=== PATIENT | male | born 1930 | race Caucasian/White ===

== ENCOUNTER 2016-08-15 02:15 | Observation (INO) | payer OTHER ==
[~2016-08-15] VITALS: Ht 182.9 cm; Wt 95.3 kg
[~2016-08-15 02:15] MED LIST: AMLODIPINE BESYL5 M1 PO; ASPIRIN EC81 M1 PO; BENAZEPRIL HCL40 MG PO; CRESTOR10 M1 PO; FUROSEMIDE20 M1 PO; FUROSEMIDE40 MG PO; LASIX40 M1 PO; METOPROLOL TART50 MG PO; VITAMIN D1000 UNIT PO
--- NOTE | 2016-08-15 15:58 | RADIOLOGY REPORT ---
EXAMINATION: XR PORTABLE CHEST CLINICAL INFORMATION: Postop pacemaker COMPARISON: 08/13/2016 TECHNIQUE: Portable view of the chest was obtained. FINDINGS: Left-sided pacemaker lead tip overlies the right ventricle. The lungs are clear with no focal consolidation. No evidence of pneumothorax, overt pulmonary edema, or pleural effusions. Prominent central vasculature is again demonstrated. The cardiac silhouette is again noted to be prominent. No acute osseous findings are seen. IMPRESSION: Pacemaker lead tip overlies the right ventricle. No pneumothorax.
--- NOTE | 2016-08-15 16:23 | Admission Core Measures ---
Admission Meds I reviewed the following Meds: Current Medications Sig/Lexi Start time Last Medication Dose Stop Time Status Admin Acetaminophen 650 MG Q6PRN PRN 08/15 1615 UNVr (Tylenol) Atorvastatin Calcium 40 MG 1700 08/15 1700 UNVr (Lipitor) Cefazolin Sodium 2 GM IQ8 08/16 0000 UNVr (Kefzol) 08/16 0829 N/A 1 UNIT (No Carrier) Furosemide 40 MG DAILY 08/16 1000 UNVr (Lasix) Heparin Sodium 5,000 UNIT Q8 08/15 2200 UNVr (Porcine) Lisinopril 40 MG DAILY 08/16 1000 UNVr (Prinivil) Metoprolol Tartrate 50 MG BID 08/15 2200 UNVr (Lopressor) Morphine Sulfate 2 MG Q3P PRN 08/15 1615 UNVr (Morphine) Ondansetron HCl 4 MG Q8P PRN 08/15 1615 UNVr (Zofran) Sodium Chloride 1,000 ML .Q20H 08/15 1615 UNVr (Normal Saline 0.9%) 08/16 1214 Acute Coronary Syndrome Inclusion Criteria ACS Diagnosis No Inpatient Core Measures LDL Reminder: If No, please order W/I first 24hr of stay Congestive Heart Failure Inclusion Criteria CHF Diagnosis No Cerebrovascular accident Inclusion Criteria CVA/TIA Diagnosis No Inpatient Core Measures Bedside Swallow Eval Reminder: If BSE failed, place ST order Antithrombotic Reminder: Order Antithrombotic Medication by end of day 2 Antithrombotic Reminder: Document Reason Antithrombotic Not ordered by end of day 2 AFIB/Flutter Reminder: If Present, add to problem list AFIB/Flutter Reminder: Order Anticoag Medication for pts with AFIB/Flutter Atherosclerosis Reminder: If Present, add to problem list LDL Reminder: If No, please order W/I first 24hr of stay PT Order Reminder: If No, please order Venous thromboembolism Inpatient Core Measures VTE Risk Factors: Age > 40, Surgery VTE Prophylaxis Ordered Inpt Mech & Pharm No Mech VTE prophylaxis d/t No contraindications No VTE Pharm Prophylaxis d/t No contraindications Inclusion Criteria - Per Current guidelines, there needs to be overlap - treatment for the first 5 days of Warfarin therapy. - Parenteral Anticoagulation (IV or SC) needs to be - given along with Warfarin therapy. VTE Diagnosis No VTE Type NONE VTE Confirmed by (Test) NONE Problem List As ranked by this Provider includes Assessment & Plan 1. Atrial fibrillation HOME MEDS Home Med List Aspirin (Ecotrin*) 81 MG TABLET.DR 1 TAB PO DAILY HEART HEALTH (Reported) Benazepril HCl 40 MG TABLET 1 TAB PO DAILY BP (Reported) Cholecalciferol (Vitamin D3) (Vitamin D) 1,000 UNIT TABLET 1 TAB PO DAILY SUPPLEMENT (Reported) Furosemide (Lasix) 40 MG TABLET 1 TAB PO DAILY DIURETIC (Reported) Metoprolol Tartrate 50 MG TABLET 1 TAB PO BID B/P (Reported) Rosuvastatin Calcium (Crestor) 10 MG TABLET 1 TAB PO AD CHOLESTEROL (Reported )
--- NOTE | 2016-08-15 17:17 | Patient Discharge Instructions ---
Discharge Instructions General Discharge Information You were seen/treated for: Bradycardia You had these procedures: 08/15/16 permanant pacemaker placement Watch for these problems: Redness, swelling, purulent draiange, fever, signs of infection. Excessive bleeding. Palpitations, dizziness, light headedness, syncopal episode, chest pain, shortness of breath Do not soak the wound: Yes No bath, but you may shower: Yes Other wound care: Dressing change daily or as needed. Diet Continue normal diet: Yes Activity Activity Self Limited: Yes Acute Coronary Syndrome Inclusion Criteria At DC or during hospital stay patient has or had the following: ACS DIAGNOSIS No Discharge Core Measures Meds if any: Prescribed or Continued at Discharge Meds if any: NOT Prescribed or Continued at Discharge Congestive Heart Failure Inclusion Criteria At DC or during hospital stay patient has or had the following: CHF DIAGNOSIS No Discharge Core Measures Meds if any: Prescribed or Continued at Discharge Meds if any: NOT Prescribed or Continued at Discharge Cerebrovascular accident Inclusion Criteria At DC or during hospital stay patient has or had the following: CVA/TIA Diagnosis No Discharge Core Measures Meds if any: Prescribed or Continued at Discharge Meds if any: NOT Prescribed or Continued at Discharge Venous thromboembolism Inclusion Criteria VTE Diagnosis No VTE Type NONE VTE Confirmed by (Test) NONE Discharge Core Measures - Per Current guidelines, there needs to be overlap - treatment for the first 5 days of Warfarin therapy. - If discharged on Warfarin prior to 5 days of - overlap therapy, the patient will need to be - assessed for post discharge needs including - *Post discharge parental anticoagulation - *Warfarin and/or parental anticoagulation education - *Follow up date to check INR post discharge At least 5 days overlap therapy as Inpatient No Meds if any: Prescribed or Continued at Discharge Note: Overlap Therapy is Warfarin and Anticoagulant Meds if any: NOT Prescribed or Continued at Discharge
--- NOTE | 2016-08-15 17:20 | PN- Thoracic Surgery ---
Subjective Subjective: Post Op Note s/p permanant pacemaker placement Patient without c/o. Pain controlled. Denies n/v. No chest pain or shortness of breath. Objective Vital Signs and I&Os BP: 150/88 P: 60 RR: 20 O2: 99% 2L NC T: 98.0F Physical Exam: General: NAD, comfortable, A&Ox3 Chest: CTAB. RRR. Left chest dressing c/d/i. Abdomen: soft, nondistended. Ext: No calve swelling/TTP, neurovascularly intact bilateral lower extremities. Current Medications: Current Medications Sig/Lexi Start time Last Medication Dose Route Stop Time Status Admin Acetaminophen 650 MG Q6PRN PRN 08/15 1615 AC PO Atorvastatin Calcium 40 MG 1700 08/15 1700 AC PO Cefazolin Sodium 2 GM IQ8 08/16 0000 AC N/A 1 UNIT IV 08/16 0829 Furosemide 40 MG DAILY 08/16 1000 AC PO Heparin Sodium 5,000 UNIT Q8 08/15 2200 AC (Porcine) SC Lisinopril 40 MG DAILY 08/16 1000 AC PO Metoprolol Tartrate 50 MG BID 08/15 2200 AC PO Morphine Sulfate 2 MG Q3P PRN 08/15 1615 AC IV Ondansetron HCl 4 MG Q8P PRN 08/15 1615 AC IV Sodium Chloride 1,000 ML .Q20H 08/15 1615 AC IV 08/16 1214 Assessment/Plan Assessment/Plan 86yo M POD#0 s/p permanant pacemaker insertion. AVSS, patient stable. CXR without evidence of PTX. - Pain control - PRN zofran - IVF, dc once tolerating PO - advance to heart healthy diet - left arm sling - I/O's - telemetry overnight - 23hr obs Core Measures/Miscellaneous Venous Thromboembolism VTE Risk Factors: Age > 40, Surgery VTE Contraindications: No Contraindications VTE Prophylaxis Ordered Inpt: Mech & Pharm VTE Diagnosis: No VTE Type: NONE VTE Confirmed by (Test): NONE Beta Andreas Is Beta Andreas a Home Med? Yes If Yes, Was This Ordered Today? Yes Antibiotics Is Patient on Antibiotics? Yes If Yes: prophylaxis
[2016-08-15 17:30] VITALS: BP 150/88
--- NOTE | 2016-08-15 17:34 | Operative Report ---
Operative/Inv Procedure Report Surgery Date: 08/15/16 Name of Procedure: MRI compatible VVI permanent pacemaker Pre-Operative Diagnosis: Symptomatic bradycardia Post-Operative Diagnosis: Same Estimated Blood Loss: scant Surgeon/Sandwich And Drink Cart Operator: IRA SHAH,CHARMAINE Chavez JR Anesthesia: local monitored anesthesi Operative/Procedure Note Note: After placement of monitoring lines the patient's left shoulder was prepped and draped in a sterile fashion. 1% lidocaine was used as a local anesthetic. An incision was made in the deltopectoral groove and carried down to prepectoralis fascia. The cephalic vein was identified and was a fairly large caliber vessel. It was encircled with 2 silk ties. Wall venotomy was made and a Medtronic pacemaker lead model #83 SR 01 was advanced directly through the cephalic vein into the pulmonary outflow tract understands that under fluoroscopic guidance. The lead was withdrawn into the right ventricular cavity and positioned at the apex. R waves were measured at 10 mV. The pacing threshold was 0.3 V with a current of 0.2 mA and impedance of 1039 ohms. The lead was tied to the cephalic vein which was occluded. It was then secured to the prepectoralis fascia with Ethibond sutures. The lead was then connected to a Medtronic single-chamber MRI compatible pacemaker. The pocket was fashioned above the prepectoralis fascia. Hemostasis was achieved with electrocautery and surgical clips. The pocket was flushed with antibiotic irrigation. The pocket was closed with running Vicryl subcutaneous suture followed by running Vicryl subarticular suture. It was dressed with a dry sterile dressing and a pressure dressing. The patient tolerated the procedure well and was brought to the recovery room awake in stable condition. CC: NICHOL SHAH,PAULINA Wakefield
[2016-08-15 21:35] VITALS: BP 152/80
--- NOTE | 2016-08-15 23:18 | NUR ---
NURSING NOTE; PT S/P PACEMAKER PLACEMENT. VSS. PT PACED IN 60'S. LCW PACER SITE C/D/I. NO PAIN. SLING IN PLACE. PT RESTING COMFORTABLY.
[2016-08-16 07:00] VITALS: BP 154/84
[2016-08-16 08:59] VITALS: BP 156/72
--- NOTE | 2016-08-16 16:36 | RADIOLOGY REPORT ---
EXAMINATION:\H\ \N\XR CHEST CLINICAL INFORMATION: Single-lead pacemaker insertion. COMPARISON: 08/13/2016 TECHNIQUE: Single image obtained with the portable image intensifier during pacemaker insertion. Single image submitted. Fluoroscopy time: 2.39 minutes FINDINGS: A nearly nondiagnostic image centered over the lower mediastinum is submitted. A segment of a cardiac lead projects from the region of the right atrium toward the right ventricle. Osteophytes in the spine. IMPRESSION: Imaging assistance provided during pacemaker insertion.
== END 2016-08-16 12:25 ==
LOC: STS 02:15 → EDSTATUS 07:00 → STS 07:00 → PACUH 15:57 → 1NO 15:57
PROVIDERS: ADMIT Thoracic Surgery (Cardiothoracic Vascular Surgery)
PROC: 0JH604Z Insertion of Pacemaker, Single Chamber into Chest Subcutaneous Tissue and Fascia, Open Approach (ICD-10-PCS; principal; 2016-08-15)
PROC: 02HK3JZ Insertion of Pacemaker Lead into Right Ventricle, Percutaneous Approach (ICD-10-PCS; 2016-08-15)
DX: R00.1 Bradycardia, unspecified (principal); R60.9 Edema, unspecified; I48.92 Unspecified atrial flutter; I48.91 Unspecified atrial fibrillation; Z79.01 Long term (current) use of anticoagulants
CPT/HCPCS: 1328; 1425; 1530; 1748; 2000; 6020; 93005; 93010; C1786; C1898; G0378; J0690; J1644

== ENCOUNTER 2017-02-07 07:10 | Inpatient (IN) | payer OTHER ==
[~2017-02-07] VITALS: Ht 182.9 cm; Wt 93.0 kg
[~2017-02-07 07:10] MED LIST changes: +METOPROLOL TART50 M1 PO; -METOPROLOL TART50 MG PO
--- NOTE | 2017-02-07 07:24 | ED GENERAL ADULT ---
History of Present Illness General Chief Complaint: Lower Extremity Problems Stated Complaint: EDEMA TO LOWER EXTREMITIES Source: patient Exam Limitations: no limitations Vital Signs & Intake/Output Vital Signs & Intake/Output Vital Signs Date Time Temp Pulse Resp B/P B/P Pulse O2 O2 Flow FiO2 Mean Ox Delivery Rate 02/07 0932 97.8 76 20 175/98 96 Room Air 02/07 0843 98.0 80 20 174/79 96 Room Air 02/07 0746 97.0 75 20 171/83 96 Room Air 02/07 0729 94 Room Air 02/07 0714 96.9 73 18 163/90 93 Room Air Allergies Coded Allergies: NO KNOWN ALLERGIES (12/18/15) Reconcile Medications Aspirin (Ecotrin*) 81 MG TABLET.DR 1 TAB PO DAILY HEART HEALTH (Reported) Benazepril HCl 40 MG TABLET 1 TAB PO DAILY BP (Reported) Cholecalciferol (Vitamin D3) (Vitamin D) 1,000 UNIT TABLET 1 TAB PO DAILY SUPPLEMENT (Reported) Furosemide 40 MG TABLET 1 TAB PO DAILY WATER RETENTION (Reported) Metoprolol Tartrate 50 MG TABLET 1 TAB PO BID B/P (Reported) Rosuvastatin Calcium (Crestor) 10 MG TABLET 1 TAB PO AD CHOLESTEROL (Reported ) Triage Note: 86 YO MALE TO ER C/O SWELLING TO BILATERAL LOWER EXTREMITIES. 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 STATES HIS LEGS HAVE BEEN SWOLLEN FOR "AWHILE" BUT HIS MADE HIM COME IN TODAY. DENIES SOB, CHEST PAIN. PT STATES HE ONLY WEARS OXYGEN AT NIGTHTIME (2L). SATS 89-93% IN TRIAGE. Triage Nurses Notes Reviewed? yes Onset: Gradual Duration: week(s): (3) Timing: recent history HPI: 02/07/17 7:35 AM The patient is a 86-year-old male who presents to the emergency department complaining of bilateral leg swelling. According to the patient he's had bilateral leg swelling over the past 3 weeks. He denies any chest pain or shortness of breath. No fever. The onset of the symptoms were abrupt, the duration has been 3 weeks, the severity is significant as his symptoms required him to come to the emergency department for care. Past History Travel History Traveled to [place] past 21 day No Medical History Any Pertinent Medical History? 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 No Review of Systems Review of Systems Constitutional: Reports: no symptoms. EENTM: Reports: no symptoms. Respiratory: Denies: short of breath. Cardiovascular: Denies: chest pain. GI: Reports: no symptoms. Genitourinary: Reports: no symptoms. Musculoskeletal: Reports: no symptoms. Skin: Reports: rash. Neurological/Psychological: Reports: no symptoms. Hematologic/Endocrine: Reports: no symptoms. Immunologic/Allergic: Reports: no symptoms. All Other Systems: Reviewed and Negative Physical Exam Physical Exam General Appearance: alert, awake, anxious, mild distress Head: atraumatic, normal appearance Eyes: Bilateral: normal appearance, PERRL, EOMI. Ears, Nose, Throat: normal ENT inspection Neck: normal inspection Respiratory: no respiratory distress, lungs clear Cardiovascular: regular rate/rhythm, edema Peripheral Pulses: 4+ radial (R), 4+ radial (L), 4+ dorsalis pedis (R), 4+ dorsalis pedis (L) Gastrointestinal: non-tender Back: normal range of motion Extremities: pedal edema, swelling Neurologic/Psych: no motor/sensory deficits, awake, alert, oriented x 3 Skin: rash (stasis dermatitis) Lymphatic: no anterior cervical nura Comments: He has bilateral lower extremity dependent edema. Excellent bilateral dorsalis pedis pulses. He has normal capillary refill to all toes of both feet. Both feet show stasis dermatitis. There is minimal erythema. Mild increased warmth. There is a superficial abrasion on the anterior left truong. Core Measures ACS in differential dx? No CVA/TIA Diagnosis: No Severe Sepsis Present: No Septic Shock Present: No Progress Differential Diagnoses I considered the following diagnoses in my evaluation of the patient: [ Cellulitis, stasis dermatitis, DVT, dependent edema, necrotizing fasciitis] Plan of Care: Orders Procedure Date/time Status CBC WITHOUT DIFFERENTIAL 02/08 600 Active BASIC ELECTROLYTES PLUS BUN&CR 02/08 06 Active CHF Diet 02/07 L Active TROPONIN LEVEL 02/07 1400 Active EKG 02/07 1400 Active Admit to inpatient 02/07 1117 Active Pathway - chart 02/07 1101 Active House Staff 02/07 1101 Active Patient Data 02/07 1051 Active Vital Signs 02/07 1049 Active Code Status 02/07 1049 Active TROPONIN LEVEL 02/07 0734 Complete COMPREHENSIVE METABOLIC PANEL 02/07 0734 Complete CBC WITHOUT DIFFERENTIAL 02/07 0734 Complete EKG 02/07 0721 Active TRC EVALUATION (GEN) 02/07 UNK Active Weight 02/07 UNK Active VTE Mechanical Prophylaxis 02/07 UNK Active Intake & Output 02/07 UNK Active Laboratory Tests 02/07/ 0748: Anion Gap 7, Estimated GFR 58 L, BUN/Creatinine Ratio 24.2, Glucose 93, Calcium 9.7, Total Bilirubin 1.2, AST 28, ALT 35, Alkaline Phosphatase 84, Troponin I 0.02, Total Protein 7.1, Albumin 4.2, Globulin 2.9, Albumin/Globulin Ratio 1.4, CBC w Diff NO MAN DIFF REQ, RBC 5.45, MCV 87.6, MCH 27.8, RDW 18.6 H, MPV 8.4, Gran % 63.8, Lymphocytes % 22.0, Monocytes % 8.5, Eosinophils % 4.9, Basophils % 0.8, Absolute Granulocytes 4.2, Absolute Lymphocytes 1.5, Absolute Monocytes 0.6 , Absolute Eosinophils 0.3, Absolute Basophils 0.1, PUBS MCHC 31.8 L Initial ED EKG: ventricular paced beats, motion artifact, no significant change from old. Prior EKG: unchanged Departure Departure Disposition: STILL A PATIENT Condition: Stable Clinical Impression Primary Impression: CHF (congestive heart failure) Secondary Impressions: Anasarca, Dependent edema, Stasis dermatitis Referrals: LILIA SHAH,JUNIOR Garrison (PCP/Family) Departure Forms: Customer Survey General Discharge Information Admission Note Spoke With: CHRISTIANO SHAH,NASREEN Documentation of Exam: Documentation of any treatments & extenuating circumstances including Concerns Regarding Discharge (functional status, medication knowledge or non-compliance, living conditions, etc.) that warrant an admission rather than observation: [The patient has anasarca, CHF, severe stasis dermatitis now with ulcerations to the left anterior tibia. He is failing by mouth Lasix. He needs leg elevation, IV diuresis, serial troponins, consider cardiology consultation,] Critical Care Note Critical Care Note Critical Care Time: non-applicable
[2017-02-07 07:56] LABS: ABSOLUTE BASOPHIL COUNT 0.1 /CUMM (0.0-0.2); ABSOLUTE EOSINOPHIL COUNT 0.3 /CUMM (0.0-0.7); ABSOLUTE GRANULOCYTE CT 4.2 /CUMM (1.4-6.5); ABSOLUTE LYMPH COUNT 1.5 /CUMM (1.2-3.4); ABSOLUTE MONOCYTE COUNT 0.6 /CUMM (0.10-0.60); BASOPHIL % 0.8 % (0.0-2.0); EOSINOPHIL % 4.9 % (0-5); GRANULOCYTE % 63.8 % (42.2-75.2); HEMATOCRIT 47.7 % (42-52); MEAN CORPUSCULAR HGB 27.8 PG (27.0-31.0); MEAN CORPUSCULAR HGB CONC 31.8 G/DL (33.0-37.0); MEAN CORPUSCULAR VOLUME 87.6 FL (80.0-94.0); MEAN PLATELET VOLUME 8.4 FL (7.4-10.4); PLATELET COUNT 168 /CUMM (130-400); RBC DISTRIBUTION WIDTH 18.6 % (11.5-14.5); RED BLOOD CELL CT 5.45 /CUMM (4.70-6.10); WHITE BLOOD CELL COUNT 6.7 /CUMM (4.8-10.8)
--- NOTE | 2017-02-07 08:27 | ULTRASOUND REPORT ---
EXAMINATION: US TRIPLEX OF LOWER EXTREMITIES, BILATERAL CLINICAL INFORMATION: Bilateral leg swelling. COMPARISON: Bilateral lower extremity DVT study done on 12/18/2015. TECHNIQUE: Color-flow triplex imaging with spectral analysis and compression Doppler were performed on the lower extremities. FINDINGS: Respiratory variation, normal compression and augmented flow are noted throughout the lower extremities. The visualized common femoral vein, superficial femoral vein, profunda femoral vein, popliteal vein and midcalf peroneal and posterior tibial venous segments show no evidence of deep venous thrombosis. There is no Grimaldo's cyst. No significant change since prior study. IMPRESSION: No evidence of deep venous thrombosis at both lower extremities, unchanged since 12/18/2015.
[2017-02-07] MEDS ORDERED: FUROSEMIDE40 M1 PO (08:31)
--- NOTE | 2017-02-07 09:50 | RADIOLOGY REPORT ---
EXAMINATION: XR PORTABLE CHEST CLINICAL INFORMATION: 86-year-old male with leg swelling, suspected CHF. COMPARISON: Chest done on 08/15/2016. TECHNIQUE: Portable frontal view of the chest was obtained. FINDINGS: There is evidence of mild pulmonary venous hypertension present. Nonspecific right infrahilar opacity is noted, may represent changes secondary to enlarged pulmonary artery, infrahilar lung mass, focal area of vascular congestion or combination thereof. The right lateral CP angle is mildly blunted suggestive of small effusion, new since prior study. Single-lead pacer wire is present with its tip seen projecting in the region of the right ventricle. The cardiomediastinal silhouette is mildly enlarged. The pulmonary venous congestion and possible trace right-sided pleural effusion appear new since prior study. IMPRESSION: 1. Features consistent with mild CHF. 2. Nonspecific right infrahilar masslike opacity is noted, not optimally characterized. Nonemergent follow-up contrast enhanced CT scan of the chest may be considered for further full detail evaluation, if clinically appropriate.
--- NOTE | 2017-02-07 10:57 | History & Physical ---
LOUISA OSEGUERA MD,[facility] 02/07/17 1057: General Information and HPI MD Statement: I have seen and personally examined MARLENY LORA and documented this H&P. The patient is a 86 year old M who presented with a patient stated chief complaint of [bilateral lower extremity swelling]. 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 According to the patient, this lower extremity swelling started 3 weeks ago and progressively got worse. He was initially taking his home dose of 40 mg of by mouth Lasix but when the symptoms are not relieved he increased to 60 mg of Lasix in the last few days. Despite increase in by mouth Lasix his symptoms were not getting better and therefore Patient was convinced by his to come to emergency department. Patient denied any recent change in medications. Patient also denied any recent increase in salt intake or eating out recently. Review of system was negative for any headaches, acute visual changes, chest pain, dyspnea on exertion, nocturnal dyspnea, palpitations, fever, rash, cough, nausea, vomiting, abdominal pain, constipation, diarrhea, or dysuria. 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 spouse, child Services at Home: None Primary Language: Uzbek Functional Ability ADLs Independent: dressing, eating, toileting, bathing. Ambulation: independent IADLs Independent: shopping, housework, finances, food prep, telephone. Needs Assist: transportation, medication admin. Review of Systems Review of Systems Constitutional: Denies: chills, fever. EENTM: Denies: visual changes. Cardiovascular: Denies: chest pain, palpitations. Respiratory: Denies: cough, short of breath. GI: Denies: bloating, nausea, vomiting. Genitourinary: Denies: discharge. Musculoskeletal: Denies: back pain. All Other Systems: Reviewed and Negative Exam & Diagnostic Data Last 24 Hrs of Vital Signs/I&O Vital Signs Date Time Temp Pulse Resp B/P B/P Pulse O2 O2 Flow FiO2 Mean Ox Delivery Rate 02/07 0932 97.8 76 20 175/98 96 Room Air 02/07 0843 98.0 80 20 174/79 96 Room Air 02/07 0746 97.0 75 20 171/83 96 Room Air 02/07 0729 94 Room Air 02/07 0714 96.9 73 18 163/90 93 Room Air Intake & Output 02/07 1600 02/07 0800 02/07 0000 Intake Total 0 Output Total 100 Balance -100 0 Intake, Oral 0 Output, Urine 100 Patient 210 lb Weight Weight Reported by Patient Measurement Method Physical Exam General Appearance Alert, Oriented X3, Cooperative Skin No Rashes HEENT Atraumatic, PERRLA Neck No JVD Cardiovascular Regular Rate, Normal S1, Normal S2, lEFT UPPER CHEST PACEMAKER Lungs Normal Air Movement, DECREASED AIR ENTRY AT THE LUNG BASES Abdomen Normal Bowel Sounds, Soft, No Tenderness, HERNIA, SCAR ANURAG Neurological Normal Speech, Normal Tone, Sensation Intact Extremities 2 + EXTREMITY EDEMA. CHRONIC SKIN CHANGES AND SKIN BREAK DOWN Vascular Normal Pulses Last 24 Hrs of Labs/Burak: Laboratory Tests 02/07/17 0748: Anion Gap 7, Estimated GFR 58 L, BUN/Creatinine Ratio 24.2, Glucose 93, Calcium 9.7, Total Bilirubin 1.2, AST 28, ALT 35, Alkaline Phosphatase 84, Troponin I 0.02, Total Protein 7.1, Albumin 4.2, Globulin 2.9, Albumin/Globulin Ratio 1.4, CBC w Diff NO MAN DIFF REQ, RBC 5.45, MCV 87.6, MCH 27.8, RDW 18.6 H, MPV 8.4, Gran % 63.8, Lymphocytes % 22.0, Monocytes % 8.5, Eosinophils % 4.9, Basophils % 0.8, Absolute Granulocytes 4.2, Absolute Lymphocytes 1.5, Absolute Monocytes 0.6 , Absolute Eosinophils 0.3, Absolute Basophils 0.1, PUBS MCHC 31.8 L Diagnostic Data EKG Results Ventricular paced, heart rate 62, left axis deviation, QTC 512, CXR Results Features consistent with mild CHF. Nonspecific right infrahilar masslike opacity is noted, not optimally characterized. Nonemergent follow-up contrast enhanced CT scan of the chest may be considered for further full detail evaluation, if clinically appropriate. Other Results No evidence of deep venous thrombosis at both lower extremities, unchanged since 12/18/2015. 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 Vitals in emergency department patient afebrile, no tachypnea, no tachycardia, systolic blood pressure ranging from 171-192 and diastolic 83-100. Oxygen saturation of 93-96% on room air. Significant labs on admission, no significant electrolyte abnormality, sodium 140, potassium of 4.2, BUN of 29 and creatinine of 1.2, platelet count of 168. Troponin of 0.02, no acute ST changes in EKG, chest x-ray showed Features consistent with mild CHF. Patient was admitted on telemetry so for the management of falling problems #1 Acute on chronic diastolic CHF #2 Bilateral Lower extremity erythema/skin breakdown #3 Recent pacemaker placement for bifascicular block #4 History of paroxysmal atrial fibrillation not on anticoagulation -Most likely acute diastolic CHF exacerbation vs rule out MA vs non compliance with medications -No acute EKG ST changes and negative troponin 0.02 x 2, Pro-Bnp 2810. - Hemodynamically stable, 2+ve B/L Lowr extremity edema with erythema and chronic skin changes - CXR shows signs of fluid overload. - Admit to telemetry - Vitals q Shift - Monitor I/O - Daily weight - Cardio consult - Last Echo was done in was done in vb net developer's office in 2017 - Continue Lisinopril 10mg - Give Furosemide 40mg IV BID - Continue Metoprolol 50 mg PO Daily - lipid panel was checked recently - ASA 81 mg Po daily. - Give dinner (CHF Diet) Patient is full code Patient is on heparin subcutaneous for DVT prophylaxis Patient is on pain management Patient is on CHF diet As Ranked By This Provider Problem List: 1. CHF (congestive heart failure) 2. Pulmonary hypertension Core Measures/Miscellaneous Acute Coronary Syndrome ACS Diagnosis: Yes Cerebrovascular Accident CVA/TIA Diagnosis: No Congestive Heart Failure CHF Diagnosis: Yes Date of most recent Echo: 12/18/15 Last Known EF %: 65 EDNA/ARB for EF <40%: Yes VTE (View Protocol) VTE Risk Factors: Acute medical illness, Age > 40 No [facility] VTE prophylaxis d/t: No contraindications No VTE Pharm Prophylaxis d/t: No contraindications VTE Diagnosis: No VTE Type: NONE VTE Confirmed by (Test): NONE Sepsis (View Protocol) Severe Sepsis Present: No Septic Shock Septic Shock Present: No Miscellaneous Documentation Attending Case Discussed With: SUSAN CAT MD Primary Care Physician: JUNIOR RODRIGUES MD Patient sees these Specialists Lodging Facilities Manager Level of Patient Care: Telemetry Consults Needed: Consulting Specialty: Cardiology SUSAN CAT 02/14/17 1132: General Information and HPI Allergies/Medications Home Med list Aspirin (Ecotrin*) 81 MG TABLET.DR 1 TAB PO DAILY HEART HEALTH (Reported) Benazepril HCl 40 MG TABLET 1 TAB PO DAILY BP (Reported) Cholecalciferol (Vitamin D3) (Vitamin D) 1,000 UNIT TABLET 1 TAB PO DAILY SUPPLEMENT (Reported) Furosemide 40 MG TABLET 1 TAB PO QAM WATER RETENTION (Reported) Furosemide (Lasix) 20 MG TABLET 1 TAB PO QPM LEG EDEMA Metoprolol Tartrate 50 MG TABLET 1 TAB PO BID B/P (Reported) Rosuvastatin Calcium (Crestor) 10 MG TABLET 1 TAB PO AD CHOLESTEROL (Reported ) Attending MD Review Statement Attending Statement Attending MD Statement: examined this patient, discuss w/resident/PA/POWER GENERATION TECHNICIAN, agreed w/resident/PA/POWER GENERATION TECHNICIAN, reviewed EMR data (avail), discussed with nursing, discussed with case mgmt Attending Assessment/Plan: Agree with the above assessment plan. Please see my separate attending note for more details.
[2017-02-07 13:04] VITALS: BP 192/100
--- NOTE | 2017-02-07 13:32 | Admission Certification ---
Admission Certification Certification Statement - As attending physician, I certify that at the time of - admission, based on clinical presentation, severity of - symptoms, need for further diagnostic testing and - therapeutic interventions, and risk of adverse outcomes - without in-hospital treatment, in my clinical assessment, - this patient requires an acute hospital stay for a minimum - of two nights or longer. I have also considered psychsocial - factors such as support system, advanced age, financial - issues, cognitive issues, and failed out-patient treatments, - past re-admission history, safety of patient, and lack of - compliance as applicable. Specific rationale supporting this admission is: acute chf exacerbation
--- NOTE | 2017-02-07 14:23 | Cons- Cardiology ---
General Information and HPI Consulting Request Date of Consult: 02/07/17 Requested By: SUSAN CAT MD Reason for Consult: edema Source of Information: patient, old records History of Present Illness: This is a pleasant 86-year-old male with a past medical history of heart failure with preserved ejection fraction, pulmonary hypertension, paroxysmal atrial flutter not on anticoagulation due to GI bleed risk, hypertension, hyperlipidemia, and bifascicular block status post single lead pacemaker 2016 who presents to [facility] with chief complaint approximately 3 weeks of worsening lower extremity edema with associated discomfort. He denies associated orthopnea, paroxysmal nocturnal dyspnea, chest pain, shortness of breath, palpitations, headache, slurring of speech, or syncope. Denies associated subjective fever. Was already on oral Lasix prior to the edema developing. Denies productive cough. Allergies/Medications Allergies: Coded Allergies: NO KNOWN ALLERGIES (12/18/15) Home Med List: Aspirin (Ecotrin*) 81 MG TABLET.DR 1 TAB PO DAILY HEART HEALTH (Reported) Benazepril HCl 40 MG TABLET 1 TAB PO DAILY BP (Reported) Cholecalciferol (Vitamin D3) (Vitamin D) 1,000 UNIT TABLET 1 TAB PO DAILY SUPPLEMENT (Reported) Furosemide 40 MG TABLET 1 TAB PO DAILY WATER RETENTION (Reported) Metoprolol Tartrate 50 MG TABLET 1 TAB PO BID B/P (Reported) Rosuvastatin Calcium (Crestor) 10 MG TABLET 1 TAB PO AD CHOLESTEROL (Reported ) Current Medications: Current Medications Sig/Lexi Start time Last Medication Dose Route Stop Time Status Admin Aspirin Buffered 81 MG DAILY 02/07 1257 AC 02/07 PO 1332 Atorvastatin Calcium 40 MG 1700 02/07 1700 AC PO Cholecalciferol 1,000 IU DAILY 02/07 1257 AC 02/07 PO 1333 Furosemide 40 MG DAILY 02/08 1000 AC IV Furosemide 0 .STK-MED ONE 02/07 1116 DC IV Furosemide 20 MG ONCE ONE 02/07 1100 DC 02/07 IV PUSH 02/07 1101 1112 Heparin Sodium 5,000 UNIT Q8 02/07 1400 AC 02/07 (Porcine) SC 1334 Lisinopril 40 MG DAILY 02/07 1259 AC 02/07 PO 1332 Metoprolol Tartrate 50 MG BID 02/07 1258 AC 02/07 PO 1333 Review of Systems Review of Systems: As per above HPI. The remainder of a 10 point review of systems was reviewed and was otherwise negative. 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 spouse, child Services at Home: None Primary Language: Samoan Smoking Status: Former Smoker Functional Ability ADLs Independent: dressing, eating, toileting, bathing. Ambulation: independent IADLs Independent: shopping, housework, finances, food prep, telephone. Needs Assist: transportation, medication admin. ECHO Results (as available) Date of last Echo 12/18/15 EF% 60 Exam & Diagnostic Data Vital Signs and I&O Vital Signs Date Time Temp Pulse Resp B/P B/P Pulse O2 O2 Flow FiO2 Mean Ox Delivery Rate 02/07 1333 77 192/100 02/07 1332 77 192/100 02/07 1304 98.3 77 20 192/100 95 Room Air 02/07 1156 97.0 94 18 189/92 95 Room Air 02/07 1100 98.0 88 174/90 02/07 0932 97.8 76 20 175/98 96 Room Air 02/07 0843 98.0 80 20 174/79 96 Room Air 02/07 0746 97.0 75 20 171/83 96 Room Air 02/07 0729 94 Room Air 02/07 0714 96.9 73 18 163/90 93 Room Air Intake & Output 02/07 1600 02/07 0800 02/07 0000 02/06 1600 02/06 0800 02/06 0000 Intake Total 0 Output Total 450 Balance -450 0 Intake, Oral 0 Output, Urine 450 Patient 207 lb 210 lb Weight Weight Chair scale Reported by Patient Measurement Method Physical Exam: General: no apparent distress. Alert. Eyes: No obvious scleral icterus. HEENT: No jugular venous distention or abnormal jugular venous pulsations. Cardiovascular: Normal intensity S1/S2. Regular. PPM. Respiratory: No rales or rhonchi Abdomen: Soft, nontender with no guarding or rebound tenderness. Musculoskeletal: No clubbing or cyanosis noted, 2+ lower extremity edema Skin: Warm, Erythema, ulceration noted Neurologic: No gross focal deficits noted. Labs/Burak Results: Laboratory Tests 02/07 0748 Chemistry Sodium (137 - 145 mmol/L) 140 Potassium (3.5 - 5.1 mmol/L) 4.2 Chloride (98 - 107 mmol/L) 98 Carbon Dioxide (22 - 30 mmol/L) 34 H Anion Gap (5 - 16) 7 BUN (9 - 20 mg/dL) 29 H Creatinine (0.7 - 1.2 mg/dL) 1.2 Estimated GFR (>60 ml/min) 58 L BUN/Creatinine Ratio (7 - 25 %) 24.2 Glucose (65 - 99 mg/dL) 93 Calcium (8.4 - 10.2 mg/dL) 9.7 Total Bilirubin (0.2 - 1.3 mg/dL) 1.2 AST (17 - 59 U/L) 28 ALT (21 - 72 U/L) 35 Alkaline Phosphatase (< 127 U/L) 84 Troponin I (<0.11 ng/ml) 0.02 Total Protein (6.3 - 8.2 g/dL) 7.1 Albumin (3.5 - 5.0 g/dL) 4.2 Globulin (1.9 - 4.2 gm/dL) 2.9 Albumin/Globulin Ratio (1.1 - 2.2 %) 1.4 Hematology CBC w Diff NO MAN DIFF REQ WBC (4.8 - 10.8 /CUMM) 6.7 RBC (4.70 - 6.10 /CUMM) 5.45 Hgb (14.0 - 18.0 G/DL) 15.2 Hct (42 - 52 %) 47.7 MCV (80.0 - 94.0 FL) 87.6 MCH (27.0 - 31.0 PG) 27.8 RDW (11.5 - 14.5 %) 18.6 H Plt Count (130 - 400 /CUMM) 168 MPV (7.4 - 10.4 FL) 8.4 Gran % (42.2 - 75.2 %) 63.8 Lymphocytes % (20.5 - 51.1 %) 22.0 Monocytes % (1.7 - 9.3 %) 8.5 Eosinophils % (0 - 5 %) 4.9 Basophils % (0.0 - 2.0 %) 0.8 Absolute Granulocytes (1.4 - 6.5 /CUMM) 4.2 Absolute Lymphocytes (1.2 - 3.4 /CUMM) 1.5 Absolute Monocytes (0.10 - 0.60 /CUMM) 0.6 Absolute Eosinophils (0.0 - 0.7 /CUMM) 0.3 Absolute Basophils (0.0 - 0.2 /CUMM) 0.1 PUBS MCHC (33.0 - 37.0 G/DL) 31.8 L Diagnostic Data EKG Results Tracing was personally reviewed; paced rhythm with underlying atrial flutter; baseline artifact/wander CXR Results 1. Features consistent with mild CHF. 2. Nonspecific right infrahilar masslike opacity is noted, not optimally characterized. Nonemergent follow-up contrast enhanced CT scan of the chest may be considered for further full detail evaluation, if clinically appropriate. Other Results venous Doppler IMPRESSION: No evidence of deep venous thrombosis at both lower extremities, unchanged since 12/18/2015. Assessment/Plan Assessment/Plan 1. Acute on chronic diastolic heart failure with lower extremity edema 2. Paroxysmal atrial flutter not on anticoagulation due to GI bleed risk 3. Pulmonary hypertension 4. Hypertension 5. Hyperlipidemia 6. Prior colorectal cancer status post resection and radiation therapy 7. History of bifascicular block; status post single lead pacemaker 2016 Patient presents with increasing lower extremity edema over the last 3 weeks. May be due to right-sided heart failure in the setting of known severe pulmonary hypertension; would obtain an echocardiogram. Agree with IV Lasix. Lower extremity erythema noted, monitor for signs of superimposed infection. Would obtain a baseline BNP level. If blood pressure remains elevated consider increasing the metoprolol to 100 milligrams p.o. b.i.d.. Consider wound care evaluation for the lower extremity ulceration. Kt Jean MD [facility] Consult Acknowledgment - Thank you for your consult request.
[2017-02-07 14:47] VITALS: BP 128/72
--- NOTE | 2017-02-07 14:51 | PN- Att Addend ---
Attending MD Review Statement Attending Statement Attending MD Statement: examined this patient, discuss w/resident/PA/HEEL SPRAYER FIRST, agreed w/resident/PA/HEEL SPRAYER FIRST, reviewed EMR data (avail), discussed w/nursing, discussed w/ case mgmt Attending Assessment/Plan: Laboratory Tests 02/07/17 0748: Anion Gap 7, Estimated GFR 58 L, BUN/Creatinine Ratio 24.2, Glucose 93, Calcium 9.7, Total Bilirubin 1.2, AST 28, ALT 35, Alkaline Phosphatase 84, Troponin I 0.02, Total Protein 7.1, Albumin 4.2, Globulin 2.9, Albumin/Globulin Ratio 1.4, CBC w Diff NO MAN DIFF REQ, RBC 5.45, MCV 87.6, MCH 27.8, RDW 18.6 H, MPV 8.4, Gran % 63.8, Lymphocytes % 22.0, Monocytes % 8.5, Eosinophils % 4.9, Basophils % 0.8, Absolute Granulocytes 4.2, Absolute Lymphocytes 1.5, Absolute Monocytes 0.6 , Absolute Eosinophils 0.3, Absolute Basophils 0.1, PUBS MCHC 31.8 L Vital Signs Date Time Temp Pulse Resp B/P B/P Pulse O2 O2 Flow FiO2 Mean Ox Delivery Rate 02/07 1424 Room Air Room Air 02/07 1333 77 192/100 02/07 1332 77 192/100 02/07 1304 98.3 77 20 192/100 95 Room Air 02/07 1156 97.0 94 18 189/92 95 Room Air 02/07 1100 98.0 88 174/90 02/07 0932 97.8 76 20 175/98 96 Room Air 02/07 0843 98.0 80 20 174/79 96 Room Air 02/07 0746 97.0 75 20 171/83 96 Room Air 02/07 0729 94 Room Air 02/07 0714 96.9 73 18 163/90 93 Room Air 86-Male with PMH significant for hypertension, hyperlipidemia, paroxysmal atrial flutter not on anticoagulation because of GI bleeding, history of congestive heart failure, colorectal cancer s/p surgery and radiation in 2012, oxygen dependent on 2 L only at nighttime came to emergency department for chief complaint of bilateral lower extremity swelling going on for few weeks. Pt noted worsening swelling in few weeks. No orthopnea, no sob , no exertional dyspnea, no claudication symptoms, no chest pain. Pt has h/o severe pulm htn . Acute diastolic chf exacerbation in setting of severe pulm htn- start on iv lasix 40mg daily. monitor on tele, strict I & O. cardiology consult Redness and swellilng b/l LE- does not look infected at present but will monitor closelly for signs of infection. d/w pt the care plan.
[2017-02-07 22:00] VITALS: BP 138/88
[2017-02-08 07:43] VITALS: BP 142/82
[2017-02-08 07:58] LABS: ABSOLUTE BASOPHIL COUNT 0 /CUMM (0.0-0.2); ABSOLUTE EOSINOPHIL COUNT 0.3 /CUMM (0.0-0.7); ABSOLUTE MONOCYTE COUNT 0.5 /CUMM (0.10-0.60); BASOPHIL % 0.5 % (0.0-2.0); EOSINOPHIL % 4.8 % (0-5); GRANULOCYTE % 67.8 % (42.2-75.2); HEMATOCRIT 49.1 % (42-52); MEAN CORPUSCULAR HGB 28.1 PG (27.0-31.0); MEAN PLATELET VOLUME 8.5 FL (7.4-10.4); PLATELET COUNT 158 /CUMM (130-400); RBC DISTRIBUTION WIDTH 18.5 % (11.5-14.5); RED BLOOD CELL CT 5.58 /CUMM (4.70-6.10); WHITE BLOOD CELL COUNT 5.9 /CUMM (4.8-10.8)
--- NOTE | 2017-02-08 10:08 | PN- Housestaff ---
Subjective Follow-up For: #1 Acute on chronic diastolic CHF #2 Bilateral Lower extremity erythema/skin breakdown #3 Recent pacemaker placement for bifascicular block #4 History of paroxysmal atrial fibrillation not on anticoagulation Complaints: no complaints Tele-Events Since Last Visit: NO EVENTS Subjective: Patient was examined by me at bedside, patient looks comfortable. Review of Systems Constitutional: Reports: no symptoms. EENTM: Reports: no symptoms. Cardiovascular: Reports: no symptoms. Respiratory: Reports: no symptoms. Gastrointestinal: Reports: no symptoms. Genitourinary: Reports: no symptoms. Musculoskeletal: Reports: no symptoms. Skin: Reports: see HPI, erythema, lesions (lower limb ulcers). Neurological/Psychological: Reports: no symptoms. Hematologic/Endocrine: Reports: no symptoms. Immunologic/Allergic: Reports: no symptoms. Objective Last 24 Hrs of Vital Signs/I&O Vital Signs Date Time Temp Pulse Resp B/P B/P Pulse O2 O2 Flow FiO2 Mean Ox Delivery Rate 02/08 0817 68 142/82 02/08 0817 68 142/82 02/08 0743 98.1 68 20 142/82 95 Nasal Cannula 02/08 0000 Nasal 2.0L Cannula 02/07 2200 98.0 62 20 138/88 99 Nasal 2.0L Cannula 02/07 2150 62 138/88 02/07 1447 98.8 60 20 128/72 95 Room Air 02/07 1424 Room Air Room Air 02/07 1333 77 192/100 02/07 1332 77 192/100 02/07 1304 98.3 77 20 192/100 95 Room Air 02/07 1156 97.0 94 18 189/92 95 Room Air Intake & Output 02/08 1600 02/08 0800 02/08 0000 Intake Total 200 690 Output Total 500 1080 Balance -300 -390 Intake, IV 0 0 Intake, Oral 200 690 Number 1 0 Bowel Movements Output, Urine 500 1080 Patient 206 lb Weight Weight Chair scale Measurement Method Physical Exam General Appearance: Alert, Oriented X3, Cooperative, No Acute Distress Skin: ulcers about 1X1 inch on both legs dried ulcerated skin lesion on the epigastric area Sepsis Skin Exam (color): Normal for Ethnicity HEENT: Atraumatic, PERRLA, EOMI, Mucous Membr. moist/pink Neck: Supple Cardiovascular: Regular Rate, Normal S1, Normal S2 (left upper chest pacemaker) Lungs: Clear to Auscultation, Normal Air Movement Abdomen: Normal Bowel Sounds, Soft, No Tenderness (umbilical hernia, scar) Neurological: Normal Speech Extremities: 2+ lower limb edema, chronic erythema and multiple skin break down Vascular: Normal Pulses Current Medications: Current Medications Sig/Lexi Start time Last Medication Dose Route Stop Time Status Admin Acetaminophen 650 MG Q6P PRN 02/07 1500 AC PO Aspirin Buffered 81 MG DAILY 02/07 1257 AC 02/08 PO 0816 Atorvastatin Calcium 40 MG 1700 02/07 1700 AC 02/07 PO 1650 Cholecalciferol 1,000 IU DAILY 02/07 1257 AC 02/08 PO 0817 Furosemide 40 MG DAILY 02/08 1000 AC 02/08 IV 0817 Furosemide 0 .STK-MED ONE 02/07 1116 DC IV Heparin Sodium 5,000 UNIT Q8 02/07 1400 AC 02/08 (Porcine) SC 0545 Lisinopril 40 MG DAILY 02/07 1259 AC 02/08 PO 0817 Metoprolol Tartrate 50 MG BID 02/07 1258 AC 02/08 PO 0817 Morphine Sulfate 0.5 MG Q6P PRN 02/07 1515 AC IV Oxycodone HCl 5 MG Q6P PRN 02/07 1515 AC PO Last 24 Hrs of Lab/Burak Results Last 24 Hrs of Labs/Mics: Laboratory Tests 02/08/17 0600: Anion Gap 10, Estimated GFR 58 L, BUN/Creatinine Ratio 25.0, CBC w Diff NO MAN DIFF REQ, RBC 5.58, MCV 88.0, MCH 28.1, RDW 18.5 H, MPV 8.5, Gran % 67.8, Lymphocytes % 17.7 L, Monocytes % 9.2, Eosinophils % 4.8, Basophils % 0.5, Absolute Granulocytes 4.0, Absolute Lymphocytes 1.0 L, Absolute Monocytes 0.5, Absolute Eosinophils 0.3, Absolute Basophils 0, PUBS MCHC 32.0 L 02/07/17 1815: Urine Color YEL, Urine Clarity CLEAR, Urine pH 6.0, Ur Specific [place] 1.015, Urine Protein 100 H, Urine Ketones NEG, Urine Nitrite NEG, Urine Bilirubin NEG, Urine Urobilinogen 1.0, Ur Leukocyte Esterase NEG, Ur Microscopic SEDIMENT EXAMINED, Urine WBC RARE, Urine Hemoglobin NEG, Urine Glucose NEG 02/07/17 1455: Troponin I 0.02, [id number]-[id number] Pept 2810 H Orders EKG Findings: Ventricular paced, heart rate 62, left axis deviation, QTC 512 Radiology Findings: CXR Results Features consistent with mild CHF. Nonspecific right infrahilar masslike opacity is noted, not optimally characterized. Nonemergent follow-up contrast enhanced CT scan of the chest may be considered for further full detail evaluation, if clinically appropriate. 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 Patient was admitted on telemetry so for the management of the following problems: #1 Acute on chronic diastolic CHF #2 Bilateral Lower extremity erythema/skin breakdown, not infectious as no fever or increasing WBCs count #3 Recent pacemaker placement for bifascicular block #4 History of paroxysmal atrial fibrillation not on anticoagulation Plan: Vitals q Shift - Monitor I/O - Daily weight - Continue Lisinopril 40mg - Give Furosemide 40mg IV BID - Continue Metoprolol 50 mg PO Daily - ASA 81 mg Po daily. - holding off antibiotcs - elevate extremities -wound care consultation - CHF Diet Patient is full code Patient is on heparin subcutaneous for DVT prophylaxis Patient is on pain management Patient is on CHF diet As Ranked By This Provider Problem List: 1. CHF (congestive heart failure) 2. Pulmonary hypertension Problem List: 1. Atrial fibrillation 2. CHF (congestive heart failure) 3. Pulmonary hypertension Pain Ratin Pain Location: n/a Pain Goal: Remain pain free Pain Plan: Tylenol PRN Tomorrow's Labs & Rationales: BEP Patient is on Lasix DVT/Prophylaxis: pharmacological Consulting Request: Consulting Specialty: Cardiology
--- NOTE | 2017-02-08 11:08 | PN- Cardiology ---
Subjective Subjective: The patient is feeling better today. His edema has improved. He is not complaining of chest pain or shortness of breath. His enzymes are negative so far. He is in a paced rhythm on the monitor with no significant arrhythmias. BUN is 30, otherwise the electrolytes are normal. He is receiving IV Lasix once daily. Objective Vital Signs and I&Os Vital Signs Date Time Temp Pulse Resp B/P B/P Pulse O2 O2 Flow FiO2 Mean Ox Delivery Rate 02/08 0817 68 142/82 02/08 0817 68 142/82 02/08 0743 98.1 68 20 142/82 95 Nasal Cannula 02/08 0000 Nasal 2.0L Cannula 02/07 2200 98.0 62 20 138/88 99 Nasal 2.0L Cannula 02/07 2150 62 138/88 02/07 1447 98.8 60 20 128/72 95 Room Air 02/07 1424 Room Air Room Air 02/07 1333 77 192/100 02/07 1332 77 192/100 02/07 1304 98.3 77 20 192/100 95 Room Air 02/07 1156 97.0 94 18 189/92 95 Room Air Intake & Output 02/08 1600 02/08 0800 02/08 0000 02/07 1600 02/07 0800 02/07 0000 Intake Total 200 690 480 0 Output Total 500 1080 800 Balance -300 -390 -320 0 Intake, IV 0 0 Intake, Oral 200 690 480 0 Number 1 0 0 Bowel Movements Output, Urine 500 1080 800 Patient 206 lb 207 lb 210 lb Weight Weight Chair scale Chair scale Reported by Patient Measurement Method Physical Exam: He is in no distress HEENT exam is normal Chest is clear Heart reveals regular rhythm and no murmurs Abdomen is benign Extremities reveal 1+ edema with evidence of resolving edema. Current Medications: Current Medications Sig/Lexi Start time Last Medication Dose Route Stop Time Status Admin Acetaminophen 650 MG Q6P PRN 02/07 1500 AC PO Aspirin Buffered 81 MG DAILY 02/07 1257 AC 02/08 PO 0816 Atorvastatin Calcium 40 MG 1700 02/07 1700 AC 02/07 PO 1650 Cholecalciferol 1,000 IU DAILY 02/07 1257 AC 02/08 PO 0817 Furosemide 40 MG DAILY 02/08 1000 AC 02/08 IV 0817 Furosemide 0 .STK-MED ONE 02/07 1116 DC IV Heparin Sodium 5,000 UNIT Q8 02/07 1400 AC 02/08 (Porcine) ND 0545 Lisinopril 40 MG DAILY 02/07 1259 AC 02/08 PO 0817 Metoprolol Tartrate 50 MG BID 02/07 1258 AC 02/08 PO 0817 Morphine Sulfate 0.5 MG Q6P PRN 02/07 1515 AC IV Oxycodone HCl 5 MG Q6P PRN 02/07 1515 AC PO Results Last 48 Hrs of Labs/Mics: Laboratory Tests 02/08/17 0600: Anion Gap 10, Estimated GFR 58 L, BUN/Creatinine Ratio 25.0, CBC w Diff NO MAN DIFF REQ, RBC 5.58, MCV 88.0, MCH 28.1, RDW 18.5 H, MPV 8.5, Gran % 67.8, Lymphocytes % 17.7 L, Monocytes % 9.2, Eosinophils % 4.8, Basophils % 0.5, Absolute Granulocytes 4.0, Absolute Lymphocytes 1.0 L, Absolute Monocytes 0.5, Absolute Eosinophils 0.3, Absolute Basophils 0, PUBS MCHC 32.0 L 02/07/17 1815: Urine Color YEL, Urine Clarity CLEAR, Urine pH 6.0, Ur Specific [place] 1.015, Urine Protein 100 H, Urine Ketones NEG, Urine Nitrite NEG, Urine Bilirubin NEG, Urine Urobilinogen 1.0, Ur Leukocyte Esterase NEG, Ur Microscopic SEDIMENT EXAMINED, Urine WBC RARE, Urine Hemoglobin NEG, Urine Glucose NEG 02/07/17 1455: Troponin I 0.02, Few-D-Rssbeckdjpc Pept 2810 H 02/07/17 0748: Anion Gap 7, Estimated GFR 58 L, BUN/Creatinine Ratio 24.2, Glucose 93, Calcium 9.7, Total Bilirubin 1.2, AST 28, ALT 35, Alkaline Phosphatase 84, Troponin I 0.02, Total Protein 7.1, Albumin 4.2, Globulin 2.9, Albumin/Globulin Ratio 1.4, TSH 7.340 H, Free T4 1.14, CBC w Diff NO MAN DIFF REQ, RBC 5.45, MCV 87.6, MCH 27.8, RDW 18.6 H, MPV 8.4, Gran % 63.8, Lymphocytes % 22.0, Monocytes % 8.5, Eosinophils % 4.9, Basophils % 0.8, Absolute Granulocytes 4.2, Absolute Lymphocytes 1.5, Absolute Monocytes 0.6, Absolute Eosinophils 0.3, Absolute Basophils 0.1, PUBS MCHC 31.8 L Assessment/Plan Assessment/Plan The patient is improved with diuresis. There is no evidence of acute ischemia or arrhythmias. I recommend continuing on the same treatment for now. If he continues to improve he probably can be discharged fairly soon. Continue telemetry? Yes
--- NOTE | 2017-02-08 14:27 | PN- Att Addend ---
Attending MD Review Statement Attending Statement Attending MD Statement: examined this patient, discuss w/resident/PA/TRAFFIC ANALYST, agreed w/resident/PA/TRAFFIC ANALYST, reviewed EMR data (avail), discussed w/nursing Attending Assessment/Plan: Laboratory Tests 02/08/17 0600: Anion Gap 10, Estimated GFR 58 L, BUN/Creatinine Ratio 25.0, CBC w Diff NO MAN DIFF REQ, RBC 5.58, MCV 88.0, MCH 28.1, RDW 18.5 H, MPV 8.5, Gran % 67.8, Lymphocytes % 17.7 L, Monocytes % 9.2, Eosinophils % 4.8, Basophils % 0.5, Absolute Granulocytes 4.0, Absolute Lymphocytes 1.0 L, Absolute Monocytes 0.5, Absolute Eosinophils 0.3, Absolute Basophils 0, PUBS MCHC 32.0 L 02/07/17 1815: Urine Color YEL, Urine Clarity CLEAR, Urine pH 6.0, Ur Specific [place] 1.015, Urine Protein 100 H, Urine Ketones NEG, Urine Nitrite NEG, Urine Bilirubin NEG, Urine Urobilinogen 1.0, Ur Leukocyte Esterase NEG, Ur Microscopic SEDIMENT EXAMINED, Urine WBC RARE, Urine Hemoglobin NEG, Urine Glucose NEG 02/07/17 1455: Troponin I 0.02, Aez-N-Nlrvcwbulfx Pept 2810 H Vital Signs Date Time Temp Pulse Resp B/P B/P Pulse O2 O2 Flow FiO2 Mean Ox Delivery Rate 02/08 0817 68 142/82 02/08 0817 68 142/82 02/08 0743 98.1 68 20 142/82 95 Nasal Cannula 02/08 0000 Nasal 2.0L Cannula 02/07 2200 98.0 62 20 138/88 99 Nasal 2.0L Cannula 02/07 2150 62 138/88 02/07 1447 98.8 60 20 128/72 95 Room Air 86-Male with PMH significant for hypertension, hyperlipidemia, paroxysmal atrial flutter not on anticoagulation because of GI bleeding, history of congestive heart failure, colorectal cancer s/p surgery and radiation in 2012, oxygen dependent on 2 L only at nighttime came to emergency department for chief complaint of bilateral lower extremity swelling going on for few weeks. Pt noted worsening swelling in few weeks. No orthopnea, no sob , no exertional dyspnea, no claudication symptoms, no chest pain. Pt has h/o severe pulm htn . Subjective- feels better, sob better and leg swelling better Objective- LE swelling better, no crackles on lung exam. Abdomen- umblical area has a scabbed over area from prior surgery. Told patient to f/u with his surgeon as an outpatient after dc. Acute diastolic chf exacerbation in setting of severe pulm htn- cont on iv lasix 40mg daily. monitor on tele, strict I & O. cardiology consult appreciated, echo pending, good urine output since admission. Redness and swellilng b/l LE- does not look infected at present but will monitor closelly for signs of infection. swelling better. Labs reviewed are ok. His bp is better controlled today. High TSH but Normal FT4. d/w pt the care plan.
[2017-02-08 15:30] VITALS: BP 140/90
[2017-02-08 21:07] VITALS: BP 158/82
[2017-02-09 06:00] VITALS: BP 144/78
--- NOTE | 2017-02-09 07:49 | PN- Housestaff ---
Subjective Follow-up For: #1 Acute on chronic diastolic CHF #2 Bilateral Lower extremity erythema/skin breakdown #3 Recent pacemaker placement for bifascicular block #4 History of paroxysmal atrial fibrillation not on anticoagulation Complaints: pain scale (0-10) Tele-Events Since Last Visit: 62-69, single, no events Subjective: Patient was examined by me at bedside, patient looks comfortable. Review of Systems Constitutional: Reports: no symptoms. EENTM: Reports: no symptoms. Cardiovascular: Reports: no symptoms. Respiratory: Reports: no symptoms. Gastrointestinal: Reports: no symptoms. Genitourinary: Reports: no symptoms. Musculoskeletal: Reports: no symptoms. Skin: Reports: no symptoms. Neurological/Psychological: Reports: no symptoms. Hematologic/Endocrine: Reports: no symptoms. Immunologic/Allergic: Reports: no symptoms. Objective Last 24 Hrs of Vital Signs/I&O Vital Signs Date Time Temp Pulse Resp B/P B/P Pulse O2 O2 Flow FiO2 Mean Ox Delivery Rate 02/09 0753 68 144/78 02/09 0752 68 144/78 02/09 0600 98.0 68 20 144/78 96 / 2107 97.7 60 16 158/82 97 Room Air 02/08 2056 60 158/82 02/08 1530 97.5 73 20 140/90 93 Intake & Output 02/09 1600 /02 0800 02/09 0000 Intake Total 120 480 Output Total 500 500 Balance -380 -20 Intake, Oral 120 480 Output, Urine 500 500 Patient 205 lb Weight Weight Standing Scale Measurement Method Physical Exam General Appearance: Alert, Oriented X3, Cooperative, No Acute Distress Skin: No Rashes, No Breakdown, No Significant Lesion Sepsis Skin Exam (color): Normal for Ethnicity HEENT: Atraumatic, PERRLA, EOMI, Mucous Membr. moist/pink Neck: Supple Cardiovascular: Regular Rate, Normal S1, Normal S2, left upper chest pacemaker Lungs: Clear to Auscultation, Normal Air Movement Abdomen: Normal Bowel Sounds, Soft, No Tenderness Neurological: Normal Speech, Strength at 5/5 X4 Ext, Normal Tone, Cranial Nerves 3-12 NL Extremities: No Clubbing, No Cyanosis, No Edema, Normal Pulses, No Tenderness/ Swelling Vascular: Normal Pulses Current Medications: Current Medications Sig/Lexi Start time Last Medication Dose Route Stop Time Status Admin Acetaminophen 650 MG Q6P PRN 02/07 1500 AC PO Aspirin Buffered 81 MG DAILY 02/07 1257 AC 02/09 PO 0752 Atorvastatin Calcium 40 MG 1700 02/07 1700 AC 02/08 PO 1551 Cholecalciferol 1,000 IU DAILY 02/07 1257 AC 02/09 PO 0753 Furosemide 40 MG DAILY 02/08 1000 AC 02/09 IV 0759 Heparin Sodium 5,000 UNIT Q8 02/07 1400 AC 02/09 (Porcine) SC 0617 Lisinopril 40 MG DAILY 02/07 1259 AC 02/09 PO 0753 Metoprolol Tartrate 50 MG BID 02/07 1258 AC 02/09 PO 0752 Morphine Sulfate 0.5 MG Q6P PRN 02/07 1515 AC IV Oxycodone HCl 5 MG Q6P PRN 02/07 1515 AC PO Last 24 Hrs of Lab/Burak Results Last 24 Hrs of Labs/Mics: Laboratory Tests 02/09/17 0711: Anion Gap 5, Estimated GFR > 60, BUN/Creatinine Ratio 30.9 H Orders EKG Findings: Ventricular paced, heart rate 62, left axis deviation, QTC 512 Radiology Findings: CXR Results Features consistent with mild CHF. Nonspecific right infrahilar masslike opacity is noted, not optimally characterized. Nonemergent follow-up contrast enhanced CT scan of the chest may be considered for further full detail evaluation, if clinically appropriate. Assessment/Plan Assessment: Assessment: 86-year-old gentleman with a past medical history of congestive heart failure, hypertension, hyperlipidemia, paroxysmal atrial flutter not on anticoagulation because of GI bleeding, history of , colorectal cancer status post resection and radiotherapy in 2012, bifascicular block status post single lead pacemaker 2017 oxygen dependent on 2 L only at nighttime came to emergency department for chief complaint of bilateral lower extremity swelling. Patient was admitted on telemetry so for the management of the following problems: #1 Acute on chronic diastolic CHF #2 Bilateral Lower extremity erythema/skin breakdown, not infectious as no fever or increasing WBCs count #3 Recent pacemaker placement for bifascicular block #4 History of paroxysmal atrial fibrillation not on anticoagulation Plan: Vitals q Shift - Monitor I/O - Daily weight - Continue Lisinopril 40mg - Give Furosemide 40mg IV BID, on dischargging the patient ,Will add frusimide 20 mg tab in the evening - Continue Metoprolol 50 mg PO Daily - ASA 81 mg Po daily. - holding off antibiotcs - elevate extremities -wound care consultation - CHF Diet PATIENT WILL BE DISCHARGED TODAY LE swelling better, no crackles on lung exam. Abdomen- umblical area has a scabbed over area from prior surgery. Told patient to f/u with his surgeon as an outpatient after dc, PER ATTENDING RECOMMENDATION Patient is full code Patient is on heparin subcutaneous for DVT prophylaxis Patient is on pain management Patient is on CHF diet As Ranked By This Provider Problem List: 1. CHF (congestive heart failure) 2. Pulmonary hypertension Problem List: 1. CHF (congestive heart failure) 2. Pulmonary hypertension Pain Ratin Pain Location: N/A Pain Goal: Remain pain free Pain Plan: TYLENOL , MORPHINE AND OXYCODONE PRN Tomorrow's Labs & Rationales: PATIENT WILL BE DISCHARGED TODAY DVT/Prophylaxis: pharmacological Consulting Request: Consulting Specialty: Cardiology
[2017-02-09 07:53] VITALS: BP 144/78
[2017-02-09] MEDS ORDERED: LASIX20 M1 PO (09:37)
--- NOTE | 2017-02-09 09:40 | Patient Discharge Instructions ---
Discharge Instructions General Discharge Information You were seen/treated for: Acute on chronic diastolic CHF Special Instructions: 1. PLEASE TAKE 40 MG LASIX IN AM AND 20 MG IN PM. 2. PLEASE F/U WITH YOUR SOFTWARE DESIGN MANAGER WITHIN 1 WEEK OF DISCHARGE. 3. PLEASE F/U WITH YOUR PCP WITHIN 1 WEEK OF DISCHARGE. Diet Continue normal diet: No Recommended Diet: Heart Healthy Activity Full Activity/No Limits: Yes ( TOLERATED) Acute Coronary Syndrome Inclusion Criteria At DC or during hospital stay patient has or had the following: ACS DIAGNOSIS No Discharge Core Measures Meds if any: Prescribed or Continued at Discharge Meds if any: NOT Prescribed or Continued at Discharge Congestive Heart Failure Inclusion Criteria At DC or during hospital stay patient has or had the following: CHF DIAGNOSIS Yes Discharge Core Measures Meds if any: Prescribed or Continued at Discharge EDNA/ARB for EF <40% Yes Meds if any: NOT Prescribed or Continued at Discharge Cerebrovascular accident Inclusion Criteria At DC or during hospital stay patient has or had the following: CVA/TIA Diagnosis No Discharge Core Measures Meds if any: Prescribed or Continued at Discharge Meds if any: NOT Prescribed or Continued at Discharge Venous thromboembolism Inclusion Criteria VTE Diagnosis No VTE Type NONE VTE Confirmed by (Test) NONE Discharge Core Measures - Per Current guidelines, there needs to be overlap - treatment for the first 5 days of Warfarin therapy. - If discharged on Warfarin prior to 5 days of - overlap therapy, the patient will need to be - assessed for post discharge needs including - *Post discharge parental anticoagulation - *Warfarin and/or parental anticoagulation education - *Follow up date to check INR post discharge At least 5 days overlap therapy as Inpatient No Meds if any: Prescribed or Continued at Discharge Note: Overlap Therapy is Warfarin and Anticoagulant Meds if any: NOT Prescribed or Continued at Discharge
--- NOTE | 2017-02-09 11:38 | PN- Att Addend ---
Attending MD Review Statement Attending Statement Attending MD Statement: examined this patient, discuss w/resident/PA/DIRECTOR OF FUNDRAISING, agreed w/resident/PA/DIRECTOR OF FUNDRAISING, reviewed EMR data (avail), discussed w/nursing Attending Assessment/Plan: Laboratory Tests 02/09/17 0711: Anion Gap 5, Estimated GFR > 60, BUN/Creatinine Ratio 30.9 H Vital Signs Date Time Temp Pulse Resp B/P B/P Pulse O2 O2 Flow FiO2 Mean Ox Delivery Rate 02/09 0753 68 144/78 02/09 0752 68 144/78 02/09 0600 98.0 68 20 144/78 96 02/08 2107 97.7 60 16 158/82 97 Room Air 02/08 2056 60 158/82 02/08 1530 97.5 73 20 140/90 93 86-Male with PMH significant for hypertension, hyperlipidemia, paroxysmal atrial flutter not on anticoagulation because of GI bleeding, history of congestive heart failure, colorectal cancer s/p surgery and radiation in 2012, oxygen dependent on 2 L only at nighttime came to emergency department for chief complaint of bilateral lower extremity swelling going on for few weeks. Pt noted worsening swelling in few weeks. No orthopnea, no sob , no exertional dyspnea, no claudication symptoms, no chest pain. Pt has h/o severe pulm htn . Subjective- feels better, sob better and leg swelling better Objective- LE swelling better, no crackles on lung exam. Abdomen- umblical area has a scabbed over area from prior surgery. Told patient to f/u with his surgeon as an outpatient after dc. Acute diastolic chf exacerbation in setting of severe pulm htn- feels much better, will dc home on po lasix 40mg in am and 20mg in afternoon. d/w pt the care plan.
--- NOTE | 2017-02-09 15:18 | Discharge Summary ---
Visit Information Visit Dates Admission Date: 02/07/17 Discharge Date: 02/09/17 Hospital Course Course Attending Physician: STEPHANIA SHAH,SUSAN Almanza Primary Care Physician: LILIA SHAH,JUNIOR Garrison Consulting Request: Consulting Specialty: Cardiology Hospital Course: #1 Acute on chronic diastolic CHF: his echo revealed Left ventricular ejection fraction is estimated at > 55 %. Mild to moderate right ventricular dilatation. Mildly reduced right ventricular global systolic function. Vitals q Shift, Monitor I/O, Daily weight , Lisinopril 40mg, Furosemide 40mg IV BID, on discharge frusimide 20 mg tab in the evening was added, Metoprolol 50 mg PO Daily, ASA 81 mg Po daily, CHF diet #2 Bilateral Lower extremity erythema/skin breakdown which was suspected to be due to cellulitis , but he had no fever , and his WBCs were normal , he was advised to elevate extremities, wound care consultation was done which agreed on the same regimen Allergies: Coded Allergies: NO KNOWN ALLERGIES (12/18/15) Pertinent Lab Results: Laboratory Tests 02/09 0711 Chemistry Sodium (137 - 145 mmol/L) 139 Potassium (3.5 - 5.1 mmol/L) 3.9 Chloride (98 - 107 mmol/L) 101 Carbon Dioxide (22 - 30 mmol/L) 33 H Anion Gap (5 - 16) 5 BUN (9 - 20 mg/dL) 34 H Creatinine (0.7 - 1.2 mg/dL) 1.1 Estimated GFR (>60 ml/min) > 60 BUN/Creatinine Ratio (7 - 25 %) 30.9 H Disposition Summary Disposition Principal Diagnosis: #1 Acute on chronic diastolic CHF #2 Bilateral Lower extremity erythema/skin breakdown #3 Recent pacemaker placement for bifascicular block #4 History of paroxysmal atrial fibrillation not on anticoagulation Additional Diagnosis: 1. Recent pacemaker placement for bifascicular block4 2. History of paroxysmal atrial fibrillation not on anticoagulation Discharge Disposition: home or self care Discharge Instructions General Discharge Information Code Status: Full Code Patient's Diet: Heart Healthy Patient's Activity: FULL ACTIVITY / NO LIMITATION Follow-Up Instructions/Appts: 1. PLEASE TAKE 40 MG LASIX IN AM AND 20 MG IN PM. 2. PLEASE F/U WITH YOUR HEAT SET OPERATOR WITHIN 1 WEEK OF DISCHARGE. 3. PLEASE F/U WITH YOUR PCP WITHIN 1 WEEK OF DISCHARGE. Medications at Discharge Discharge Medications: Continue taking these medications: Metoprolol Tartrate (Metoprolol Tartrate) 50 MG TABLET 1 Tablet ORAL TWICE DAILY Comments: Last Taken: 02/09/17 Time: 08AM Rosuvastatin Calcium (Crestor) 10 MG TABLET 1 Tablet ORAL As Directed Comments: Last Taken: 02/08/17 Time: 5PM Benazepril HCl (Benazepril HCl) 40 MG TABLET 1 Tablet ORAL DAILY Qty = 30 Comments: Last Taken: 02/09/17 Time: 08AM GIVEN LISINOPRIL IN HOSPITAL Cholecalciferol (Vitamin D3) (Vitamin D) 1,000 UNIT TABLET 1 Tablet ORAL DAILY Comments: Last Taken: 02/09/17 Time: 08AM Aspirin (Ecotrin*) 81 MG TABLET.DR 1 Tablet ORAL DAILY Comments: NOT GIVEN AT HOSPITAL Furosemide (Furosemide) 40 MG TABLET 1 Tablet ORAL Every Morning Qty = 30 Comments: Last Taken: 02/09/17 Time: 08 AM GIVEN IV IN HOSPITAL Start taking the following new medications: Furosemide (Lasix) 20 MG TABLET 1 Tablet ORAL Every night Qty = 30 No Refills Copies To: KENDALL SHAH,TERRY Lares; STEPHANIA SHAH,SUSAN Almanza; HYACINTH LUCAS DO ([facility]); TRACY SHAH ,[facility]; INDRA SHAH,LOPEZ Carranza Attending MD Review Statement Documenting Attending: SUSAN CAT MD Other Findings: Agree with the above discharge plan. See my separate attending note for more details.
--- NOTE | 2017-02-10 09:24 | ECHOCARDIOGRAM REPORT ---
MARLENY LORA Age: 86 : 1930 Gender: M Exam Date: 02/09/2017 08:22 Exam Location: 1 [facility] Ht (in): 72 Wt (lb): 205 BSA: 2.19 BP: 144 / 78 Ordering Physician: DAVID SOLORIO MD Referring Physician: Jm Jean M.D. Technologist: Joselyn Landa DARRIN Room Number: 172 Indications: CARDIOMYOPATHY Rhythm: Technical Quality: Technically difficult study FINDINGS Left Ventricle Normal global left ventricular size, wall thickness, systolic function with no obvious regional wall motion abnormalities. Left ventricular ejection fraction is estimated at > 55 %. Right Ventricle Mild to moderate right ventricular dilatation. Mildly reduced right ventricular global systolic function. Catheter/pacemaker wire in the right ventricular cavity. Right Atrium Mild right atrial dilatation. Left Atrium Mild left atrial dilatation. Mitral Valve Mild mitral annular calcification. No mitral stenosis. Trace to mild mitral regurgitation. Aortic Valve Trileaflet aortic valve. Aortic sclerosis. Tricuspid Valve Structurally normal tricuspid valve. Sgjtjecy-[id number]-sununj tricuspid regurgitation. Severe pulmonary hypertension. Right ventricular systolic pressure estimated to be elevated at > 100 mmHg. Pulmonic Valve Pulmonic valve not well visualized, grossly normal. Pericardium No pericardial effusion. Great Vessels Normal size aortic root. CONCLUSIONS Technically difficult study. Normal global left ventricular size, wall thickness, systolic function with no obvious regional wall motion abnormalities. Left ventricular ejection fraction is estimated at > 55 %. Mild to moderate right ventricular dilatation. Mildly reduced right ventricular global systolic function. Catheter/pacemaker wire in the right ventricular cavity. Mild right atrial dilatation. Mild left atrial dilatation. Hcnfkjjf-ia-xxlirt tricuspid regurgitation. Severe pulmonary hypertension. Right ventricular systolic pressure estimated to be elevated at > 100 mmHg. Jm Jean M.D. (Electronically Signed) Final Date: 10 February 2017 09:24 MEASUREMENTS (Male / Female) Normal Values 2D ECHO LV Diastolic Diameter PLAX 3.8 cm 4.2 - 5.9 / 3.9 - 5.3 cm LV Systolic Diameter PLAX 2.3 cm 2.1 - 4.0 cm LV Fractional Shortening PLAX 39.5 % 25 - 46 % LV Ejection Fraction 2D Teich 70.8 % IVS Diastolic Thickness 0.8 cm LVPW Diastolic Thickness 1.0 cm LV Relative Wall Thickness 0.5 RV Internal Dim ED PLAX 3.3 cm 1.9 - 3.8 cm LVOT Diameter 2.4 cm Aortic Root Diameter 3.5 cm LA Systolic Diameter LX 3.9 cm 3.0 - 4.0 / 2.7 - 3.8 cm Ascending Aorta Diameter 3.4 cm DOPPLER AV Peak Velocity 168.0 cm/s AV Peak Gradient 11.3 mmHg AV Mean Velocity 128.0 cm/s AV Mean Gradient 7.0 mmHg AV Velocity Time Integral 35.7 cm LVOT Peak Velocity 98.5 cm/s LVOT Peak Gradient 3.9 mmHg LVOT Mean Velocity 70.8 cm/s LVOT Mean Gradient 2.0 mmHg LVOT Velocity Time Integral 20.9 cm LVOT Stroke Volume 94.5 cm AV Area Cont Eq vti 2.6 cm AV Area Cont Eq pk 2.7 cm MV Peak Velocity 123.0 cm/s MV Peak Gradient 6.1 mmHg MV Mean Velocity 59.1 cm/s MV Mean Gradient 2.0 mmHg Mitral E Point Velocity 103.4 cm/s Mitral A Point Velocity 81.9 cm/s Mitral E to A Ratio 1.3 MV PHT Velocity 127.0 cm/s MV Deceleration [place] 850.0 cm/s MV Pressure Half Time 44.8 ms MV Area PHT 4.9 cm MV Deceleration Time 137.5 ms TR Peak Velocity 532.0 cm/s TR Peak Gradient 113.2 mmHg Right Atrial Pressure 5.0 mmHg Pulmonary Artery Systolic Pressu 118.2 mmHg Right Ventricular Systolic Press 118.2 mmHg PV Peak Velocity 138.0 cm/s PV Peak Gradient 7.6 mmHg PV Mean Velocity 86.6 cm/s PV Mean Gradient 4.0 mmHg PV Velocity Time Integral 27.2 cm LV E' Lateral Velocity 5.6 cm/s Mitral E to LV E' Lateral Ratio 18.6 LV E' Septal Velocity 5.5 cm/s Mitral E to LV E' Septal Ratio 18.9
== END 2017-02-09 12:00 | DRG 292 ==
LOC: ERH 07:10 → ERHI 11:17 → 1NO 11:17 → ENRESERV 11:40 → ENTRNSPT 12:00 → 1NO 12:37 → CMPTRNSPT 12:57 → 1NO 02-08 10:28 → ENPENDDIS 02-09 10:05 → 1NO 02-09 12:00
PROVIDERS: Emergency Medicine; Student in an Organized Health Care Education/Training Program; ADMIT Internal Medicine
DX: I11.0 Hypertensive heart disease with heart failure (principal); I45.2 Bifascicular block; I27.2 Other secondary pulmonary hypertension; I48.92 Unspecified atrial flutter; I50.33 Acute on chronic diastolic (congestive) heart failure; Z95.0 Presence of cardiac pacemaker; I48.0 Paroxysmal atrial fibrillation; L53.9 Erythematous condition, unspecified; E78.5 Hyperlipidemia, unspecified; Z85.038 Personal history of other malignant neoplasm of large intestine; Z90.49 Acquired absence of other specified parts of digestive tract; R32 Unspecified urinary incontinence
CPT/HCPCS: 1NP; 36415; 81001; 82436; 93005; 93010; 93306; 93970; 96374; J1644; J1940

== ENCOUNTER 2017-11-06 17:19 | Inpatient (IN) | payer OTHER ==
[~2017-11-06] VITALS: Ht 182.9 cm; Wt 96.8 kg
[~2017-11-06 17:19] MED LIST changes: +FUROSEMIDE40 M1 PO; +LASIX20 M1 PO
--- NOTE | 2017-11-06 18:20 | ED GENERAL ADULT ---
See Addendum History of Present Illness General Chief Complaint: General Adult Stated Complaint: WEAKNESS X6 HOURS UNABLE TO STAND Source: patient Exam Limitations: no limitations Vital Signs & Intake/Output Vital Signs & Intake/Output Vital Signs Date Time Temp Pulse Resp B/P B/P Pulse O2 O2 Flow FiO2 Mean Ox Delivery Rate 11/07 2011 96 24 133/66 92 Room Air 3.5L 11/07 1935 92 Nasal 3.5L Cannula 11/06 1934 97.8 98 24 115/74 92 Nasal 3.5L Cannula 11/06 1807 92 24 100/62 96 11/06 1800 91 Nasal 4.5L Cannula 11/06 1800 96.2 96 24 98/66 91 Nasal 4.5L Cannula Allergies Coded Allergies: NO KNOWN ALLERGIES (12/18/15) Reconcile Medications Aspirin (Ecotrin*) 81 MG TABLET.DR 1 TAB PO DAILY HEART HEALTH (Reported) Benazepril HCl 40 MG TABLET 1 TAB PO DAILY BP (Reported) Cholecalciferol (Vitamin D3) (Vitamin D) 1,000 UNIT TABLET 1 TAB PO DAILY SUPPLEMENT (Reported) Furosemide 40 MG TABLET 1 TAB PO QAM WATER RETENTION (Reported) Furosemide (Lasix) 20 MG TABLET 1 TAB PO QPM LEG EDEMA Metoprolol Tartrate 50 MG TABLET 1 TAB PO BID B/P (Reported) Rosuvastatin Calcium (Crestor) 10 MG TABLET 1 TAB PO AD CHOLESTEROL (Reported ) Triage Note: PT PRESENTS TO THE ER C/O WEAKNESS X1 YEAR. PER PT THIS LAST WEEK HE IS MORE WEAK THAN EVER. PT O2 SAT 77%RA HR 111 PT BROUGHT TO ROOM 6 IRWIN MACARIO AT BEDSIDE Triage Nurses Notes Reviewed? yes Onset: Abrupt Duration: week(s):, constant, continues in ED Timing: recent history Injury Environment: home No Modifying Factors: none HPI: 87-year-old male comes into the emergency room for further evaluation of inability to walk. Patient has been increasingly weak. He reports that he has not felt well for a year but has felt worse over the past week he is unsure if any of his past medical history. He currently denies any fever chest pain shortness of breath abdominal pain. He was brought into a room immediately because his oxygen saturation was in the 60s in triage. (Edis Tijerina) Past History Travel History Traveled to [place] past 21 day No Medical History Any Pertinent Medical History? 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 No (Edis Tijerina) Review of Systems Review of Systems Constitutional: Reports: see HPI. EENTM: Reports: no symptoms. Respiratory: Reports: see HPI. Cardiovascular: Reports: no symptoms. GI: Reports: no symptoms. Genitourinary: Reports: no symptoms. Musculoskeletal: Reports: no symptoms. Skin: Reports: no symptoms. Neurological/Psychological: Reports: no symptoms. Hematologic/Endocrine: Reports: no symptoms. Immunologic/Allergic: Reports: no symptoms. All Other Systems: Reviewed and Negative (Edis Tijerina) Physical Exam Physical Exam General Appearance: alert, awake, mild distress Head: atraumatic, normal appearance Eyes: Bilateral: normal appearance. Ears, Nose, Throat: normal ENT inspection, hearing grossly normal Neck: normal inspection Respiratory: no respiratory distress, decreased breath sounds Cardiovascular: regular rate/rhythm Gastrointestinal: soft Extremities: normal inspection Neurologic/Psych: awake, alert, oriented x 3 Skin: intact Core Measures ACS in differential dx? Yes CVA/TIA Diagnosis: No Sepsis Present: No Sepsis Focused Exam Completed? No (Edis Tijerina) Progress Differential Diagnoses I considered the following diagnoses in my evaluation of the patient: Pneumonia , COPD, UTI, sepsis, PE, RI, chf, renal failure, electrolyte imblance Plan of Care: Orders Procedure Date/time Status LACTIC ACID 11/06 2036 Active Patient Data 11/06 2005 Active Admit to inpatient 11/07 1951 Active Add-on Test (ER Only) 11/06 1924 Active B-TYPE NATRIURETIC PEP (BNP) 11/06 1834 Complete ARTERIAL BLOOD GAS (GEN) 11/06 175 Active BLOOD CULTURE 11/06 174 Active MISTAKE 11/06 1736 Active RAPID VIRAL INFLUENZA A 11/06 1736 Active URINALYSIS 11/06 1736 Complete TROPONIN LEVEL 11/06 1736 Complete LACTIC ACID 11/06 1736 Complete COMPREHENSIVE METABOLIC PANEL 11/06 1736 Complete CBC WITHOUT DIFFERENTIAL 11/06 1736 Complete EKG 11/06 1736 Active Laboratory Tests 11/06/17 1914: Urinalysis MOD H, Urine Color YEL, Urine Clarity CLDY H, Urine pH 5.5, Ur Specific [place] 1.025, Urine Protein 100 H, Urine Ketones NEG, Urine Nitrite NEG, Urine Bilirubin NEG, Urine Urobilinogen 1.0, Ur Leukocyte Esterase TRACE H , Ur Microscopic SEDIMENT EXAMINED, Urine RBC 3-5, Urine WBC 10-15 H, Ur Epithelial Cells FEW, Urine Bacteria FEW H, Hyaline Casts 5-10 H, Granular Casts 3-5 H, Urine Mucus MOD H, Urine Hemoglobin SMALL H, Urine Glucose NEG, Urine Comment F 11/06/171834: Anion Gap 14, Estimated GFR 17 L, BUN/Creatinine Ratio 33.4 H, Glucose 86, Lactic Acid 2.5 H, Calcium 9.8, Total Bilirubin 1.7 H, AST 36, ALT 44, Alkaline Phosphatase 121, Troponin I 0.71 *H, Vmt-B-Ghcvltwaytq Pept 09903 H, Total Protein 6.9, Albumin 3.3 L, Globulin 3.6, Albumin/Globulin Ratio 0.9 L, CBC w Diff MAN DIFF ORDERED, RBC 5.78, MCV 92.9, MCH 29.5, MCHC 31.8 L, RDW 17.4 H, MPV 9.5, Gran % 88.5 H, Lymphocytes % 3.6 L, Monocytes % 7.4, Eosinophils % 0.3, Basophils % 0.2, Absolute Granulocytes 10.4 H, Segmented Neutrophils 82 H, Band Neutrophils 3, Absolute Lymphocytes 0.4 L, Lymphocytes 5 L, Monocytes 8, Absolute Monocytes 0.9 H, Eosinophils 2, Absolute Eosinophils 0, Absolute Basophils 0, Platelet Estimate ADEQUATE, Normocytic RBCs VERIFIED, Normochromic RBCs VERIFIED 11/06/17 1800: pH 7.34 L, pCO2 38, pO2 68 L, HCO3 21, ABG O2 Sat (Measured) 91.0 L, P-50 ( Temp Corrected) Y, Carboxyhemoglobin 1.7, O2 Concentration % 4.5L, Temperature 96.2 L, O2 Delivery Method NC, Phlebotomy Draw Site RIGHT RADIAL Microbiology 11/06 1906 BLOOD: Blood Culture - RECD 11/06 1834 BLOOD: Blood Culture - RECD 11/06 1737 NASOPHARYN: Influenza Virus A & B Rapid Smear - ORD Diagnostic Imaging: Viewed by Me: Radiology Read. Discussed w/RAD: Radiology Read. Radiology Impression: PATIENT: MARLENY LORA PRESENT AGE: 87 PATIENT ACCOUNT NO: [id number] : 32 LOCATION: [facility] ORDERING PHYSICIAN: Edis GAYLE SERVICE DATE: 11/06/17 EXAM TYPE: RAD - XRY-PORTABLE CHEST XRAY EXAMINATION: XR PORTABLE CHEST CLINICAL INFORMATION: Hypoxia COMPARISON: 02/07/2017 TECHNIQUE: Portable frontal view of the chest was obtained. FINDINGS: Changes of mild CHF. Size remains enlarged. Single lead pacer intact and unchanged. Limited imaging. No ectopic air grossly. IMPRESSION: CHF as above. DICTATED BY: Arturo Serrano MD DATE/TIME DICTATED:11/06/171911 CERTIFIED DIALYSIS TECHNICIAN:NORBERT DATE/TIME TRANSCRIBED:11/06/171911 CONFIDENTIAL, DO NOT COPY WITHOUT APPROPRIATE AUTHORIZATION. <Electronically signed in Other Vendor System> SIGNED BY: Arturo Serrano MD 11/06/171915 Initial ED EKG: normal sinus rhythm, rate (97), RBBB (Edis Tijerina) Departure Departure Disposition: STILL A PATIENT Condition: Stable Clinical Impression Primary Impression: Acute exacerbation of CHF (congestive heart failure) Secondary Impressions: Acute kidney injury, Hypoxia, Troponin level elevated Referrals: Mendez Anand MD (PCP/Family) Departure Forms: Customer Survey General Discharge Information Admission Note Spoke With: Lane Lazaro MD Documentation of Exam: Documentation of any treatments & extenuating circumstances including Concerns Regarding Discharge (functional status, medication knowledge or non-compliance, living conditions, etc.) that warrant an admission rather than observation: Patient will require supplemental oxygen. A cardiac consultation. Gentle IV hydration. IV diuresis. Repeat troponins. Repeat EKGs. Echocardiogram. High risk. Medically not safe for discharge. Physical therapy consultation. Patient's oxygen saturation was in the 60s initially. cardiology paged. (Edis Tijerina) PA/ENGROSSER Co-Sign Statement Statement: ED Attending supervision documentation- [X] I saw and evaluated the patient. I have also reviewed all the pertinent lab results and diagnostic results. I agree with the findings and the plan of care as documented in the PA's/ENGROSSER's documentation. [X] I have reviewed the ED Record and agree with the PA's/ENGROSSER's documentation. [] Additions or exceptions (if any) to the PAs/ENGROSSER's note and plan are summarized below: [Patient comes in for profound weakness and anorexia. Patient found to be in acute renal failure as well as congestive heart failure. Patient's troponin is slightly elevated. His EKG shows no change from his prior. Patient will be admitted to the ICU, renal consultation, cardiology consultation, diuresis] (Pearl SHAH,J Carlos Andrea) Critical Care Note Critical Care Note Critical Care Time: 30-74 min (35) (Edis Tijerina) (Pearl SHAH,J Carlos Andrea) Critical Care Note Critical Care Note Critical Care Time: 30-74 min (35) (Edis Tijerina)
[2017-11-06 19:02] LABS: ABSOLUTE BASOPHIL COUNT 0 /CUMM (0.0-0.2); ABSOLUTE EOSINOPHIL COUNT 0 /CUMM (0.0-0.7); ABSOLUTE GRANULOCYTE CT 10.4 /CUMM (1.4-6.5); ABSOLUTE LYMPH COUNT 0.4 /CUMM (1.2-3.4); ABSOLUTE MONOCYTE COUNT 0.9 /CUMM (0.10-0.60); BASOPHIL % 0.2 % (0.0-2.0); EOSINOPHIL % 0.3 % (0-5); GRANULOCYTE % 88.5 % (42.2-75.2); HEMATOCRIT 53.8 % (42-52); MEAN CORPUSCULAR HGB 29.5 PG (27.0-31.0); MEAN CORPUSCULAR HGB CONC 31.8 G/DL (33.0-37.0); MEAN CORPUSCULAR VOLUME 92.9 FL (80.0-94.0); MEAN PLATELET VOLUME 9.5 FL (7.4-10.4); PLATELET COUNT 132 /CUMM (130-400); RBC DISTRIBUTION WIDTH 17.4 % (11.5-14.5); RED BLOOD CELL CT 5.78 /CUMM (4.70-6.10); WHITE BLOOD CELL COUNT 11.7 /CUMM (4.8-10.8)
--- NOTE | 2017-11-06 19:16 | RADIOLOGY REPORT ---
EXAMINATION: XR PORTABLE CHEST CLINICAL INFORMATION: Hypoxia COMPARISON: 02/07/2017 TECHNIQUE: Portable frontal view of the chest was obtained. FINDINGS: Changes of mild CHF. Size remains enlarged. Single lead pacer intact and unchanged. Limited imaging. No ectopic air grossly. IMPRESSION: CHF as above.
--- NOTE | 2017-11-06 20:07 | History & Physical ---
Emigdio SHAH,Anshu 11/06/17 2006: General Information and HPI MD Statement: I have seen and personally examined MARLENY LORA and documented this H&P. The patient is a 87 year old M who presented with a patient stated chief complaint of [WEAKNESS, SHORTNESS OF BREATH]. 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 According to the patient himself, in the past year he has been feeling weak, and occasional shortness of breath for which she takes 20 mg of Lasix in addition to 40 mg of daily Lasix orally. Since the past 4 days, he has been feeling progressively weak normally using a cane this week uses walker, and shortness of breath to the point that he had to come to the ED. He also endorses chronic leg swelling, but could not make a difference on recent change in leg size. He denies any chest pain, palpitation, dizziness, orthopnea, PND, fever, chills, nausea, vomiting. He mentioned that he has been very compliant with his medications, food habits, avoiding salt, canned food or food outside, and does not have any changes in his medications recently, or sick contacts, or prolonged travel recently. He has a chronic dry cough which he attributes to Benazepril which he continues to take. Of note, he mentions that he takes oxygen 2 L/m every night, and has been using longer hours of oxygen this week although we do not have any records why he takes oxygen for. (Need medical records) Allergies/Medications Allergies: Coded Allergies: NO KNOWN ALLERGIES (12/18/15) Home Med list Aspirin (Ecotrin*) 81 MG TABLET.DR 1 TAB PO DAILY HEART HEALTH (Reported) Benazepril HCl 40 MG TABLET 1 TAB PO DAILY BP (Reported) Cholecalciferol (Vitamin D3) (Vitamin D) 1,000 UNIT TABLET 1 TAB PO DAILY SUPPLEMENT (Reported) Furosemide 40 MG TABLET 1 TAB PO QAM WATER RETENTION (Reported) Furosemide (Lasix) 20 MG TABLET 1 TAB PO QPM LEG EDEMA Metoprolol Tartrate 50 MG TABLET 1 TAB PO BID B/P (Reported) Rosuvastatin Calcium (Crestor) 10 MG TABLET 1 TAB PO QPM CHOLESTEROL ( Reported) Compliance With Home Meds: GOOD Past History Travel History Traveled to [place] past 21 day No Medical History Neurological: NONE EENT: NONE Cardiovascular: CHF, hypertension, hyperlipidemia, paroxysmal atrial flutter, not on anticoagulation due to GI bleed risk LCW PACER Respiratory: NONE Gastrointestinal: lower GI bleed, 2/2 XARELTO Hepatic: CHOLECYSTECTOMY Renal: urinary incontinence Musculoskeletal: NONE Psychiatric: NONE Endocrine: NONE Blood Disorders: NONE Cancer(s): colon/rectal cancer 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 Home Who Do You Live With? spouse, child Services at Home: None Primary Language: Setswana Smoking Status: Former Smoker ETOH Use: occasional use (last drink whiskey 1 week ago) Illicit Drug Use: denies illicit drug use Living Will? yes Functional Ability ADLs Independent: dressing, eating, toileting, bathing. Ambulation: cane IADLs Independent: shopping, housework, finances, food prep, telephone. Needs Assist: transportation, medication admin. 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 Denies: chills, diaphoresis, fever, unexplained weight loss. EENTM: Reports: no symptoms. Cardiovascular: Reports: edema (chronic pedal edema), peripheral edema. Denies: chest pain, orthopena, palpitations, syncope. Respiratory: Reports: cough (dry cough, chronic), short of breath. Denies: orthopnea, sputum production, stridor, wheezing. GI: Reports: no symptoms. Genitourinary: Reports: no symptoms. Musculoskeletal: Reports: no symptoms. Skin: Reports: no symptoms. Neurological/Psychological: Reports: no symptoms. Hematologic/Endocrine: Reports: no symptoms. All Other Systems: Reviewed and Negative Exam & Diagnostic Data Last 24 Hrs of Vital Signs/I&O Vital Signs Date Time Temp Pulse Resp B/P B/P Pulse O2 O2 Flow FiO2 Mean Ox Delivery Rate 11/07 1935 92 Nasal 3.5L Cannula 11/06 1934 97.8 98 24 115/74 92 Nasal 3.5L Cannula 11/06 1807 92 24 100/62 96 11/06 1800 91 Nasal 4.5L Cannula 11/06 1800 96.2 96 24 98/66 91 Nasal 4.5L Cannula Physical Exam General Appearance Alert, Oriented X3, Cooperative, No Acute Distress, on nasal canula Skin No Rashes, No Breakdown, No Significant Lesion Skin Temp/Moisture Exam: Warm/Dry Sepsis Skin Exam (color): Normal for Ethnicity HEENT Atraumatic, PERRLA, EOMI, Mucous Membr. moist/pink Neck Supple, JVD present Lymphatic Cervical nl Cardiovascular Regular Rate, loud S2, no murmur appreciated by me today Lungs anteriorly b/l decreased breath sound but no wheeze/crackles, posteriorly b/l crackles from base to apex Abdomen Normal Bowel Sounds, Soft, No Tenderness, distension, chronic, congenital umbilical hernia present Neurological Normal Speech, Strength at 5/5 X4 Ext, Normal Tone, Sensation Intact, Cranial Nerves 3-12 NL, Reflexes 2+, grossly intact Extremities No Clubbing, No Cyanosis, Normal Pulses, b/l pitting pedal edema, L> R chronic erythema, L>R warm to touch, but patient endorses as chronic Vascular Normal Pulses, Pulses Symmetrical Sepsis Peripheral Pulse Location: Radial Sepsis Peripheral Pulse Exam: Normal Sepsis Cap Refill Exam: <2 Sec Rectal Guiac Negative Last 24 Hrs of Labs/Burak: Laboratory Tests 11/06/171913: Urinalysis MOD H, Urine Color YEL, Urine Clarity CLDY H, Urine pH 5.5, Ur Specific Mineral 1.025, Urine Protein 100 H, Urine Ketones NEG, Urine Nitrite NEG, Urine Bilirubin NEG, Urine Urobilinogen 1.0, Ur Leukocyte Esterase TRACE H , Ur Microscopic SEDIMENT EXAMINED, Urine RBC 3-5, Urine WBC 10-15 H, Ur Epithelial Cells FEW, Urine Bacteria FEW H, Hyaline Casts 5-10 H, Granular Casts 3-5 H, Urine Mucus MOD H, Urine Hemoglobin SMALL H, Urine Glucose NEG, Urine Comment F 03/29/18 1835: Anion Gap 14, Estimated GFR 17 L, BUN/Creatinine Ratio 33.4 H, Glucose 86, Lactic Acid 2.5 H, Calcium 9.8, Total Bilirubin 1.7 H, AST 36, ALT 44, Alkaline Phosphatase 121, Troponin I 0.71 *H, Pcr-[id number] Pept Pending, Total Protein 6.9, Albumin 3.3 L, Globulin 3.6, Albumin/Globulin Ratio 0.9 L, CBC w Diff MAN DIFF ORDERED, RBC 5.78, MCV 92.9, MCH 29.5, MCHC 31.8 L, RDW 17.4 H, MPV 9.5, Gran % 88.5 H, Lymphocytes % 3.6 L, Monocytes % 7.4, Eosinophils % 0.3, Basophils % 0.2, Absolute Granulocytes 10.4 H, Segmented Neutrophils 82 H, Band Neutrophils 3, Absolute Lymphocytes 0.4 L, Lymphocytes 5 L, Monocytes 8, Absolute Monocytes 0.9 H, Eosinophils 2, Absolute Eosinophils 0, Absolute Basophils 0, Platelet Estimate ADEQUATE, Normocytic RBCs VERIFIED, Normochromic RBCs VERIFIED 11/06/17 1800: pH 7.34 L, pCO2 38, pO2 68 L, HCO3 21, ABG O2 Sat (Measured) 91.0 L, P-50 ( Temp Corrected) Y, Carboxyhemoglobin 1.7, O2 Concentration % 4.5L, Temperature 96.2 L, O2 Delivery Method NC, Phlebotomy Draw Site RIGHT RADIAL Microbiology 11/06 1906 BLOOD: Blood Culture - RECD 11/06 1834 BLOOD: Blood Culture - RECD 11/06 1737 NASOPHARYN: Influenza Virus A & B Rapid Smear - ORD Diagnostic Data EKG Results Patient has EKG showing rate of 97, with P waves occurring regularly, dissociated with the wide (122) QRS, WI 296, QTC 534, and right bundle branch block, without ST-T changes. This was compared with the one done on 02/07/[address] Posey. CXR Results Chest x-ray was personally reviewed by me which shows acute congestive heart failure impression. Pacemaker in place, and pacemaker wire tip seems to be in the area representing right ventricle. 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 Initially when the patient presented to the ED, his vitals were unstable with temperature 96.2, respiration 24, blood pressure 98/66, pulse 96, oxygen saturation dropping low to 60s according to ED staff, and required 4.5L/min O2 via NC. He also received 40 mg IV Lasix, aspirin 325 mg and IV heparin was started in the ED after getting a guaiac-negative rectal examination (done by me ). Given the clinical presentation, lab values and imaging as mentioned above, patient was deemed serious enough to be considered for ICU admission for the management of following issues: # Acute hypoxic respiratory failure, secondary to acute exacerbation of congestive heart failure systolic and diastolic Given patient's history of right-sided failure with right ventricular systolic pressure more than 100, and the clinical picture of congested lungs corroborated by the chest x-ray, he seems to be in acute congestive heart failure as mentioned above. After receiving 40 mg of IV Lasix, his symptoms seem to be improving, including subjectively. * ICU admission * Monitor vitals regularly with strict intake and output records * Monitor weight daily * IV Lasix 40 mg already given in the ED, would wait for next creatinine to come back to guide further therapy * Cardiology consulted, discussed over phone, agreed to the proposed plan, will see the patient in the morning, we will follow recommendations. * His home blood pressure medications including beta adnreas, EDNA inhibitor has been held due to low blood pressure. #Likely cardiorenal syndrome, secondary to acute congestive heart failure Patient presented with congestive heart failure exacerbation, and HILDA with creatinine of 3.5, although his last creatinine was 1.1, eight months ago. * IV Lasix 40 mg already given in the ED * Will wait for mornings creatinine, if it improves, will continue with IV Lasix therapy else will stop #Elevated troponin, likely type II IA Patient never had chest pain, and his EKG is not showing of any ischemic changes , although his troponin was 0.71, and with his acute hypoxic presentation, is likely due to type II IA. This could improve after diuresis, and thus needs to be trended. * We will trend troponin and EKG 2 more times, until downtrending #History of hypertension Due to hypotension, his antihypertensive medications have been held for now, will gradually start as his blood pressure improves. #History of hyperlipidemia Will continue his statin #Diet: NPO until next troponin results, then possibly CHF diet #DVT ppx: IV Heprain continuing #Code status: Full code As Ranked By This Provider Problem List: 1. Acute exacerbation of CHF (congestive heart failure) 2. Acute kidney injury 3. Troponin level elevated 4. Cardiorenal syndrome 5. Hypertension 6. HLD (hyperlipidemia) Core Measures/Misc (04/27) Acute Coronary Syndrome ACS Diagnosis: Yes Last Known EF % 55 No EDNA/ARB d/t low BP No Beta-Andreas d/t Hypotension Congestive Heart Failure Congestive Heart Failure Diagnosis Yes Last Known EF % 55 No EDNA/ARB d/t Renal Failure/Azotemia (,low BP) Cerebrovascular Accident CVA/TIA Diagnosis: No VTE (View Protocol) VTE Risk Factors Cancer/chemo/othr therapy No Mechanical VTE Prophylaxis d/t N/A MechProphylax Ordered No VTE Pharm Prophylaxis d/t NA PharmProphylax ordered Sepsis (View protocol) Sepsis Present: No Lane Lazaro 11/07/17 0426: Attending MD Review Statement Attending Statement Attending MD Statement: examined this patient, discuss w/resident/PA/WORKERS COMPENSATION ADJUSTER, agreed w/resident/PA/WORKERS COMPENSATION ADJUSTER, reviewed EMR data (avail), reviewed images, amended to note Attending Assessment/Plan: CC: Weakness and lethargy PMH: HFpEF, HTN, HLD, history of a flutter, history of GI bleed, secondary to colon cancer, history of colonic resection and radiotherapy, history of bifascicular block S/P pacemaker, abdominal hernia repair surgery Patient came to ER for weakness and lethargy. Patient states that he started to feel poorly approximately 1 week back with increased lethargy, weakness, shortness of breath, patient has chronic cough without much change. He was weak to the extent that he could not even walk a few steps today. He denies any chest pain, palpitations, orthopnea, PND, sick contacts. He uses nighttime oxygen but the last one week he has been using oxygen for longer duration in the morning and in night. Patient is not a good historian and family is not present bedside. He has been compliant with his Lasix dose and took last dose yesterday (40 mg oral), patient does not follow with heart failure clinic. Patient states that he has 2 watery bowel movement every day, which is chronic for him and no changes. Denies any nausea, vomiting, abdominal pain, syncope or presyncope. Patient observes salt and water restriction. Vitals: Afebrile but temperature 96.2 on arrival, pulse 96, RR 24, blood pressure 98/66, saturating 91% on 4.5 L nasal cannula. On exam: A O 3, cooperative, moderate respiratory distress, neck supple, JVD elevated, no lymphadenopathy, mucosa moist, no focal neurological deficit, less 3 leg edema, chronic skin changes bilateral lower extremity CVS: S1-S2, irregular. RS: Coarse crackles throughout the lung son. Abdomen: Soft, NT, ND , bowel sounds present, abdominal hernia, old surgical scar. Peripheral pulses perfusion normal. CXR: Changes of mild CHF. Size remains enlarged. Single lead pacer intact and unchanged. Limited imaging. No ectopic air grossly. Assessment and plan 87-year-old male with extensive past medical history and comorbidities as mentioned above presented in ER for feeling very lethargic and weak since last 1 week, gradually worsening. Patient states that he has been getting short of breath but he appears more short of breath while talking but he does not complain about it. He denies any orthopnea and PND but he is obviously in moderate respiratory distress lying down flat. He denies any chest pain, palpitations, nausea, vomiting and has chronic watery stools since long time. On examination he has elevated JVD, crackles all lung son, chronic bilateral lower extremity edema with skin changes. X-ray confirms the finding of congestive heart failure. Patient was significantly hypoxic on arrival with the saturation up to 77% on room air with tachycardia and tachypnea. He improved with nasal cannula oxygen, required up to 4.5 L. Patient has mild leukocytosis with left shift of unclear etiology. Patient appears to have acute kidney injury , His creatinine is increased significantly from 1.1 to 3.5 as compared to February 2017, BUN is increased to 117. hemoglobin is 17.1 and hematocrit 53.8, rectal examination shows no occult blood, thus excluding GI blood loss. Patient's troponin is elevated to 0.71 this could be secondary to demand ischemia with heart failure, decreased clearance with acute kidney injury. Given obvious volume overload, achy or could be secondary to cardiorenal syndrome. Unclear etiology what precipitated heart failure, as patient has been compliant with his medications and diet. Denies any chest pain, his ECG is not paced. Rhythm abnormality on ECG was informed press operator automatic, who suggested that pacing and not be picking up on ECG. Patient will benefit from ICU admission for significant hypoxemia, heart failure, elevated troponin and acute kidney injury. + Acute hypoxic respiratory failure secondary to acute on chronic heart failure + Acute on chronic heart failure with preserved ejection fraction + Volume overload + Acute kidney injury + Mild leukocytosis with left shift, and lactic acidosis : Unclear etiology, no obvious source of infection + Elevated troponin probably secondary to demand ischemia but ACS could not be ruled out at this point - Admit to ICU - Continuous telemetry monitoring - Continue supplemental oxygen - Patient received 1 dose of IV Lasix in ER, reassess for creatinine and volume status in morning, to order a morning dose of Lasix - Strict I's and O's - Daily weights - Serial troponin and EKGs - 2-D echo in a.m. - Cardiology consult in a.m. - DVT prophylaxis - Check influenza - Continue heparin - Continue all his home medications except Benzapril and oral Lasix TTS 30 min
[2017-11-07] VITALS: BP 96/60
--- NOTE | 2017-11-07 04:27 | Admission Certification ---
Admission Certification Certification Statement - As attending physician, I certify that at the time of - admission, based on clinical presentation, severity of - symptoms, need for further diagnostic testing and - therapeutic interventions, and risk of adverse outcomes - without in-hospital treatment, in my clinical assessment, - this patient requires an acute hospital stay for a minimum - of two nights or longer. I have also considered psychsocial - factors such as support system, advanced age, financial - issues, cognitive issues, and failed out-patient treatments, - past re-admission history, safety of patient, and lack of - compliance as applicable. Specific rationale supporting this admission is: acute on chronic congestive heart failure
[2017-11-07 04:44] LABS: ABSOLUTE BASOPHIL COUNT 0 /CUMM (0.0-0.2); ABSOLUTE EOSINOPHIL COUNT 0 /CUMM (0.0-0.7); ABSOLUTE GRANULOCYTE CT 10.7 /CUMM (1.4-6.5); ABSOLUTE LYMPH COUNT 0.4 /CUMM (1.2-3.4); BASOPHIL % 0.2 % (0.0-2.0); EOSINOPHIL % 0 % (0-5); GRANULOCYTE % 87.9 % (42.2-75.2); HEMATOCRIT 50.5 % (42-52); MEAN CORPUSCULAR HGB 29.4 PG (27.0-31.0); MEAN CORPUSCULAR HGB CONC 31.5 G/DL (33.0-37.0); MEAN CORPUSCULAR VOLUME 93.3 FL (80.0-94.0); MEAN PLATELET VOLUME 9.5 FL (7.4-10.4); PLATELET COUNT 132 /CUMM (130-400); RBC DISTRIBUTION WIDTH 17.7 % (11.5-14.5); RED BLOOD CELL CT 5.41 /CUMM (4.70-6.10); WHITE BLOOD CELL COUNT 12.2 /CUMM (4.8-10.8)
[2017-11-07 04:59] LABS: PTT 114 SEC (25-37)
--- NOTE | 2017-11-07 07:36 | Cons- CRCU ---
Fiorella Loja MD 11/07/17 0736: General Information and HPI Consulting Request Date of Consult: 11/07/17 Requested By: Dr. 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 Patient reports that over the past one week he has been feeling more short of breath and weaker. Reports that normally at baseline he is able to walk to and from the bathroom with a walker with no shortness of breath. States that his brought him into the hospital yesterday as he was unable to get up to walk to the bathroom. Patient reports dyspnea at rest and chronic lower extremity swelling. Patient reports that the swelling does not appear to have worsened. Patient states that he has been taking Lasix 40 mg daily. Patient denies chest pain, palpitations, dizziness, lightheadedness, orthopnea, paroxysmal nocturnal dyspnea. Patient denies any recent illness. Denies fever, chills, abdominal pain, dysuria/hematuria, constipation/diarrhea. Patient reports decreased appetite over the past week. Patient states that he is otherwise compliant with a low-sodium diet. Patient states that he saw his stonemason helper (Dr. Lechuga) approximately a week and half ago for pacemaker check with no issues. There were no medication changes made at that time. Patient has a history of paroxysmal atrial fibrillation however reports that he was on Xarelto at which point he started having GI bleeding. Patient has been off Xarelto and only on aspirin. Patient also reports that he has been on oxygen 2 L nasal cannula normally at night. Reports that he has required greater amount of oxygen over the past week. Patient in the ED was found to be hypotensive, tachycardic, hypoxic with oxygen saturation in the 60s to 70s requiring 4 L of oxygen. Patient's troponins were found to be elevated, had elevated creatinine of 3.5 (baseline creatinine from 2017 his 1.3), with chest x-ray showing mild congestive heart failure. Patient received a one-time dose of IV Lasix 40 mg, aspirin 325 and was started on IV heparin after cardiology was notified. Patient was admitted to the ICU. The patient this morning reports continued shortness of breath and lower extremity swelling. Patient states that he continues to feel weak. Denies any other symptoms at this time. Patient is currently on IV heparin drip. Vitals: Patient remains afebrile, with heart rate between 80-96 telemetry monitoring showing first degree AV block, normal sinus rhythm, blood pressure reading in the 80s to 100 over 50s to 60s, respiration rate 20-25, oxygen saturation 92-95% on 4 L nasal cannula. Allergies/Medications Allergies: Coded Allergies: NO KNOWN ALLERGIES (12/18/15) Home Med List: Aspirin (Ecotrin*) 81 MG TABLET.DR 1 TAB PO DAILY HEART HEALTH (Reported) Benazepril HCl 40 MG TABLET 1 TAB PO DAILY BP (Reported) Cholecalciferol (Vitamin D3) (Vitamin D) 1,000 UNIT TABLET 1 TAB PO DAILY SUPPLEMENT (Reported) Furosemide 40 MG TABLET 1 TAB PO QAM WATER RETENTION (Reported) Furosemide (Lasix) 20 MG TABLET 1 TAB PO QPM LEG EDEMA Metoprolol Tartrate 50 MG TABLET 1 TAB PO BID B/P (Reported) Rosuvastatin Calcium (Crestor) 10 MG TABLET 1 TAB PO QPM CHOLESTEROL ( Reported) Review of Systems Review of Systems Constitutional: Reports: see HPI, weakness. Cardiovascular: Reports: see HPI, edema. Respiratory: Reports: see HPI. GI: Reports: no symptoms. Genitourinary: Reports: no symptoms. Musculoskeletal: Reports: no symptoms. Skin: Reports: erythema (legs bilaterally- chronic). Neurological/Psychological: Reports: weakness. Hematologic/Endocrine: Reports: no symptoms. Immunologic/Allergic: Reports: no symptoms. Past History Travel History Traveled to [place] past 21 day No Medical History Blood Transfusion Hx: No Neurological: NONE EENT: NONE Cardiovascular: CHF, hypertension, hyperlipidemia, paroxysmal atrial flutter, not on anticoagulation due to GI bleed risk LCW PACER Respiratory: NONE Gastrointestinal: lower GI bleed, 2/2 XARELTO Hepatic: CHOLECYSTECTOMY Renal: urinary incontinence Musculoskeletal: NONE Psychiatric: NONE Endocrine: NONE Blood Disorders: NONE Cancer(s): colon/rectal cancer MARKETING OPERATIONS CONSULTANT/Reproductive: NONE Surgical History Surgical History: non-contributory Family History Relations & Conditions If Any: Relation not specified for: *No pertinent family history Psychosocial History Where Do You Live? Home Who Do You Live With? spouse, child Services at Home: None Primary Language: Malawian Smoking Status: Former Smoker ETOH Use: occasional use (last drink whiskey 1 week ago) Illicit Drug Use: denies illicit drug use Living Will? yes Functional Ability ADLs Independent: dressing, eating, toileting, bathing. Ambulation: cane IADLs Independent: shopping, housework, finances, food prep, telephone. Needs Assist: transportation, medication admin. 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 Exam & Diagnostic Data Last 24 Hrs of Vital Signs/I&O Vital Signs Date Time Temp Pulse Resp B/P B/P Pulse O2 O2 Flow FiO2 Mean Ox Delivery Rate 11/07 1600 97 Nasal 45% Cannula 11/07 1553 97.8 91 30 90/60 97 Nasal 50% Cannula 11/07 1200 94 Nasal 4.0L Cannula 11/07 1030 Nasal 4.0L Cannula 11/07 0800 94 Nasal 4.0L Cannula 11/07 0800 96.7 87 24 100/60 94 Nasal 4.0L Cannula 11/07 0400 02 Nasal 4.0L Cannula 11/07 0000 95 Nasal 4.0L Cannula 11/07 0000 96.5 96 24 96/60 95 Nasal 4.0L Cannula 11/06 2240 92 Nasal 4.0L Cannula 11/06 2156 95.7 88 24 96/54 94 Nasal 3.5L Cannula 11/07 2011 96 24 133/66 92 Room Air 3.5L 11/06 1936 92 Nasal 3.5L Cannula 11/06 193 97.8 98 24 115/74 92 Nasal 3.5L Cannula 11/06 1807 92 24 100/62 96 11/06 1800 91 Nasal 4.5L Cannula 11/06 1800 96.2 96 24 98/66 91 Nasal 4.5L Cannula Intake & Output 11/07 1600 11/07 0800 11/07 0000 Intake Total 218.5 103 40 Output Total 510 600 0 Balance -291.5 -497 40 Intake, IV 98.5 103 40 Intake, Oral 120 0 Number 1 1 Bowel Movements Output, Urine 510 600 0 Patient 227 lb Weight Weight Bed scale Measurement Method Physical Exam General Appearance: well developed/nourished, awake, comfortable Head: atraumatic, normal appearance Eyes: Bilateral: normal appearance, PERRL, EOMI. Ears, Nose, Throat: normal pharynx, normal ENT inspection Respiratory: crackles (bilateral auscultation) Cardiovascular: regular rate/rhythm Peripheral Pulses: 2+ carotid (R), 2+ carotid (L), 2+ radial (R), 2+ radial (L) Gastrointestinal: normal bowel sounds, soft, non-tender Extremities: bilateral lower extremity pitting edema 2 to 3+, erythema, no tenderness to palpation Neurologic/Psych: no motor/sensory deficits, awake, alert, oriented x 3 Cranial Nerves: normal hearing, normal speech, PERRL Last 48 Hrs of Labs/Burak: Laboratory Tests 11/07/17 1200: Ur Random Creatinine 44.0, U Random Total Protein 45 H, Ur Random Sodium 34, Ur Random Potassium 26.4, Fraction Sodium Excret 1.8 H 11/07/17 1130: APTT 57 H 11/07/17 1000: Ur Random Creatinine Cancelled, Ur Random Sodium Cancelled, Ur Random Potassium Cancelled, Fraction Sodium Excret Cancelled 11/07/17 0500: Prot Electrophoresis Pending, Total Protein (PEP) Pending, Albumin % (PEP) Pending, [id number] Pending, Rgmst-6-Pqdukisne Pending, Vxyc-7-Rdftisnv Pending, Vout-0-Finakksz Pending, Gamma Globulins Pending, Abnorm Protein Band 1 Pending, Abnorm Protein Band 2 Pending, Abnorm Protein Band 3 Pending, Immunoelectrophoresis Pending 11/07/17 0400: Anion Gap 15, Estimated GFR 17 L, Glucose 83, Calcium 9.4, Phosphorus 6.3 H, Magnesium 2.4 H, Total Bilirubin 1.7 H, AST 31, ALT 35, Troponin I 0.86 *H, Albumin 2.7 L, APTT 114 *H, CBC w Diff MAN DIFF ORDERED, RBC 5.41, MCV 93.3, MCH 29.4, MCHC 31.5 L, RDW 17.7 H, MPV 9.5, Gran % 87.9 H, Lymphocytes % 3.3 L, Monocytes % 8.6, Eosinophils % 0, Basophils % 0.2, Absolute Granulocytes 10.7 H, Segmented Neutrophils 93 H, Absolute Lymphocytes 0.4 L, Lymphocytes 2 L, Monocytes 5, Absolute Monocytes 1.0 H, Absolute Eosinophils 0, Absolute Basophils 0, Nucleated RBCs 1 H, Platelet Estimate ADEQUATE, Polychromasia 1+, Hypochromic-Microcytic 1+, Poikilocytosis 1+, Ovalocytes 1+, Fld Total RBCs Counted 100, Hepatitis A IgM Ab NONREACTIVE, Hep Bs Antigen NONREACTIVE, Hep B Core IgM Ab Conf NONREACTIVE, Hepatitis C Antibody NONREACTIVE 11/07/17 0030: Troponin I 0.90 *H 11/06/172043: Lactic Acid 2.3 H 11/06/17 191: Urinalysis MOD H, Urine Color YEL, Urine Clarity CLDY H, Urine pH 5.5, Ur Specific [place] 1.025, Urine Protein 100 H, Urine Ketones NEG, Urine Nitrite NEG, Urine Bilirubin NEG, Urine Urobilinogen 1.0, Ur Leukocyte Esterase TRACE H , Ur Microscopic SEDIMENT EXAMINED, Urine RBC 3-5, Urine WBC 10-15 H, Ur Epithelial Cells FEW, Urine Bacteria FEW H, Hyaline Casts 5-10 H, Granular Casts 3-5 H, Urine Mucus MOD H, Urine Hemoglobin SMALL H, Urine Glucose NEG, Urine Comment F 11/06/17 183: Anion Gap 14, Estimated GFR 17 L, BUN/Creatinine Ratio 33.4 H, Glucose 86, Lactic Acid 2.5 H, Calcium 9.8, Total Bilirubin 1.7 H, AST 36, ALT 44, Alkaline Phosphatase 121, Troponin I 0.71 *H, [id number]-Lwtgukpbxlk Pept 91029 H, Total Protein 6.9, Albumin 3.3 L, Globulin 3.6, Albumin/Globulin Ratio 0.9 L, CBC w Diff MAN DIFF ORDERED, RBC 5.78, MCV 92.9, MCH 29.5, MCHC 31.8 L, RDW 17.4 H, MPV 9.5, Gran % 88.5 H, Lymphocytes % 3.6 L, Monocytes % 7.4, Eosinophils % 0.3, Basophils % 0.2, Absolute Granulocytes 10.4 H, Segmented Neutrophils 82 H, Band Neutrophils 3, Absolute Lymphocytes 0.4 L, Lymphocytes 5 L, Monocytes 8, Absolute Monocytes 0.9 H, Eosinophils 2, Absolute Eosinophils 0, Absolute Basophils 0, Platelet Estimate ADEQUATE, Normocytic RBCs VERIFIED, Normochromic RBCs VERIFIED 11/06/17 1800: pH 7.34 L, pCO2 38, pO2 68 L, HCO3 21, ABG O2 Sat (Measured) 91.0 L, P-50 ( Temp Corrected) Y, Carboxyhemoglobin 1.7, O2 Concentration % 4.5L, Temperature 96.2 L, O2 Delivery Method NC, Phlebotomy Draw Site RIGHT RADIAL Microbiology 11/07 0030 NASOPHARYN: Influenza Virus A & B Rapid Smear - COMP Assessment/Plan CRCU Impression/Plan: Patient is an 87-year-old male with past medical history of heart failure with preserved ejection fraction (with ejection fraction of greater than 55% and right ventricular systolic pressure of greater than 100 mmHg in 2017), pulmonary hypertension, history of paroxysmal atrial fibrillation not on anticoagulation at this time due to GI bleeding (previously on Xarelto), 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 Patient is admitted to the ICU for management of the following: Respiratory: Acute hypoxic respiratory failure secondary to acute on chronic congestive heart failure and likely secondary to pulmonary embolism Patient on physical exam is volume overloaded with chest x-ray showing mild congestive heart failure and proBNP of 20,000. Patient continued to today on oxygen with increased respiratory effort and was placed on high flow oxygen. Patient saturation improved. Patient had a lower extremity doppler performed today with suspicion of DVTs due to lower extremity swelling and erythema and was found to have an extensive DVT in multiple veins of his left leg. There is high suspicion of pulmonary embolism in this patient which may have caused acute decompensation of his heart failure and led to this admission. Patient was restarted on IV heparin today. Vascular surgery was consulted. - Continue to monitor in the ICU - Continue TRC/DuoNeb treatments - Continue high flow oxygen and wean as tolerated - Continue IV heparin drip - Vascular surgery consult pending. Appreciate recommendations. - IV Lasix 40 mg twice a day per nephrology recommendations. - Continue to monitor strict I's and O's - Cardiology consulted. - Echo performed today. Read is pending. Infectious: Leukocytosis- likely reactive - Continue to monitor vitals and WBC Cardiac: Acute on chronic congestive heart failure with significant pulmonary hypertension seen on previous echo See above Elevated troponin likely type II TN Troponins elevated likely due to demand ischemia in the setting of acute congestive heart failure and acute on chronic renal failure. No significant EKG changes seen. Troponins peaked at 0.90. Patient does not have any chest pain at this time. IV heparin for ACS protocol was discontinued per cardiology ( however note - that IV heparin has been restarted per PE/DVT protocol this afternoon at approximately 4:30PM). - Continue aspirin and statin History of paroxysmal atrial fibrillation Currently in normal sinus rhythm History of hypertension Blood pressure medication held in the setting of hypotension History of hyperlipidemia - Continue statin Heme: None Metabolic: None Alimentary: CHF diet, 1L fluid restriction, low Na and K Nephrology: Acute on chronic renal failure: Patient's baseline creatinine is approximately 1.3. On admission patient's creatinine is 3.5 which has decreased slightly to 3.4 today. Patient's renal failure may be secondary to congestive heart failure leading to a cardiorenal type picture however we will need to rule out other causes of acute renal failure including obstructive an intrinsic causes. Patient had a renal ultrasound today showing no evidence of hydronephrosis or nephrolithiasis with a large exophytic mid right renal cyst that is unchanged from previous imaging. Patient does have a enlarged prostate on ultrasound. - Nephrology consulted. Appreciate recommendations. - Patient is being diuresed with 40 Lasix IV twice a day - SPEP, UPEP pending - Total urine protein/creatinine pending - Hepatitis panel pending - Continue to hold ARB in setting of HILDA and hypotension Neurology: Patient has no focal neurological deficits. Mentation is appropriate at this time. DVT prophylaxis: IV heparin drip Consult Acknowledgment - Thank you for your consult request. Omid Stafford MD 11/07/17 1310: Assessment/Plan CRCU Other Findings/Comments: Omid Schreiber M.D. have examined this patient, reviewed available EMR data, personally reviewed images, discussed with resident/PA/COVER ASSEMBLER, discussed management plan with housestaff and nursing staff, discussed managment plan all of healthcare providers, discussed management plan with patient and/or family, agreed with resident/PA/COVER ASSEMBLER. The past history and parts of the chart have been autopopulated. Impression 87 year old man * CHF exacerbation * HILDA, CKD stage III * hypoxemic respiratory failure - acute on chronic * paroxysmal a.flutter not on a/c secondary to GI bleed risk, hx of colorectal ca * pulmonary htn Plan -cardiology, nephrology consultation -trend troponins -iv diuresis -DG to telemetry if okay with cardiology DVT prophylaxis at all times TTS 40 min Consult Acknowledgment - Thank you for your consult request.
[2017-11-07 08:00] VITALS: BP 100/60
--- NOTE | 2017-11-07 11:23 | Cons- Cardiology ---
General Information and HPI Consulting Request Date of Consult: 11/07/17 Requested By: Omid Stafford MD Reason for Consult: chf Source of Information: patient, old records History of Present Illness: This is a pleasant 87-year-old male with a past medical history of heart failure with preserved ejection fraction pulmonary hypertension, paroxysmal atrial flutter not on anticoagulation due to GI bleed risk, hypertension, hyperlipidemia, prior colorectal cancer status post resection and radiation therapy and bifascicular block, status post single lead pacemaker 2016 who presents to [facility] with chief complaint of 1 week of progressive lethargy and weakness along with shortness of breath and increased lower extremity edema; denied associated palpitations or chest discomfort. He had previously been on Lasix 60 mg p.o. daily but he decreased that to 40 mg p.o. daily in July and was doing well on the lower dose. Denies subjective fever, chills, slurring of speech, or visual changes. Allergies/Medications Allergies: Coded Allergies: NO KNOWN ALLERGIES (12/18/15) Home Med List: Aspirin (Ecotrin*) 81 MG TABLET.DR 1 TAB PO DAILY HEART HEALTH (Reported) Benazepril HCl 40 MG TABLET 1 TAB PO DAILY BP (Reported) Cholecalciferol (Vitamin D3) (Vitamin D) 1,000 UNIT TABLET 1 TAB PO DAILY SUPPLEMENT (Reported) Furosemide 40 MG TABLET 1 TAB PO QAM WATER RETENTION (Reported) Furosemide (Lasix) 20 MG TABLET 1 TAB PO QPM LEG EDEMA Metoprolol Tartrate 50 MG TABLET 1 TAB PO BID B/P (Reported) Rosuvastatin Calcium (Crestor) 10 MG TABLET 1 TAB PO QPM CHOLESTEROL ( Reported) Current Medications: Current Medications Sig/Lexi Start time Last Medication Dose Route Stop Time Status Admin Albuterol Sulfate 3 ML ONCE ONE 11/06 1800 DC 11/06 INH 11/06 1801 1755 Aspirin 0 .STK-MED ONE 11/06 1956 DC PO Aspirin 325 MG ONCE ONE 11/06 194 DC 11/06 PO 11/06 Aspirin Buffered 81 MG DAILY 11/07 1000 AC 11/07 PO 1002 Atorvastatin Calcium 20 MG 1700 11/07 1700 AC PO Furosemide 20 MG BID 11/07 1130 UNVr IV Furosemide 40 MG ONCE ONE 11/07 1999 DC 11/06 IV PUSH 11/06 Furosemide 0 .STK-MED ONE 03/29 1957 DC IV Heparin Sodium 25,000 UNIT Q24H 11/06 2030 AC 11/06 (Porcine) IV 2104 Sodium Chloride 500 ML Ipratropium [place] 2.5 ML ONCE ONE 11/06 1800 DC 11/06 INH 11/06 1801 1754 Review of Systems Review of Systems: Review of systems as per HPI. The remainder of a 10 point review of systems was reviewed and was otherwise negative. Past History Travel History Traveled to [place] past 21 day No Medical History Blood Transfusion Hx: No Neurological: NONE EENT: NONE Cardiovascular: CHF, hypertension, hyperlipidemia, paroxysmal atrial flutter, not on anticoagulation due to GI bleed risk LCW PACER Respiratory: NONE Gastrointestinal: lower GI bleed, 2/2 XARELTO Hepatic: CHOLECYSTECTOMY Renal: urinary incontinence Musculoskeletal: NONE Psychiatric: NONE Endocrine: NONE Blood Disorders: NONE Cancer(s): colon/rectal cancer SYNTHETIC SOIL BLOCKS PULPER/Reproductive: NONE Surgical History Surgical History: non-contributory Family History Relations & Conditions If Any: Relation not specified for: *No pertinent family history Psychosocial History Where Do You Live? Home Who Do You Live With? spouse, child Services at Home: None Primary Language: Croatian Smoking Status: Former Smoker ETOH Use: occasional use (last drink whiskey 1 week ago) Illicit Drug Use: denies illicit drug use Living Will? yes Functional Ability ADLs Independent: dressing, eating, toileting, bathing. Ambulation: cane IADLs Independent: shopping, housework, finances, food prep, telephone. Needs Assist: transportation, medication admin. 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 Exam & Diagnostic Data Vital Signs and I&O Vital Signs Date Time Temp Pulse Resp B/P B/P Pulse O2 O2 Flow FiO2 Mean Ox Delivery Rate 11/07 1030 Nasal 4.0L Cannula 11/07 0800 94 Nasal 4.0L Cannula 11/07 0800 96.7 87 24 100/60 94 Nasal 4.0L Cannula 11/07 0400 02 Nasal 4.0L Cannula 11/07 0000 95 Nasal 4.0L Cannula 11/07 0000 96.5 96 24 96/60 95 Nasal 4.0L Cannula 11/060 92 Nasal 4.0L Cannula 11/07 2155 95.7 88 24 96/54 94 Nasal 3.5L Cannula 11/07 2011 96 24 133/66 92 Room Air 3.5L 11/066 92 Nasal 3.5L Cannula 11/06 1934 97.8 98 24 115/74 92 Nasal 3.5L Cannula 11/06 1807 92 24 100/62 96 11/06 1800 91 Nasal 4.5L Cannula 11/06 1800 96.2 96 24 98/66 91 Nasal 4.5L Cannula Intake & Output 11/07 0800 11/07 0000 11/06 0811/06 0000 Intake Total 103 40 Output Total 600 0 Balance -497 40 Intake, IV 103 40 Intake, Oral 0 Number 1 Bowel Movements Output, Urine 600 0 Patient 227 lb Weight Weight Bed scale Measurement Method Physical Exam: General: no apparent distress. Alert. Eyes: No obvious scleral icterus. HEENT: No jugular venous distention or abnormal jugular venous pulsations. Cardiovascular: Normal intensity S1/S2. Regular. PPM. Respiratory: No rales or rhonchi Abdomen: Soft, nontender with no guarding or rebound tenderness. Musculoskeletal: No clubbing or cyanosis noted, 2+ lower extremity edema Skin: Warm, stasis changes noted Neurologic: No gross focal deficits noted. Labs/Burak Results: Laboratory Tests 11/07 11/07 11/06 0400 0030 2044 Chemistry Sodium (137 - 145 mmol/L) 145 Potassium (3.5 - 5.1 mmol/L) 5.0 Chloride (98 - 107 mmol/L) 100 Carbon Dioxide (22 - 30 mmol/L) 30 Anion Gap (5 - 16) 15 BUN (9 - 20 mg/dL) 117 *H Creatinine (0.7 - 1.2 mg/dL) 3.4 H Estimated GFR (>60 ml/min) 17 L Glucose (65 - 99 mg/dL) 83 Lactic Acid (0.7 - 2.1 mmol/L) 2.3 H Calcium (8.4 - 10.2 mg/dL) 9.4 Phosphorus (2.5 - 4.5 mg/dL) 6.3 H Magnesium (1.6 - 2.3 mg/dL) 2.4 H Total Bilirubin (0.2 - 1.3 mg/dL) 1.7 H AST (17 - 59 U/L) 31 ALT (21 - 72 U/L) 35 Troponin I (<0.11 ng/ml) 0.86 *H 0.90 *H Albumin (3.5 - 5.0 g/dL) 2.7 L Coagulation APTT (25 - 37 SEC) 114 *H Hematology CBC w Diff MAN DIFF ORDERED WBC (4.8 - 10.8 /CUMM) 12.2 H RBC (4.70 - 6.10 /CUMM) 5.41 Hgb (14.0 - 18.0 G/DL) 15.9 Hct (42 - 52 %) 50.5 MCV (80.0 - 94.0 FL) 93.3 MCH (27.0 - 31.0 PG) 29.4 MCHC (33.0 - 37.0 G/DL) 31.5 L RDW (11.5 - 14.5 %) 17.7 H Plt Count (130 - 400 /CUMM) 132 MPV (7.4 - 10.4 FL) 9.5 Gran % (42.2 - 75.2 %) 87.9 H Lymphocytes % (20.5 - 51.1 %) 3.3 L Monocytes % (1.7 - 9.3 %) 8.6 Eosinophils % (0 - 5 %) 0 Basophils % (0.0 - 2.0 %) 0.2 Absolute Granulocytes (1.4 - 6.5 /CUMM) 10.7 H Segmented Neutrophils (42.2 - 75.2 %) 93 H Absolute Lymphocytes (1.2 - 3.4 /CUMM) 0.4 L Lymphocytes (20.5 - 51.1 %) 2 L Monocytes (1.7 - 9.3 %) 5 Absolute Monocytes (0.10 - 0.60 /CUMM) 1.0 H Absolute Eosinophils (0.0 - 0.7 /CUMM) 0 Absolute Basophils (0.0 - 0.2 /CUMM) 0 Nucleated RBCs (0.0 - 0.0 /100WBC) 1 H Platelet Estimate (ADEQUATE) ADEQUATE Polychromasia 1+ Hypochromic-Microcytic 1+ Poikilocytosis 1+ Ovalocytes 1+ Other Body Source Fld Total RBCs Counted (%) 100 11/06 1835 Chemistry Sodium (137 - 145 mmol/L) 142 Potassium (3.5 - 5.1 mmol/L) 5.1 Chloride (98 - 107 mmol/L) 98 Carbon Dioxide (22 - 30 mmol/L) 30 Anion Gap (5 - 16) 14 BUN (9 - 20 mg/dL) 117 *H Creatinine (0.7 - 1.2 mg/dL) 3.5 H Estimated GFR (>60 ml/min) 17 L BUN/Creatinine Ratio (7 - 25 %) 33.4 H Glucose (65 - 99 mg/dL) 86 Lactic Acid (0.7 - 2.1 mmol/L) 2.5 H Calcium (8.4 - 10.2 mg/dL) 9.8 Total Bilirubin (0.2 - 1.3 mg/dL) 1.7 H AST (17 - 59 U/L) 36 ALT (21 - 72 U/L) 44 Alkaline Phosphatase (< 127 U/L) 121 Troponin I (<0.11 ng/ml) 0.71 *H Ara-[id number] Pept (<125 pg/mL) 19516 H Total Protein (6.3 - 8.2 g/dL) 6.9 Albumin (3.5 - 5.0 g/dL) 3.3 L Globulin (1.9 - 4.2 gm/dL) 3.6 Albumin/Globulin Ratio (1.1 - 2.2 %) 0.9 L Hematology CBC w Diff MAN DIFF ORDERED WBC (4.8 - 10.8 /CUMM) 11.7 H RBC (4.70 - 6.10 /CUMM) 5.78 Hgb (14.0 - 18.0 G/DL) 17.1 Hct (42 - 52 %) 53.8 H MCV (80.0 - 94.0 FL) 92.9 MCH (27.0 - 31.0 PG) 29.5 MCHC (33.0 - 37.0 G/DL) 31.8 L RDW (11.5 - 14.5 %) 17.4 H Plt Count (130 - 400 /CUMM) 132 MPV (7.4 - 10.4 FL) 9.5 Gran % (42.2 - 75.2 %) 88.5 H Lymphocytes % (20.5 - 51.1 %) 3.6 L Monocytes % (1.7 - 9.3 %) 7.4 Eosinophils % (0 - 5 %) 0.3 Basophils % (0.0 - 2.0 %) 0.2 Absolute Granulocytes (1.4 - 6.5 /CUMM) 10.4 H Segmented Neutrophils (42.2 - 75.2 %) 82 H Band Neutrophils (0.0 - 5.0 %) 3 Absolute Lymphocytes (1.2 - 3.4 /CUMM) 0.4 L Lymphocytes (20.5 - 51.1 %) 5 L Monocytes (1.7 - 9.3 %) 8 Absolute Monocytes (0.10 - 0.60 /CUMM) 0.9 H Eosinophils (0 - 5.0 %) 2 Absolute Eosinophils (0.0 - 0.7 /CUMM) 0 Absolute Basophils (0.0 - 0.2 /CUMM) 0 Platelet Estimate (ADEQUATE) ADEQUATE Normocytic RBCs VERIFIED Normochromic RBCs VERIFIED Urines Urinalysis MOD H Urine Color (YEL,AMB,STR) YEL Urine Clarity (CLEAR) CLDY H Urine pH (5.0 - 8.0) 5.5 Ur Specific [place] (1.001 - 1.035) 1.025 Urine Protein (NEG,<30 MG/DL) 100 H Urine Ketones (NEG) NEG Urine Nitrite (NEG) NEG Urine Bilirubin (NEG) NEG Urine Urobilinogen (0.1 - 1.0 EU/dl) 1.0 Ur Leukocyte Esterase (NEG) TRACE H Ur Microscopic SEDIMENT EXAMINED Urine RBC (0 - 5 /HPF) 3-5 Urine WBC (0 - 2 /HPF) 10-15 H Ur Epithelial Cells (NONE,FEW) FEW Urine Bacteria (NEG/NONE) FEW H Hyaline Casts (0/LPF) 5-10 H Granular Casts (NONE /LPF) 3-5 H Urine Mucus (FEW,NONE) MOD H Urine Hemoglobin (NEG) SMALL H Urine Glucose (N MG/DL) NEG Urine Comment F 11/06 1800 Blood Gas pH (7.35 - 7.45 PH) 7.34 L pCO2 (35 - 45 TORR) 38 pO2 (80 - 100 TORR) 68 L HCO3 (21 - 28 MEQ/L) 21 ABG O2 Sat (Measured) (>96.0 %) 91.0 L P-50 (Temp Corrected) Y Carboxyhemoglobin (1.5 - 5.0 %) 1.7 O2 Concentration % 4.5L Temperature (97.0 - 100.0 FARH) 96.2 L O2 Delivery Method NC Miscellaneous Phlebotomy Draw Site RIGHT RADIAL Diagnostic Data EKG Results Tracing was personally reviewed and shows sinus rhythm with first-degree AV block and intraventricular conduction delay CXR Results Changes of mild CHF. Size remains enlarged. Single lead pacer intact and unchanged. Limited imaging. No ectopic air grossly. Other Results Telemetry tracings were personally reviewed and shows sinus rhythm with first- degree AV block and 5 beat wide complex rhythm Echo 02/2017 Technically difficult study. Normal global left ventricular size, wall thickness, systolic function with no obvious regional wall motion abnormalities. Left ventricular ejection fraction is estimated at > 55 %. Mild to moderate right ventricular dilatation. Mildly reduced right ventricular global systolic function. Catheter/pacemaker wire in the right ventricular cavity. Mild right atrial dilatation. Mild left atrial dilatation. [id number] tricuspid regurgitation. Severe pulmonary hypertension. Right ventricular systolic pressure estimated to be elevated at > 100 mmHg. Assessment/Plan Assessment/Plan 1. Acute on chronic diastolic heart failure with lower extremity edema 2. Paroxysmal atrial flutter not on anticoagulation due to GI bleed risk 3. Acute kidney injury 4. Elevated troponin likely due to type II [place] 5. Hyperlipidemia 6. Prior colorectal cancer status post resection and radiation therapy 7. History of bifascicular block; status post single lead pacemaker 2016 8. History of pulmonary hypertension The patient does appear volume overloaded and is also noted to have acute kidney injury; this could be due to cardiorenal syndrome and I would agree with IV diuresis at this time if okay with nephrology. The elevated troponin is unlikely due to plaque rupture and intravenous heparin is not required at this time. Follow-up renal ultrasound and echocardiogram. Agree with holding EDNA inhibitor; he should be continued on his outpatient aspirin/statin; okay to hold his outpatient beta-jes for now given the borderline blood pressure. Kt Jean MD [facility] Consult Acknowledgment - Thank you for your consult request.
--- NOTE | 2017-11-07 12:53 | ULTRASOUND REPORT ---
EXAMINATION: US RETROPERITONEAL COMPLETE (RENAL) CLINICAL INFORMATION: Acute kidney injury. Renal failure. Assess for hydronephrosis/obstructive uropathy. COMPARISON: CT scan of the abdomen and pelvis dated 03/04/2014. TECHNIQUE: Real-time imaging of the kidneys and bladder. FINDINGS: Evaluation of the kidneys is slightly limited due to shadowing by adjacent bowel gas. RIGHT KIDNEY: 8.2 x 5.3 x 6.0 cm (SAG x AP x TRV). The kidney is normal in size, contour, and echogenicity. Renal cortical thickness is normal. No calculi. No hydronephrosis. There is a large exophytic 4.9 x 4.3 x 5.8 cm thin-walled anechoic cyst seen arising from the mid right kidney, similar to the previous CT scan from 03/04/2014. No suspicious renal mass noted. LEFT KIDNEY: 7.4 x 5.8 x 4.4 cm (SAG x AP x TRV). The kidney is normal in size, contour, and echogenicity. Renal cortical thickness is normal. No calculi or focal parenchymal lesions. No hydronephrosis. BLADDER: Well-distended and normal. Bilateral ureteral jets are not demonstrated. Prevoid bladder volume is 303 mL. Postvoid bladder volume is 106.2 mL. PROSTATE GLAND: Prostate gland is seen in outline, measuring 4.5 x 4.5 x 6.8 cm (67.9 mL volume). IMPRESSION: Slightly limited assessment due to shadowing by overlying bowel gas. 1. No evidence of hydronephrosis or nephrolithiasis. 2. Large exophytic mid right renal cyst again noted, unchanged. 3. Prostate gland enlarged and heterogeneous.
--- NOTE | 2017-11-07 13:05 | Cons- Nephrology ---
General Information and HPI Consulting Request Date of Consult: 11/07/17 Requested By: Omid Stafford MD Reason for Consult: acute kidney injury superimposed on CKD Source of Information: patient, old records Exam Limitations: no limitations History of Present Illness: The patient is an 87-year-old male with a history of CHF with preserved ejection fraction, severe pulmonary hypertension, paroxysmal atrial fibrillation not on anticoagulation due to a history of GI bleed, colon cancer status post resection /radiation, hypertension, permanent pacemaker for heart block, chronic kidney disease stage III with a baseline creatinine of 1.1-1.4 mg/dL, who presented to the hospital yesterday with a chief complaint of shortness of breath. He also has edema which is chronic. Chest x-ray revealed mild pulmonary edema and pBNP markedly higher than old values. He was significant only hypoxic with O2 sat of 62% room air with hypoxemia and is currently satting in the 90s on 4 L of oxygen. He received 40 mg of IV Lasix in the emergency room last night and diuresis 600 mL with slight improvement in his symptomatology today. I been asked to see him as his creatinine level was 3.5 on admission to the hospital on November 06, stable at 3.4 today November 07, with a BUN of 117. Last blood work had been in February 2017 with a creatinine of 1.1, and as mentioned baseline tends to run in the low ones 1.1-1.4. Urinalysis reveals 2+ protein, 3-5 granular casts, 10-15 white blood cells per high-power field and 3-5 red blood cells per high- power field. Blood pressures been running in the 90s to 100 systolic which is lower than baseline. The patient denies NSAID use or recent IV contrast exposure. He is on an EDNA inhibitor as well as oral Lasix at home. Allergies/Medications Allergies: Coded Allergies: NO KNOWN ALLERGIES (12/18/15) Home Med List: Aspirin (Ecotrin*) 81 MG TABLET.DR 1 TAB PO DAILY HEART HEALTH (Reported) Benazepril HCl 40 MG TABLET 1 TAB PO DAILY BP (Reported) Cholecalciferol (Vitamin D3) (Vitamin D) 1,000 UNIT TABLET 1 TAB PO DAILY SUPPLEMENT (Reported) Furosemide 40 MG TABLET 1 TAB PO QAM WATER RETENTION (Reported) Furosemide (Lasix) 20 MG TABLET 1 TAB PO QPM LEG EDEMA Metoprolol Tartrate 50 MG TABLET 1 TAB PO BID B/P (Reported) Rosuvastatin Calcium (Crestor) 10 MG TABLET 1 TAB PO QPM CHOLESTEROL ( Reported) Current Medications: Current Medications Sig/Lexi Start time Last Medication Dose Route Stop Time Status Admin Albuterol Sulfate 3 ML ONCE ONE 11/06 1800 DC 11/06 INH 11/06 1801 1755 Aspirin 0 .STK-MED ONE 11/06 1956 DC PO Aspirin 325 MG ONCE ONE 11/06 194 DC 11/06 PO 11/06 Aspirin Buffered 81 MG DAILY 11/07 1000 AC 11/07 PO 1002 Atorvastatin Calcium 20 MG 1700 11/07 1700 AC PO Furosemide 20 MG BID 11/07 1130 AC 11/07 IV 1142 Furosemide 40 MG ONCE ONE 11/07 1999 DC 11/06 IV PUSH 11/06 Furosemide 0 .STK-MED ONE 11/06 1956 DC IV Heparin Sodium 25,000 UNIT Q24H 11/06 2030 DC 11/06 (Porcine) IV 2104 Sodium Chloride 500 ML Ipratropium Paxinos 2.5 ML ONCE ONE 11/06 1800 DC 11/06 INH 11/06 1801 1754 Review of Systems Review of Systems: Gen: neg fever, chills, nightsweats, wt loss +fatigue +insomnia Skin: neg rash, pruritus Eye: neg visual changes, diplopia ENT: neg hearing changes, rhinitus CV: neg CP, +SOB, +MANN, no PND, no orthopnea Pulm: neg cough, sputum, hemoptysis GI: neg nausea, vomiting, diarrhea, abdominal pain, hematemesis, BRBPR : neg dysuria, frequency, urgency, hematuria, foamy urine, nocturia Musculoskeletal: neg myalgias, arthralgias Neuro: neg focal weakness, numbness Psych: neg depression, mental status changes Heme: neg bruising, easy bleeding, clots Past History Travel History Traveled to [place] past 21 day No Medical History Blood Transfusion Hx: No Neurological: NONE EENT: NONE Cardiovascular: CHF, hypertension, hyperlipidemia, paroxysmal atrial flutter, not on anticoagulation due to GI bleed risk LCW PACER Respiratory: NONE Gastrointestinal: lower GI bleed, 2/2 XARELTO Hepatic: CHOLECYSTECTOMY Renal: urinary incontinence Musculoskeletal: NONE Psychiatric: NONE Endocrine: NONE Blood Disorders: NONE Cancer(s): colon/rectal cancer SLU[employer] RUNNER/Reproductive: NONE Surgical History Surgical History: non-contributory Family History Relations & Conditions If Any: Relation not specified for: *No pertinent family history Psychosocial History Where Do You Live? Home Who Do You Live With? spouse, child Services at Home: None Primary Language: Nauruan Smoking Status: Former Smoker ETOH Use: occasional use (last drink whiskey 1 week ago) Illicit Drug Use: denies illicit drug use Living Will? yes Functional Ability ADLs Independent: dressing, eating, toileting, bathing. Ambulation: cane IADLs Independent: shopping, housework, finances, food prep, telephone. Needs Assist: transportation, medication admin. 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 Exam & Diagnostic Data Vital Signs and I&O Vital Signs Date Time Temp Pulse Resp B/P B/P Pulse O2 O2 Flow FiO2 Mean Ox Delivery Rate 11/07 1200 94 Nasal 4.0L Cannula 11/07 1030 Nasal 4.0L Cannula 11/07 0800 94 Nasal 4.0L Cannula 11/07 0800 96.7 87 24 100/60 94 Nasal 4.0L Cannula 11/07 0400 02 Nasal 4.0L Cannula 11/07 0000 95 Nasal 4.0L Cannula 11/07 0000 96.5 96 24 96/60 95 Nasal 4.0L Cannula 11/06 2240 92 Nasal 4.0L Cannula 11/066 95.7 88 24 96/54 94 Nasal 3.5L Cannula 11/07 2011 96 24 133/66 92 Room Air 3.5L 11/06 1936 92 Nasal 3.5L Cannula 11/06 193 97.8 98 24 115/74 92 Nasal 3.5L Cannula 11/06 1807 92 24 100/62 96 11/06 1800 91 Nasal 4.5L Cannula 11/06 1800 96.2 96 24 98/66 91 Nasal 4.5L Cannula Intake & Output 11/07 1600 11/07 0400 11/06 1600 11/06 0400 11/05 1600 11/05 0400 Intake Total 103 40 Output Total 600 0 Balance -497 40 Intake, IV 103 40 Intake, Oral 0 Number 1 Bowel Movements Output, Urine 600 0 Patient 227 lb Weight Weight Bed scale Measurement Method Physical Exam: General: NAD, A+O x3. HEENT: NC/AT. No icterus. Moist mucosa Neck: +JVD to mandible CV: RRR, no m/r/g Pulm: +bibasilar rales Abd: soft, NT/ND Lower Ext: 2+ pitting edema with chronic venous changes Upper Ext: no AVFs or AVGs Back: negative for CVA tenderness Neuro: neg tremor, asterixis Skin: no rash, jaundice : no wang catheter Results Pertinent Lab Results: Laboratory Tests 11/07 11/07 11/07 1130 0500 0400 Chemistry Sodium (137 - 145 mmol/L) 145 Potassium (3.5 - 5.1 mmol/L) 5.0 Chloride (98 - 107 mmol/L) 100 Carbon Dioxide (22 - 30 mmol/L) 30 Anion Gap (5 - 16) 15 BUN (9 - 20 mg/dL) 117 *H Creatinine (0.7 - 1.2 mg/dL) 3.4 H Estimated GFR (>60 ml/min) 17 L Glucose (65 - 99 mg/dL) 83 Calcium (8.4 - 10.2 mg/dL) 9.4 Phosphorus (2.5 - 4.5 mg/dL) 6.3 H Magnesium (1.6 - 2.3 mg/dL) 2.4 H Total Bilirubin (0.2 - 1.3 mg/dL) 1.7 H AST (17 - 59 U/L) 31 ALT (21 - 72 U/L) 35 Troponin I (<0.11 ng/ml) 0.86 *H Prot Electrophoresis Pending Total Protein (PEP) Pending Albumin (3.5 - 5.0 g/dL) 2.7 L Albumin % (PEP) Pending Agwoy-[id number] Pending Ofyiy-4-Mcsqtlpct Pending Pfez-9-Ccslogfp Pending [id number] Pending Gamma Globulins Pending Abnorm Protein Band 1 Pending Abnorm Protein Band 2 Pending Abnorm Protein Band 3 Pending Coagulation APTT (25 - 37 SEC) Pending 114 *H Hematology CBC w Diff MAN DIFF ORDERED WBC (4.8 - 10.8 /CUMM) 12.2 H RBC (4.70 - 6.10 /CUMM) 5.41 Hgb (14.0 - 18.0 G/DL) 15.9 Hct (42 - 52 %) 50.5 MCV (80.0 - 94.0 FL) 93.3 MCH (27.0 - 31.0 PG) 29.4 MCHC (33.0 - 37.0 G/DL) 31.5 L RDW (11.5 - 14.5 %) 17.7 H Plt Count (130 - 400 /CUMM) 132 MPV (7.4 - 10.4 FL) 9.5 Gran % (42.2 - 75.2 %) 87.9 H Lymphocytes % (20.5 - 51.1 %) 3.3 L Monocytes % (1.7 - 9.3 %) 8.6 Eosinophils % (0 - 5 %) 0 Basophils % (0.0 - 2.0 %) 0.2 Absolute Granulocytes (1.4 - 6.5 /CUMM) 10.7 H Segmented Neutrophils (42.2 - 75.2 %) 93 H Absolute Lymphocytes (1.2 - 3.4 /CUMM) 0.4 L Lymphocytes (20.5 - 51.1 %) 2 L Monocytes (1.7 - 9.3 %) 5 Absolute Monocytes (0.10 - 0.60 /CUMM) 1.0 H Absolute Eosinophils (0.0 - 0.7 /CUMM) 0 Absolute Basophils (0.0 - 0.2 /CUMM) 0 Nucleated RBCs (0.0 - 0.0 /100WBC) 1 H Platelet Estimate (ADEQUATE) ADEQUATE Polychromasia 1+ Hypochromic-Microcytic 1+ Poikilocytosis 1+ Ovalocytes 1+ Other Body Source Fld Total RBCs Counted (%) 100 Serology Hepatitis A IgM Ab (NONREACTIVE) NONREACTIVE Hep Bs Antigen (NONREACTIVE) NONREACTIVE Hep B Core IgM Ab Conf (NONREACTIVE) NONREACTIVE Hepatitis C Antibody (NONREACTIVE) NONREACTIVE 11/070 2043 1913 Chemistry Lactic Acid (0.7 - 2.1 mmol/L) 2.3 H Troponin I (<0.11 ng/ml) 0.90 *H Urines Urinalysis MOD H Urine Color (YEL,AMB,STR) YEL Urine Clarity (CLEAR) CLDY H Urine pH (5.0 - 8.0) 5.5 Ur Specific Reading (1.001 - 1.035) 1.025 Urine Protein (NEG,<30 MG/DL) 100 H Urine Ketones (NEG) NEG Urine Nitrite (NEG) NEG Urine Bilirubin (NEG) NEG Urine Urobilinogen (0.1 - 1.0 EU/dl) 1.0 Ur Leukocyte Esterase (NEG) TRACE H Ur Microscopic SEDIMENT EXAMINED Urine RBC (0 - 5 /HPF) 3-5 Urine WBC (0 - 2 /HPF) 10-15 H Ur Epithelial Cells (NONE,FEW) FEW Urine Bacteria (NEG/NONE) FEW H Hyaline Casts (0/LPF) 5-10 H Granular Casts (NONE /LPF) 3-5 H Urine Mucus (FEW,NONE) MOD H Urine Hemoglobin (NEG) SMALL H Urine Glucose (N MG/DL) NEG Urine Comment F 11/06 11/06 1835 1800 Blood Gas pH (7.35 - 7.45 PH) 7.34 L pCO2 (35 - 45 TORR) 38 pO2 (80 - 100 TORR) 68 L HCO3 (21 - 28 MEQ/L) 21 ABG O2 Sat (Measured) (>96.0 %) 91.0 L P-50 (Temp Corrected) Y Carboxyhemoglobin (1.5 - 5.0 %) 1.7 O2 Concentration % 4.5L Temperature (97.0 - 100.0 FARH) 96.2 L O2 Delivery Method NC Chemistry Sodium (137 - 145 mmol/L) 142 Potassium (3.5 - 5.1 mmol/L) 5.1 Chloride (98 - 107 mmol/L) 98 Carbon Dioxide (22 - 30 mmol/L) 30 Anion Gap (5 - 16) 14 BUN (9 - 20 mg/dL) 117 *H Creatinine (0.7 - 1.2 mg/dL) 3.5 H Estimated GFR (>60 ml/min) 17 L BUN/Creatinine Ratio (7 - 25 %) 33.4 H Glucose (65 - 99 mg/dL) 86 Lactic Acid (0.7 - 2.1 mmol/L) 2.5 H Calcium (8.4 - 10.2 mg/dL) 9.8 Total Bilirubin (0.2 - 1.3 mg/dL) 1.7 H AST (17 - 59 U/L) 36 ALT (21 - 72 U/L) 44 Alkaline Phosphatase (< 127 U/L) 121 Troponin I (<0.11 ng/ml) 0.71 *H Ufd-H-[id number] Pept (<125 pg/mL) 01661 H Total Protein (6.3 - 8.2 g/dL) 6.9 Albumin (3.5 - 5.0 g/dL) 3.3 L Globulin (1.9 - 4.2 gm/dL) 3.6 Albumin/Globulin Ratio (1.1 - 2.2 %) 0.9 L Hematology CBC w Diff MAN DIFF ORDERED WBC (4.8 - 10.8 /CUMM) 11.7 H RBC (4.70 - 6.10 /CUMM) 5.78 Hgb (14.0 - 18.0 G/DL) 17.1 Hct (42 - 52 %) 53.8 H MCV (80.0 - 94.0 FL) 92.9 MCH (27.0 - 31.0 PG) 29.5 MCHC (33.0 - 37.0 G/DL) 31.8 L RDW (11.5 - 14.5 %) 17.4 H Plt Count (130 - 400 /CUMM) 132 MPV (7.4 - 10.4 FL) 9.5 Gran % (42.2 - 75.2 %) 88.5 H Lymphocytes % (20.5 - 51.1 %) 3.6 L Monocytes % (1.7 - 9.3 %) 7.4 Eosinophils % (0 - 5 %) 0.3 Basophils % (0.0 - 2.0 %) 0.2 Absolute Granulocytes (1.4 - 6.5 /CUMM) 10.4 H Segmented Neutrophils (42.2 - 75.2 %) 82 H Band Neutrophils (0.0 - 5.0 %) 3 Absolute Lymphocytes (1.2 - 3.4 /CUMM) 0.4 L Lymphocytes (20.5 - 51.1 %) 5 L Monocytes (1.7 - 9.3 %) 8 Absolute Monocytes (0.10 - 0.60 /CUMM) 0.9 H Eosinophils (0 - 5.0 %) 2 Absolute Eosinophils (0.0 - 0.7 /CUMM) 0 Absolute Basophils (0.0 - 0.2 /CUMM) 0 Platelet Estimate (ADEQUATE) ADEQUATE Normocytic RBCs VERIFIED Normochromic RBCs VERIFIED Miscellaneous Phlebotomy Draw Site RIGHT RADIAL Imaging/Other Studies: renal US RIGHT KIDNEY: 8.2 x 5.3 x 6.0 cm (SAG x AP x TRV). The kidney is normal in size, contour, and echogenicity. Renal cortical thickness is normal. No calculi. No hydronephrosis. There is a large exophytic 4.9 x 4.3 x 5.8 cm thin-walled anechoic cyst seen arising from the mid right kidney, similar to the previous CT scan from 03/04/2014. No suspicious renal mass noted. LEFT KIDNEY: 7.4 x 5.8 x 4.4 cm (SAG x AP x TRV). The kidney is normal in size, contour, and echogenicity. Renal cortical thickness is normal. No calculi or focal parenchymal lesions. No hydronephrosis. BLADDER: Well-distended and normal. Bilateral ureteral jets are not demonstrated. Prevoid bladder volume is 303 mL. Postvoid bladder volume is 106.2 mL. PROSTATE GLAND: Prostate gland is seen in outline, measuring 4.5 x 4.5 x 6.8 cm (67.9 mL volume). IMPRESSION: Slightly limited assessment due to shadowing by overlying bowel gas. 1. No evidence of hydronephrosis or nephrolithiasis. 2. Large exophytic mid right renal cyst again noted, unchanged. 3. Prostate gland enlarged and heterogeneous. Assessment/Plan Assessment/Recommendations Assessment: Acute kidney injury: Cause unclear but may be secondary to acute cardiorenal syndrome. Also cannot rule out ATN given the relative hypotension and having had been on an EDNA-I. Cannot rule out glomerular disease, given 2+ protein on urinalysis with hypoalbuminemia, and would obtain 24-hour urine protein and creatinine to quantify proteinuria. Renal ultrasound negative for hydronephrosis which rules out a post renal process. From a volume standpoint he is clearly fluid overloaded with rales on exam/pulmonary edema on chest x-ray , and pedal edema. Agree with IV diuresis; he received 40 monos IV Lasix last night and would give another 40 monos IV this morning and plan for 40 g IV twice a day for now with adjustments as necessary, an effort to keep net -1-2 L over 24. Chronic kidney disease stage III: He is known chronic kidney disease stage III with a baseline creatinine in the low ones and also a renal ultrasound he was found to have bilateral small/atrophic kidneys consistent with CKD as well. Cause of chronic kidney disease is likely secondary to age and hypertensive with nephrosclerosis however evaluation for glomerular disease warranted given proteinuria and urinalysis. Would check a monoclonal protein workup as well as a hep B/C panel. Lack of hematuria and lack of rbc casts points away from a nephritic syndrome/vasculitis. Congestive heart failure with preserved ejection fraction with severe pulmonary hypertension: Given the development of overt CHF with relative hypotension would repeat an echo to reassess his cardiac function. Hard to tell if worsening of his renal disease is contributing to the volume overload CHF, or if there may have been worsening of his cardiac function that may be causing the decline in his renal function. Recommendations: 1- Lasix 40 g IV twice a day, first now with adjustment is necessary to reach a goal of net -1-2 L per 24 hours 2- Once taking PO, Fluid restrict to 1 L per day with low salt diet, low potassium 3- Agree with holding benazepril 4- 24-hour urine protein and creatinine 5- SPEP, UPEP, SIEP, UIEP 6- Repeat 2-D echo 7- Hep B/C panels Thank you for the consultation. The case was discussed with the covering ICU team in detail. Ras Gomez MD
[2017-11-07 13:47] LABS: PTT 57 SEC (25-37)
[2017-11-07 15:53] VITALS: BP 90/60
--- NOTE | 2017-11-07 16:06 | ULTRASOUND REPORT ---
EXAMINATION: BILATERAL LOWER EXTREMITY VENOUS ULTRASOUND CLINICAL INFORMATION: Bilateral lower extremity swelling and erythema. Rule out DVT. COMPARISON: Bilateral lower extremity venous Doppler ultrasound dated 02/07/2017. TECHNIQUE: Doppler spectral analysis and color flow Doppler imaging was performed of the lower extremities. Compression and augmentation maneuvers were performed. FINDINGS: Right lower extremity: The right common femoral vein, greater saphenous vein takeoff, femoral vein, and popliteal vein are normally compressible with normal augmentation responses and phasic changes seen with Doppler imaging. The midcalf posterior tibial veins are patent as well. The peroneal veins could not be seen. No popliteal cyst is seen. Left lower extremity: There is a nonocclusive thrombus within the left common femoral vein with incomplete compressibility and color flow demonstrated. 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 The left popliteal vein and the posterior tibial veins in the calf are occluded as well. The left peroneal veins could not be imaged. There is prominent soft tissue edema seen in the soft tissues of the left calf. No popliteal cyst is seen. IMPRESSION: 1. Positive deep venous thrombosis in the left lower extremity. 2. No evidence of deep venous thrombosis in the right lower extremity. This critical result was discussed with Dr. Fiorella Loja 11/07/2017, 3:45 PM and it was ascertained that the content and urgency of this report was understood at the time of direct communication.
--- NOTE | 2017-11-07 16:06 | Event Note ---
Event Note Event Note: Patient has lower extremity doppler this afternoon. Radiology called at approximately 4PM and informed that patient has extensive left lower extremity occlusion and posterior tibial veins, and femoral vein which is duplicated with one vein completely patent and second vein completely occluded And a common femoral vein that has a nonocclusive thromboembolism. Patient is currently saturating at 94% on high flow. Patient's BP is currently in the 100s/60s. HR: 94, RR: 30. Patient reports that his breathing has improved after being placed on the high flow and diuresing further with IV lasix. The assessment and plan was discussed with Dr. Stafford: * At this point a VQ scan is not necessary as it is likely patient has a PE along with the extensive DVT and further imaging will not utilization management manager at this point. * IV heparin was started * Patient will remain in the ICU for close monitoring * Vascular surgery consult placed I spoke to and updated the family regarding patient's current status and plan.
--- NOTE | 2017-11-07 21:15 | Cons- Vascular Surgery ---
General Information and HPI Consulting Request Date of Consult: 11/07/17 Requested By: Omid Stafford MD Reason for Consult: Evaluate left lower extremity DVT Source of Information: patient, old records Exam Limitations: no limitations History of Present Illness: Javon is a very pleasant 87-year-old gentleman with past medical history of CHFpEF (EF>55% in 02/09/17, RVSP>100 mmHg), paroxysmal atrial fibrillation previously on Xarelto stopped due to GI bleeding in 2012, s/p pacemaker in Rt ventricle for ?bifascicular block, hypertension, hyperlipidemia, colon cancer ( status post resection and radiotherapy), and syncope in 2013. He is here with complaints of worsening weakness in shortness of breath. According to the patient himself, in the past year he has been feeling weak, and occasional shortness of breath for which she takes 20 mg of Lasix in addition to 40 mg of daily Lasix orally. Since the past 4 days, he has been feeling progressively weak normally using a cane this week uses walker, and shortness of breath to the point that he had to come to the ED. He also endorses chronic leg swelling, but could not make a difference on recent change in leg size. He denies any chest pain, palpitation, dizziness, orthopnea, PND, fever, chills, nausea, vomiting. He mentioned that he has been very compliant with his medications, food habits, avoiding salt, canned food or food outside, and does not have any changes in his medications recently, or sick contacts, or prolonged travel recently. He has a chronic dry cough which he attributes to Benazepril which he continues to take. Of note, he mentions that he takes oxygen 2 L/m every night, and has been using longer hours of oxygen this week although we do not have any records why he takes oxygen for. (Need medical records) Upon evaluation of his bilateral lower extremities, he was noted to have redness , warmth, and swelling that raised concern for vascular coagulopathy bilaterally. A doppler ultrasound study was done of his bilateral lower extremities and he was found today to have an extensive, fully occluded femoral vein, as well as occluded popliteal and posterior tibial veins on the left side. The right side vasculature was without thrombosis. Vascular surgery has been consulted for recommendations. Allergies/Medications Allergies: Coded Allergies: NO KNOWN ALLERGIES (12/18/15) Home Med List: Aspirin (Ecotrin*) 81 MG TABLET.DR 1 TAB PO DAILY HEART HEALTH (Reported) Benazepril HCl 40 MG TABLET 1 TAB PO DAILY BP (Reported) Cholecalciferol (Vitamin D3) (Vitamin D) 1,000 UNIT TABLET 1 TAB PO DAILY SUPPLEMENT (Reported) Furosemide 40 MG TABLET 1 TAB PO QAM WATER RETENTION (Reported) Furosemide (Lasix) 20 MG TABLET 1 TAB PO QPM LEG EDEMA Metoprolol Tartrate 50 MG TABLET 1 TAB PO BID B/P (Reported) Rosuvastatin Calcium (Crestor) 10 MG TABLET 1 TAB PO QPM CHOLESTEROL ( Reported) Past History Medical History Blood Transfusion Hx: No Neurological: NONE EENT: NONE Cardiovascular: CHF, hypertension, hyperlipidemia, paroxysmal atrial flutter, not on anticoagulation due to GI bleed risk LCW PACER Respiratory: NONE Gastrointestinal: lower GI bleed, 2/2 XARELTO Hepatic: CHOLECYSTECTOMY Renal: urinary incontinence Musculoskeletal: NONE Psychiatric: NONE Endocrine: NONE Blood Disorders: NONE Cancer(s): colon/rectal cancer 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 Home Who Do You Live With? spouse, child Services at Home: None Primary Language: Haitian Smoking Status: Former Smoker ETOH Use: occasional use (last drink whiskey 1 week ago) Illicit Drug Use: denies illicit drug use Living Will? yes Functional Ability ADLs Independent: dressing, eating, toileting, bathing. Ambulation: cane IADLs Independent: shopping, housework, finances, food prep, telephone. Needs Assist: transportation, medication admin. 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 Review of Systems Review of Systems: See H&P Exam & Diagnostic Data Vital Signs and I&O Vital Signs Date Time Temp Pulse Resp B/P B/P Pulse O2 O2 Flow FiO2 Mean Ox Delivery Rate 11/07 1914 94 Nasal 45% Cannula 11/07 1600 97 Nasal 45% Cannula 11/07 1553 97.8 91 30 90/60 97 Nasal 50% Cannula 11/07 1550 97 Nasal 50% Cannula 11/07 1200 94 Nasal 4.0L Cannula 11/07 1030 Nasal 4.0L Cannula 11/07 0800 94 Nasal 4.0L Cannula 11/07 0800 96.7 87 24 100/60 94 Nasal 4.0L Cannula 11/07 0400 02 Nasal 4.0L Cannula 11/07 0000 95 Nasal 4.0L Cannula 11/07 0000 96.5 96 24 96/60 95 Nasal 4.0L Cannula 11/06 2240 92 Nasal 4.0L Cannula 11/06 2156 95.7 88 24 96/54 94 Nasal 3.5L Cannula Intake & Output 11/07 1600 11/07 0800 11/07 0000 11/06 1600 11/06 0800 11/06 0000 Intake Total 218.5 103 40 Output Total 510 600 0 Balance -291.5 -497 40 Intake, IV 98.5 103 40 Intake, Oral 120 0 Number 1 1 Bowel Movements Output, Urine 510 600 0 Patient 227 lb Weight Weight Bed scale Measurement Method Physical Exam: General: Alert and oriented x3, no acute distress Cardiac: RRR, s1s2, has ppm Pulmonary: Requiring supplemental o2, non-labored respiratory effort, no wheeze , rhonchi or rales Abdomen: Non-tender, non-distended Extremties: Moves all extremties, distal sensation grossly intact. Bilateral lower extremities: Distal DP pulses palpable. 2+ pitting edema noted bilaterally. Skin red, warm, dry. Pt denies tenderness with palpation of bilateral calves. Right calf soft, left calf tight but not tender. Left thigh tight but compressible. Assessment/Plan Assessment/Plan This is an 87 year old male with a hospitalization course inclusive of the followin. Acute on chronic diastolic heart failure with lower extremity edema 2. Paroxysmal atrial flutter, previously not on anticoagulation due to GI bleed risk 3. Acute kidney injury 4. Elevated troponin likely due to type II LA 5. Hyperlipidemia 6. Prior colorectal cancer status post resection and radiation therapy 7. History of bifascicular block; status post single lead pacemaker 2016 8. History of pulmonary hypertension He has been evaluated for thrombosis in his lower extremities. Doppler ultrasound obtained today reads: PATIENT: JAVON LORA PRESENT AGE: 87 PATIENT ACCOUNT NO: [id number] : 32 LOCATION: [facility] ORDERING PHYSICIAN: Fiorella Loja MD SERVICE DATE: 11/07/17 EXAM TYPE: US - US-EXT BILAT VENOUS DOPPLER EXAMINATION: BILATERAL LOWER EXTREMITY VENOUS ULTRASOUND CLINICAL INFORMATION: Bilateral lower extremity swelling and erythema. Rule out DVT. COMPARISON: Bilateral lower extremity venous Doppler ultrasound dated 02/07/2017. TECHNIQUE: Doppler spectral analysis and color flow Doppler imaging was performed of the lower extremities. Compression and augmentation maneuvers were performed. FINDINGS: Right lower extremity: The right common femoral vein, greater saphenous vein takeoff, femoral vein, and popliteal vein are normally compressible with normal augmentation responses and phasic changes seen with Doppler imaging. The midcalf posterior tibial veins are patent as well. The peroneal veins could not be seen. No popliteal cyst is seen. Left lower extremity: There is a nonocclusive thrombus within the left common femoral vein with incomplete compressibility and color flow demonstrated. 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 The left popliteal vein and the posterior tibial veins in the calf are occluded as well. The left peroneal veins could not be imaged. There is prominent soft tissue edema seen in the soft tissues of the left calf. No popliteal cyst is seen. IMPRESSION: 1. Positive deep venous thrombosis in the left lower extremity. 2. No evidence of deep venous thrombosis in the right lower extremity. Plan: Pt has been placed on heparin gtt. Treatment is appropriate from a vascular surgical standpoint. Transition to oral anticoagulation can be at the disgression of the medical team taking into consideration his multiple comorbidities. The left lower extremity can have gentle compression. An cruz bandage has been softly wrapped extending from foot through thigh to groin. Mild elevation (pillow height) of left lower extremity recommended. Vascular surgery will continue to follow, Dr. Felix has discussed this plan of care. Consult Acknowledgment - Thank you for your consult request.
[2017-11-07 23:13] LABS: PTT > 120 SEC (25-37)
[2017-11-08] VITALS: BP 92/58
[2017-11-08 04:52] LABS: ABSOLUTE BASOPHIL COUNT 0 /CUMM (0.0-0.2); ABSOLUTE EOSINOPHIL COUNT 0.3 /CUMM (0.0-0.7); ABSOLUTE GRANULOCYTE CT 9.8 /CUMM (1.4-6.5); ABSOLUTE LYMPH COUNT 0.3 /CUMM (1.2-3.4); ABSOLUTE MONOCYTE COUNT 0.7 /CUMM (0.10-0.60); BASOPHIL % 0 % (0.0-2.0); EOSINOPHIL % 2.4 % (0-5); GRANULOCYTE % 87.9 % (42.2-75.2); HEMATOCRIT 47.9 % (42-52); MEAN CORPUSCULAR HGB 29.3 PG (27.0-31.0); MEAN CORPUSCULAR HGB CONC 31.5 G/DL (33.0-37.0); MEAN CORPUSCULAR VOLUME 93.3 FL (80.0-94.0); MEAN PLATELET VOLUME 9.1 FL (7.4-10.4); PLATELET COUNT 124 /CUMM (130-400); RBC DISTRIBUTION WIDTH 17.8 % (11.5-14.5); RED BLOOD CELL CT 5.14 /CUMM (4.70-6.10); WHITE BLOOD CELL COUNT 11.1 /CUMM (4.8-10.8)
[2017-11-08 05:05] LABS: PT 16.1 SEC (9.4-12.5); PTT 65 SEC (25-37)
[2017-11-08 08:00] VITALS: BP 100/60
--- NOTE | 2017-11-08 08:08 | PN- Resident CRCU ---
Fernando uMrray 11/08/17 0808: Subjective HPI/CRCU Issues: Acute hypoxic respiratory failure secondary to acute on chronic congestive heart failure and likely secondary to pulmonary embolism Elevated troponin likely type II IA Acute on chronic renal failure 24 Hour Events: No complaints or acute events overnight Objective Vital Signs & I&O Last 8 Hrs of Vitals and I&O: Intake & Output 11/08 1600 Intake Total Output Total Balance Patient 227 lb Weight Exam General Appearance: well developed/nourished, on 45% HF Respiratory: accessory muscle use, crackles Cardiovascular: regular rate/rhythm Gastrointestinal: normal bowel sounds, soft, non-tender Extremities: Erythematuous skin discoloration Skin: L perineal ecchymosis Vitale Still Needed? Yes Current Medications: Current Medications Sig/Lexi Start time Last Medication Dose Route Stop Time Status Admin Aspirin Buffered 81 MG DAILY 11/07 1000 AC 11/07 PO 1002 Atorvastatin Calcium 20 MG 1700 11/07 1700 AC 11/07 PO 1633 Furosemide 40 MG 7:30 AM, & 4:30 PM 11/07 1630 AC 11/08 IV 0554 Furosemide 20 MG ONCE ONE 11/07 1345 DC 11/07 IV 11/07 1346 1349 Furosemide 20 MG BID 11/07 1130 DC 11/07 IV 1142 Heparin Sodium 25,000 UNIT Q24H 11/07 1630 AC 11/08 (Porcine) IV 0555 Sodium Chloride 500 ML Heparin Sodium 25,000 UNIT Q24H 11/07 1600 DC (Porcine) IV Sodium Chloride 500 ML Heparin Sodium 25,000 UNIT Q24H 11/06 2030 DC 11/06 (Porcine) IV 2104 Sodium Chloride 500 ML EKG Findings: 11/08/17 SR, PVC/PAC, RAD HR 93 QTc 518 Impression/Plan Impression/Problem List Impression: Mr. Blanchard is an 87-year-old male with past medical history of heart failure with preserved ejection fraction (with ejection fraction of greater than 55% and right ventricular systolic pressure of greater than 100 mmHg in 2017), pulmonary hypertension, history of paroxysmal atrial fibrillation not on anticoagulation at this time due to GI bleeding (previously on Xarelto), 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 Problem list: Acute hypoxic respiratory failure secondary to acute on chronic congestive heart failure and likely secondary to pulmonary embolism Elevated troponin likely type II IA Acute on chronic renal failure Plan: ECHO showed flattened septum in systole and diastole consistent with right ventricle pressure and volume overload, EF 55%. Obtain ECG - patient monitor and storage bin tender was suspicious for irregular rate. ECG showed PAC/PVCs 40 meQ potassium x 1 dose to keep potassium > 4 Monitor white count, currently trending down Monitor sodium, mildly elevated Monitor renal function, currently trending down Monitor PLT Continue HF oxygen Continue Lasix 40 mg BID Continue IV heparin for PE Cardiology, Nephro and Vasc recommendations appreciated Problem List: 1. Acute exacerbation of CHF (congestive heart failure) Pain Ratin Tomorrow's Labs & Rationales: CBC, bundle, PTT Plan DVT/Prophylaxis: pharmacological Omid Stafford MD 11/08/17 1126: Attending MD Review Statement Attending Sign Off Attending Cosign Statement: I have: examined this patient, reviewed avalbl EMR data, personally reviewd images, discussd w/resident/PA/RIVET HOLE PUNCHER, discussed mgmt plan w/pierre, discussed mgmt plan w/CM, discussed mgmt plan w/pt, agreed w/resident/PA/RIVET HOLE PUNCHER, amended to note. Other Findings: IOmid M.D. have examined this patient, reviewed available EMR data, personally reviewed images, discussed with resident/PA/RIVET HOLE PUNCHER, discussed management plan with housestaff and nursing staff, discussed managment plan all of healthcare providers, discussed management plan with patient and/or family, agreed with resident/PA/RIVET HOLE PUNCHER. The past history and parts of the chart have been autopopulated. Impression 87 year old man * CHF exacerbation * HILDA, CKD stage III * hypoxemic respiratory failure - acute on chronic * paroxysmal a.flutter not on a/c secondary to GI bleed risk, hx of colorectal ca * pulmonary htn * Left lower extremity DVT Plan -cardiology, nephrology, vascular consultations are appreciated -trend troponins -iv diuresis -a/c with heparin -high flow o2, presumed pulmonary embolism DVT prophylaxis at all times TTS 35 min
--- NOTE | 2017-11-08 10:29 | ECHOCARDIOGRAM REPORT ---
MARLENY LORA Age: 87 : 1930 Gender: M Exam Date: 11/07/2017 13:38 Exam Location: [facility] Ht (in): 72 Wt (lb): 220 BSA: 2.27 BP: 100 / 60 Ordering Physician: Fiorella Loja MD Referring Physician: Fiorella Loja MD Technologist: Johnnie Whipple [facility] Room Number: 111-01 Indications: HEART FAILURE Rhythm: Technical Quality: Technically difficult study FINDINGS Left Ventricle Left ventricular cavity size normal. Left ventricular wall thickness moderately increased. No obvious regional wall motion abnormalities. Left ventricular ejection fraction is estimated at 55 %. Flattened septum in systole and diastole consistent with right ventricle pressure and volume overload. Right Ventricle Moderate right ventricular dilatation. Moderately reduced right ventricular global systolic function. Catheter/pacemaker wire in the right ventricular cavity. Right Atrium Mild right atrial dilatation. Left Atrium Mild left atrial dilatation. Mitral Valve Mild mitral annular calcification. Mild mitral regurgitation. Aortic Valve Diffuse thickening of the aortic valve cusps with reduced excursion. Mild aortic stenosis. Tricuspid Valve Tricuspid valve not well visualized. Moderate tricuspid regurgitation. Severe pulmonary hypertension (RVSP > 80 mmHg). Pulmonic Valve Pulmonic valve not well visualized. Pericardium Small pericardial effusion. Great Vessels Normal size aortic root. CONCLUSIONS Technically difficult study. Left ventricular cavity size normal. Left ventricular wall thickness moderately increased. No obvious regional wall motion abnormalities. Left ventricular ejection fraction is estimated at 55 %. Flattened septum in systole and diastole consistent with right ventricle pressure and volume overload. Moderate right ventricular dilatation. Moderately reduced right ventricular global systolic function. Catheter/pacemaker wire in the right ventricular cavity. Mild right atrial dilatation. Mild left atrial dilatation. Mild aortic stenosis. Moderate tricuspid regurgitation. Severe pulmonary hypertension (RVSP > 80 mmHg). Small pericardial effusion. Jm Jean M.D. (Electronically Signed) Final Date: 08 November 2017 10:28 MEASUREMENTS (Male / Female) Normal Values 2D ECHO LV Diastolic Diameter PLAX 2.7 cm 4.2 - 5.9 / 3.9 - 5.3 cm LV Systolic Diameter PLAX 2.0 cm 2.1 - 4.0 cm LV Fractional Shortening PLAX 25.9 % 25 - 46 % LV Ejection Fraction 2D Teich 52.9 % IVS Diastolic Thickness 1.6 cm LVPW Diastolic Thickness 1.6 cm LV Relative Wall Thickness 1.2 LVOT Diameter 2.2 cm Aortic Root Diameter 3.2 cm Ascending Aorta Diameter 3.6 cm DOPPLER AV Peak Velocity 175.0 cm/s AV Peak Gradient 12.3 mmHg AV Mean Velocity 107.0 cm/s AV Mean Gradient 6.0 mmHg AV Velocity Time Integral 24.4 cm LVOT Peak Velocity 90.2 cm/s LVOT Peak Gradient 3.3 mmHg LVOT Mean Velocity 60.9 cm/s LVOT Mean Gradient 2.0 mmHg LVOT Velocity Time Integral 15.1 cm LVOT Stroke Volume 57.4 cm LVOT Cardiac Index 1691.2 cm/minm AV Area Cont Eq vti 2.4 cm AV Area Cont Eq pk 2.0 cm Mitral E Point Velocity 112.2 cm/s Mitral A Point Velocity 100.0 cm/s Mitral E to A Ratio 1.1 MV Deceleration Time 142.5 ms TR Peak Velocity 404.0 cm/s TR Peak Gradient 65.3 mmHg PV Peak Velocity 76.0 cm/s PV Peak Gradient 2.3 mmHg LV E' Lateral Velocity 3.9 cm/s Mitral E to LV E' Lateral Ratio 28.8 LV E' Septal Velocity 5.9 cm/s Mitral E to LV E' Septal Ratio 19.2
[2017-11-08 16:00] VITALS: BP 98/56
[2017-11-08 16:57] LABS: PTT 69 SEC (25-37)
--- NOTE | 2017-11-08 19:54 | Proc Note Internal Medicine ---
Medicine Procedure Procedure Date: 11/08/17 Medical Procedure(s): central venous cath place Pre-Operative Diagnosis: Hypotension Post-Operative Diagnosis: Hypotension Estimated Blood Loss: less than 50ml Anesthesia: local anesthetic Procedure Findings: Procedure - Central Line Resident - Fernando Murray/Justin Nino Attending - Nydia Consent for procedure was obtained and is in chart. The Patient's right internal jugular was prepped and draped in usual sterile fashion. 2% Lidocaine was used to anesthetize the area. A Triple lumen central line was introduced over a wire via the Seldinger technique and the catheter sutured into place. Good blood flow was noted from the each port. Blood loss was minimal and the patient tolerated the procedure well without complications. Chest xray was ordered to assess for pneumothorax and catheter placement.
--- NOTE | 2017-11-08 20:27 | RADIOLOGY REPORT ---
EXAMINATION: XR PORTABLE CHEST CLINICAL INFORMATION: 87-year-old man post central line placement. COMPARISON: 11/06/2017 chest radiograph TECHNIQUE: Portable frontal view of the chest was obtained. FINDINGS: There has been interval placement of a right IJ central venous catheter. The catheter tip projects over the right atrium. There is mild to moderate pulmonary edema with superimposed bibasilar opacities likely reflecting effusions with associated atelectasis/consolidation. Moderate to severe cardiomegaly is unchanged. There is a left-sided single lead pacemaker. There is no pneumothorax. IMPRESSION: 1. The tip of a right IJ central venous catheter projects over the proximal right atrium. No pneumothorax. 2. Mild to moderate pulmonary edema with bilateral effusions.
[2017-11-09] VITALS: BP 100/60
--- NOTE | 2017-11-09 02:24 | Event Note ---
Event Note Event Note: Called regarding GPCs in blood cultures from 11/06, patient had right IJ TLC placed earlier today and was started on levophed today. Vancomycin 1500mg IV x 1 ordered
[2017-11-09 06:22] LABS: ABSOLUTE BASOPHIL COUNT 0 /CUMM (0.0-0.2); ABSOLUTE EOSINOPHIL COUNT 0.1 /CUMM (0.0-0.7); ABSOLUTE GRANULOCYTE CT 11.6 /CUMM (1.4-6.5); ABSOLUTE LYMPH COUNT 0.3 /CUMM (1.2-3.4); ABSOLUTE MONOCYTE COUNT 1.2 /CUMM (0.10-0.60); BASOPHIL % 0.2 % (0.0-2.0); EOSINOPHIL % 0.5 % (0-5); GRANULOCYTE % 87.9 % (42.2-75.2); HEMATOCRIT 50.8 % (42-52); MEAN CORPUSCULAR HGB 29.1 PG (27.0-31.0); MEAN CORPUSCULAR HGB CONC 30.7 G/DL (33.0-37.0); MEAN CORPUSCULAR VOLUME 94.8 FL (80.0-94.0); MEAN PLATELET VOLUME 9.4 FL (7.4-10.4); PLATELET COUNT 150 /CUMM (130-400); RED BLOOD CELL CT 5.36 /CUMM (4.70-6.10)
[2017-11-09 06:25] LABS: PTT 85 SEC (25-37)
[2017-11-09 06:48] LABS: WHITE BLOOD CELL COUNT 13.2 /CUMM (4.8-10.8)
[2017-11-09 08:00] VITALS: BP 70/50
--- NOTE | 2017-11-09 08:11 | PN- Resident CRCU ---
Emigdio SHAH,Anshu 11/09/17 0811: Subjective HPI/CRCU Issues: Patient in the ICU for treatment of cardiorenal syndrome, DVT/presumed PE, shock requiring pressor support. I followed up and examined the patient today. He is resting comfortably in bed, alert, oriented, not in distress, and does not offer any complaints. He has IV Levophed running at 14 g/min currently with SBP barely at 90/60. 24 Hour Events: His blood pressure was dropping overnight, and also one of his blood culture sample is growing gram-positive cocci in clusters, and with sepsis/infection in mind, the night house staff team gave him one dose (1.5 gm) of vancomycin. Objective Vital Signs & I&O Last 8 Hrs of Vitals and I&O: Vital Signs Date Time Temp Pulse Resp B/P B/P Pulse O2 O2 Flow FiO2 Mean Ox Delivery Rate 11/09 1200 98.2 84 27 102/60 93 Nasal 55% Cannula 11/09 1022 92 Nasal 55% Cannula 11/09 0800 97.3 104 31 70/50 92 Nasal 55% Cannula 11/09 0800 92 Nasal 70% Cannula 11/09 0632 98 28 114/56 11/09 0400 92 Nasal 70% Cannula 11/09 0207 92 Nasal 70% Cannula 11/09 0000 92 Nasal 70% Cannula 11/09 0000 97.8 119 24 100/60 96 Nasal 70% Cannula 11/08 2203 94 Nasal 70% Cannula 11/08 1900 94 Nasal 80% Cannula 11/08 1830 100 72/48 11/08 1619 96 Nasal 55% Cannula 11/08 1600 98 Nasal 55% Cannula 11/08 1600 97.6 105 22 98/56 98 Nasal Cannula Exam General Appearance: alert, awake, comfortable, overweight Other Physical Findings: Skin No Rashes, No Breakdown, No Significant Lesion Skin Temp/Moisture Exam: Warm/Dry HEENT Atraumatic, PERRLA, EOMI, Mucous Membr. moist/pink Neck Supple, no JVD noted today, CENTRAL LINE IN SITU Cardiovascular Regular Rate, loud S2 Lungs B/L CRACKLES but better areation than on Friday Abdomen Normal Bowel Sounds, Soft, No Tenderness, distension, chronic, congenital umbilical hernia present Neurological Normal Speech, Strength at 5/5 X4 Ext, Normal Tone, Sensation Intact, Cranial Nerves 3-12 NL, Reflexes 2+, grossly intact Extremities No Clubbing, No Cyanosis, Normal Pulses, b/l pitting pedal edema, L> R chronic erythema, L>R warm to touch, cruz wrapped over left side Vascular Normal Pulses, Pulses Symmetrical recorded by Doppler probe Current Medications: Current Medications Sig/Lexi Start time Last Medication Dose Route Stop Time Status Admin Aspirin Buffered 81 MG DAILY 11/07 1000 AC 11/09 PO 1010 Atorvastatin Calcium 20 MG 1700 11/07 1700 AC 11/08 PO 1619 Furosemide 40 MG 7:30 AM, & 4:30 PM 11/07 1630 DC 11/08 IV 1619 Heparin Sodium 25,000 UNIT Q24H 11/07 1630 AC 11/08 (Porcine) IV 0555 Sodium Chloride 500 ML Norepinephrine 4 MG Q4H 11/09 1045 AC 11/09 Dextrose/Water 250 ML IV 1046 Norepinephrine 4 MG Q24H 11/08 2014 DC 11/09 Dextrose/Water 250 ML IV 11/09 1044 0632 Norepinephrine 4 MG .STK-MED ONE 11/08 1845 DC IV 11/08 1846 Sodium Chloride 250 ML BOLUS ONE 11/08 1830 DC 11/08 IV 11/08 1929 1841 Vancomycin HCl 1,500 MG ONCE ONE 11/09 0300 DC 11/09 Dextrose/Water 250 ML IV 11/09 0359 0400 Impression/Plan Impression/Problem List Impression: 87-year-old gentleman with past medical history of CHFpEF (EF>55% in 02/09/17, RVSP>100 mmHg), paroxysmal atrial fibrillation previously on Xarelto stopped due to GI bleeding in 2012, s/p pacemaker in Rt ventricle for ?bifascicular block, hypertension, hyperlipidemia, colon cancer status post resection and radiotherapy, syncope in 2012, is here with complaints of worsening weakness in shortness of breath. Patient was found to have acute pulmonary edema, cardio renal syndrome, Left lower extremity DVT, presumed PE, and is being managed in the ICU. Problem list: * Acute pulmonary edema, initially required diuresis, slightly better today * Cardiorenal syndrome, with slightly worsening of creatinine today * Left lower extremity DVT, on IV heparin * Presumed PE, on IV heparin, high flow nasal cannula oxygen at 70% * Gram-positive coccemia, received 1 dose of vancomycin today. Plan: * Continue ICU care, monitoring * Continue to hold Lasix, if necessary, will also consider giving small dose of IV fluid * Blood pressure continues to drop on levophed, thus giving differential diagnosis of cardiogenic shock versus septic shock. Thus, started on Dobutamine after cardiology consultation. Will titrate Dobutamine accordingly. * Continue IV Heparin for DVT/presumed PE. * Repeat Vancomycin level tomorrow AM and two sets of blood cultures as well then, and follow off abx till then. ID consult appreciated. * Continue CHF diet with low K. * Full code UPDATE: The idea to keep the patient on dobutamine drip and to lower Levophed, seems to be challenging as the patient is requiring both Levophed as well as dobutamine drip as of now. At the time of my sign out, he is on dobutamine drip 13 mics/kg /min, and Levophed at 19 mics/min. We might have to still go up on Dobutamine and even plan to start another pressor tonight. Night team signed out accordingly. Problem List: 1. Cardiorenal syndrome Pain Ratin Tomorrow's Labs & Rationales: icu, lab bundle Plan DVT/Prophylaxis: pharmacological Omid Stafford MD 11/09/17 1201: Attending MD Review Statement Attending Sign Off Attending Cosign Statement: I have: examined this patient, reviewed avalbl EMR data, personally reviewd images, discussd w/resident/PA/TAPE RECORDER REPAIRER, discussed mgmt plan w/pierre, discussed mgmt plan w/CM, discussed mgmt plan w/pt, agreed w/resident/PA/TAPE RECORDER REPAIRER, amended to note. Other Findings: IOmid M.D. have examined this patient, reviewed available EMR data, personally reviewed images, discussed with resident/PA/TAPE RECORDER REPAIRER, discussed management plan with housestaff and nursing staff, discussed managment plan all of healthcare providers, discussed management plan with patient and/or family, agreed with resident/PA/TAPE RECORDER REPAIRER. The past history and parts of the chart have been autopopulated. Impression 87 year old man * CHF exacerbation with now a clinical presentation consistent with cardiogenic shock * HILDA, CKD stage III * hypoxemic respiratory failure - acute on chronic * paroxysmal a.flutter not on a/c secondary to GI bleed risk, hx of colorectal ca * pulmonary htn * Left lower extremity DVT Plan -cardiology, nephrology, vascular consultations are appreciated -trend troponins -a/c with heparin -high flow o2, presumed pulmonary embolism -continue vasopressors, will give consideration for dobutamine if acceptable with cardiology DVT prophylaxis at all times TTS 35 min
[2017-11-09 12:00] VITALS: BP 102/60
--- NOTE | 2017-11-09 12:17 | PN- Cardiology ---
Subjective Subjective: Patient is a little lethargic but responsive and comfortable on high flow O2. He is currently on Levophed. Objective Vital Signs and I&Os Vital Signs Date Time Temp Pulse Resp B/P B/P Pulse O2 O2 Flow FiO2 Mean Ox Delivery Rate 11/09 1022 92 Nasal 55% Cannula 11/09 08 97.3 104 31 70/50 92 Nasal 55% Cannula 11/09 0800 92 Nasal 70% Cannula 11/09 0632 98 28 114/56 11/09 0400 92 Nasal 70% Cannula 11/09 0207 92 Nasal 70% Cannula 11/09 0000 92 Nasal 70% Cannula 11/09 0000 97.8 119 24 100/60 96 Nasal 70% Cannula 11/08 2203 94 Nasal 70% Cannula 11/08 1900 94 Nasal 80% Cannula 11/08 1830 100 72/48 11/08 1619 96 Nasal 55% Cannula 11/08 1600 98 Nasal 55% Cannula 11/08 1600 97.6 105 22 98/56 98 Nasal Cannula Intake & Output 11/09 1600 11/09 0811/09 0000 11/08 1600 11/08 0800 11/08 0000 Intake Total 759 553 582 245 506 Output Total 420 205 527 5937 800 Balance 339 -152 -218 -755 -294 Intake, IV 659 333 142 125 206 Intake, Oral 100 220 440 120 300 Number 0 0 0 Bowel Movements Output, Urine 420 707 215 1790 800 Patient 214 lb 227 lb Weight Weight Bed scale Measurement Method Physical Exam: General: Comfortable on high flow oxygen Eyes: No obvious scleral icterus. HEENT: No abnormal jugular venous pulsations. Cardiovascular: Normal intensity S1/S2. Regular. PPM. Respiratory: Basilar rales noted Abdomen: Soft, nontender with no guarding or rebound tenderness. Musculoskeletal: No clubbing or cyanosis noted, 2+ lower extremity edema Skin: Warm, stasis changes noted Neurologic: No gross focal deficits noted. Current Medications: Current Medications Sig/Lexi Start time Last Medication Dose Route Stop Time Status Admin Aspirin Buffered 81 MG DAILY 11/07 1000 AC 11/09 PO 1010 Atorvastatin Calcium 20 MG 1700 11/07 1700 AC 11/08 PO 1619 Furosemide 40 MG 7:30 AM, & 4:30 PM 11/07 1630 DC 11/08 IV 1619 Heparin Sodium 25,000 UNIT Q24H 11/07 1630 AC 03/31 (Porcine) IV 0555 Sodium Chloride 500 ML Norepinephrine 4 MG Q4H 11/09 1045 AC 11/09 Dextrose/Water 250 ML IV 1046 Norepinephrine 4 MG Q24H 11/08 2014 DC 11/09 Dextrose/Water 250 ML IV 11/09 1044 0632 Norepinephrine 4 MG .STK-MED ONE 11/08 1845 DC IV 11/08 1846 Sodium Chloride 250 ML BOLUS ONE 11/08 1830 DC 11/08 IV 11/08 1929 1841 Vancomycin HCl 1,500 MG ONCE ONE 11/09 0300 DC 11/09 Dextrose/Water 250 ML IV 11/09 0359 0400 Results Last 48 Hrs of Labs/Mics: Laboratory Tests 11/09/17 0530: Anion Gap 12, Estimated GFR 19 L, Glucose 125 H, Calcium 8.9, Phosphorus 6.9 H, Magnesium 2.2, Total Bilirubin 1.3, AST 24, ALT 33, Albumin 2.7 L, APTT 85 H, CBC w Diff NO MAN DIFF REQ, RBC 5.36, MCV 94.8 H, MCH 29.1, MCHC 30.7 L, RDW 18.0 H, MPV 9.4, Gran % 87.9 H, Lymphocytes % 2.4 L, Monocytes % 9.0, Eosinophils % 0.5, Basophils % 0.2, Absolute Granulocytes 11.6 H, Absolute Lymphocytes 0.3 L, Absolute Monocytes 1.2 H, Absolute Eosinophils 0.1, Absolute Basophils 0 11/08/17 1630: APTT 69 H 11/08/17 1200: Urine IEP Pending, Ur Creatinine 24 Hour Pending, Ur Total Protein 24 Hr Pending , Protein/Creat Ratio 24h Pending, U Protein Electrophores Pending, Urine Albumin (%) Pending, U Bpalc-9-Iymrimgg Pending, U Arlfw-0-Sywvhqmb Pending, U Beta Globulin Pending, U Gamma Globulin Pending, U Abnormal Prot Band 1 Pending, U Abnormal Prot Band 2 Pending, U Abnormal Prot Band 3 Pending 11/08/17 0435: Anion Gap 12, Estimated GFR 22 L, Glucose 100 H, Calcium 7.7 L, Phosphorus 5.2 H, Magnesium 2.1, Total Bilirubin 1.2, AST 23, ALT 29, Albumin 2.0 L, PT 16.1 H, INR 1.47 H, APTT 65 H, Fibrinogen Activity 434 H, D-Dimer High Sensitivty 3391 H, CBC w Diff NO MAN DIFF REQ, RBC 5.14, MCV 93.3, MCH 29.3, MCHC 31.5 L, RDW 17.8 H, MPV 9.1, Gran % 87.9 H, Lymphocytes % 3.0 L, Monocytes % 6.7, Eosinophils % 2.4, Basophils % 0, Absolute Granulocytes 9.8 H, Absolute Lymphocytes 0.3 L, Absolute Monocytes 0.7 H, Absolute Eosinophils 0.3 , Absolute Basophils 0 11/07/17 2230: APTT > 120 *H Microbiology 11/07 1440 URINE ROUT: Urine Culture - COMP Recent Imaging Studies: Telemetry tracings were personally reviewed and shows sinus rhythm and sinus tachycardia Assessment/Plan Assessment/Plan 1. Acute on chronic diastolic heart failure with lower extremity edema 2. Paroxysmal atrial flutter not on anticoagulation due to GI bleed risk 3. Acute kidney injury 4. Elevated troponin likely due to type II NH 5. Hyperlipidemia 6. Prior colorectal cancer status post resection and radiation therapy 7. History of bifascicular block; status post single lead pacemaker 2016 8. History of severe pulmonary hypertension with right ventricular dysfunction 9. Hypotension requiring pressors 10. Lower extremity DVT Patient is slightly lethargic but arousable and following commands. He is now on intravenous heparin for lower extremity DVT. Agree that pulmonary embolism is within the differential but agree with not obtaining CT angiogram given the renal failure as this would not acutely policy change clerk. Unclear if the blood culture might be a contaminant but the etiology of his hypotension is also not clear. I did discuss with Dr. Stafford earlier and given the patient's severe pulmonary hypertension with right ventricular dysfunction a trial of dobutamine would be reasonable to see if it results in any significant hemodynamic improvement or improvement in renal function. Agree with holding additional diuretics for the time being although the patient clinically does not appear hypovolemic. His condition is guarded. Kt Jean MD [facility] Continue telemetry? Yes
--- NOTE | 2017-11-09 13:36 | Cons- Infect Disease ---
General Information and HPI Consulting Request Date of Consult: 11/09/17 Requested By: Omid Stafford MD Reason for Consult: abx advice Source of Information: patient, primary team Exam Limitations: clinical condition History of Present Illness: 87-year-old gentleman with past medical history of CHFpEF (EF>55% 2016), paroxysmal atrial fibrillation previously on Xarelto stopped due to GI bleeding in 2012, s/p pacemaker in R ventricle for bifascicular block, hypertension, hyperlipidemia, colon cancer status post resection and radiotherapy, syncope in 2012 was admitted on 11/06/17 w/ worsening weakness in shortness of breath. He has a chronic dry cough. While in the hospital LE's doppler ultrasound study was performed and revealed an extensive, fully occluded femoral vein, as well as occluded popliteal and posterior tibial veins on the left side; the right side vasculature was without thrombosis. Patient developed hypotension and worsening leukocytosis. For further advice ID consult called. He remains afebrile, mild dry cough. No chills. denies diarrhea. Allergies/Medications Allergies: Coded Allergies: NO KNOWN ALLERGIES (12/18/15) Home Med List: Aspirin (Ecotrin*) 81 MG TABLET.DR 1 TAB PO DAILY HEART HEALTH (Reported) Benazepril HCl 40 MG TABLET 1 TAB PO DAILY BP (Reported) Cholecalciferol (Vitamin D3) (Vitamin D) 1,000 UNIT TABLET 1 TAB PO DAILY SUPPLEMENT (Reported) Furosemide 40 MG TABLET 1 TAB PO QAM WATER RETENTION (Reported) Furosemide (Lasix) 20 MG TABLET 1 TAB PO QPM LEG EDEMA Metoprolol Tartrate 50 MG TABLET 1 TAB PO BID B/P (Reported) Rosuvastatin Calcium (Crestor) 10 MG TABLET 1 TAB PO QPM CHOLESTEROL ( Reported) Past History Travel History Traveled to [place] past 21 day No Medical History Blood Transfusion Hx: No Neurological: NONE EENT: NONE Cardiovascular: CHF, hypertension, hyperlipidemia, paroxysmal atrial flutter, not on anticoagulation due to GI bleed risk LCW PACER Respiratory: NONE Gastrointestinal: lower GI bleed, 2/2 XARELTO Hepatic: CHOLECYSTECTOMY Renal: urinary incontinence Musculoskeletal: NONE Psychiatric: NONE Endocrine: NONE Blood Disorders: NONE Cancer(s): colon/rectal cancer POOLING OPERATOR/Reproductive: NONE History of MRSA: No History of VRE: No History of CDIFF: No Isolation History: Standard Tetanus Vaccine: 12/12/13 Surgical History Surgical History: non-contributory Family History Relations & Conditions If Any: Relation not specified for: *No pertinent family history Psychosocial History Where Do You Live? Home Who Do You Live With? spouse, child Services at Home: None Primary Language: Latvian Smoking Status: Former Smoker ETOH Use: occasional use (last drink whiskey 1 week ago) Illicit Drug Use: denies illicit drug use Living Will? yes Functional Ability ADLs Independent: dressing, eating, toileting, bathing. Ambulation: cane IADLs Independent: shopping, housework, finances, food prep, telephone. Needs Assist: transportation, medication admin. 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 Exam & Diagnostic Data Last 24 Hrs of Vital Signs/I&O Vital Signs Date Time Temp Pulse Resp B/P B/P Pulse O2 O2 Flow FiO2 Mean Ox Delivery Rate 11/09 1200 93 Nasal 55% Cannula 11/09 1200 98.2 84 27 102/60 93 Nasal 55% Cannula 11/09 1022 92 Nasal 55% Cannula 11/09 0800 97.3 104 31 70/50 92 Nasal 55% Cannula 11/09 0800 92 Nasal 70% Cannula 11/09 0632 98 28 114/56 11/09 0400 92 Nasal 70% Cannula 11/09 0207 92 Nasal 70% Cannula 11/09 0000 92 Nasal 70% Cannula 11/09 0000 97.8 119 24 100/60 96 Nasal 70% Cannula 11/08 2203 94 Nasal 70% Cannula 11/08 1900 94 Nasal 80% Cannula 11/08 1830 100 72/48 11/08 1619 96 Nasal 55% Cannula 11/08 1600 98 Nasal 55% Cannula 11/08 1600 97.6 105 22 98/56 98 Nasal Cannula Intake & Output 11/09 1600 11/09 0800 11/09 0000 Intake Total 759 553 Output Total 420 705 Balance 339 -152 Intake, IV 659 333 Intake, Oral 100 220 Output, Urine 420 705 Patient 214 lb Weight Weight Bed scale Measurement Method Physical Exam Other Physical Findings: General Appearance Alert, Oriented X3, Cooperative, No Acute Distress, on nasal canula Skin Temp/Moisture Exam: Warm/Dry Sepsis Skin Exam (color): Normal for Ethnicity HEENT Atraumatic, PERRLA, EOMI, Mucous Membr. moist/pink Neck Supple, R IJ cath in place Lymphatic Cervical nl Cardiovascular Regular Rate, S1 S2 present Lungs anteriorly b/l decreased breath sound but no wheeze or rales Abdomen Normal Bowel Sounds, Soft, No Tenderness Neurological Normal Speech, Cranial Nerves 3-12 NL, Extremities No Clubbing, No Cyanosis, Normal Pulses, Skin: R truong mild erythema w/o increased warmth Vascular Normal Pulses, Pulses Symmetrical Last 24 Hours of Lab Results: Laboratory Tests 11/09 11/08 0530 1630 Chemistry Sodium (137 - 145 mmol/L) 145 Potassium (3.5 - 5.1 mmol/L) 4.8 Chloride (98 - 107 mmol/L) 101 Carbon Dioxide (22 - 30 mmol/L) 32 H Anion Gap (5 - 16) 12 BUN (9 - 20 mg/dL) 112 *H Creatinine (0.7 - 1.2 mg/dL) 3.2 H Estimated GFR (>60 ml/min) 19 L Glucose (65 - 99 mg/dL) 125 H Calcium (8.4 - 10.2 mg/dL) 8.9 Phosphorus (2.5 - 4.5 mg/dL) 6.9 H Magnesium (1.6 - 2.3 mg/dL) 2.2 Total Bilirubin (0.2 - 1.3 mg/dL) 1.3 AST (17 - 59 U/L) 24 ALT (21 - 72 U/L) 33 Albumin (3.5 - 5.0 g/dL) 2.7 L Coagulation APTT (25 - 37 SEC) 85 H 69 H Hematology CBC w Diff NO MAN DIFF REQ WBC (4.8 - 10.8 /CUMM) 13.2 H RBC (4.70 - 6.10 /CUMM) 5.36 Hgb (14.0 - 18.0 G/DL) 15.6 Hct (42 - 52 %) 50.8 MCV (80.0 - 94.0 FL) 94.8 H MCH (27.0 - 31.0 PG) 29.1 MCHC (33.0 - 37.0 G/DL) 30.7 L RDW (11.5 - 14.5 %) 18.0 H Plt Count (130 - 400 /CUMM) 150 MPV (7.4 - 10.4 FL) 9.4 Gran % (42.2 - 75.2 %) 87.9 H Lymphocytes % (20.5 - 51.1 %) 2.4 L Monocytes % (1.7 - 9.3 %) 9.0 Eosinophils % (0 - 5 %) 0.5 Basophils % (0.0 - 2.0 %) 0.2 Absolute Granulocytes (1.4 - 6.5 /CUMM) 11.6 H Absolute Lymphocytes (1.2 - 3.4 /CUMM) 0.3 L Absolute Monocytes (0.10 - 0.60 /CUMM) 1.2 H Absolute Eosinophils (0.0 - 0.7 /CUMM) 0.1 Absolute Basophils (0.0 - 0.2 /CUMM) 0 Last 24 Hours of [place] Results: Status : ADM IN SPEC #: [id number] SWETA: 11/06/17 STATUS: RES RECD: 11/06/[address]: Edis Tijerina SOURCE: BLOOD ENTR: 11/06/[address]: Kika SHAH,Mendez Garrison SPDESC: 1ST/VENOUS ORDERED: BLOOD CULTURE Procedure Result > BLOOD CULTURE REPORT Preliminary 11/09/17 GRAM STAIN SUGGESTIVE OF: GRAM POSITIVE COCCI IN CLUSTERS Called to/Readback by [email or web address] by [email or web address] 11/09/17 0215/0216 Diagnostic Data Recent Imaging Findings: XR PORTABLE CHEST CLINICAL INFORMATION: 87-year-old man post central line placement. COMPARISON: 11/06/2017 chest radiograph TECHNIQUE: Portable frontal view of the chest was obtained. FINDINGS: There has been interval placement of a right IJ central venous catheter. The catheter tip projects over the right atrium. There is mild to moderate pulmonary edema with superimposed bibasilar opacities likely reflecting effusions with associated atelectasis/consolidation. Moderate to severe cardiomegaly is unchanged. There is a left-sided single lead pacemaker. There is no pneumothorax. IMPRESSION: 1. The tip of a right IJ central venous catheter projects over the proximal right atrium. No pneumothorax. 2. Mild to moderate pulmonary edema with bilateral effusions. DICTATED BY: Luisa Enrique MD DATE/TIME DICTATED:11/08/172020 IRONWORKER APPRENTICE SHOP:NORBERT DATE/TIME TRANSCRIBED:11/08/172020 Renal US IMPRESSION: Slightly limited assessment due to shadowing by overlying bowel gas. 1. No evidence of hydronephrosis or nephrolithiasis. 2. Large exophytic mid right renal cyst again noted, unchanged. 3. Prostate gland enlarged and heterogeneous. DICTATED BY: Quyen SHAH,Rosita Mi DATE/TIME DICTATED:11/07/171244 IRONWORKER APPRENTICE SHOP:NORBERT DATE/TIME TRANSCRIBED:11/07/171244 Assessment/Plan Assessment/Plan Impression: 87-year-old gentleman with past medical history of CHFpEF (EF>55% 2016), paroxysmal atrial fibrillation previously on Xarelto stopped due to GI bleeding in 2012, s/p pacemaker in R ventricle for bifascicular block, hypertension, hyperlipidemia, colon cancer status post resection and radiotherapy, syncope in 2013 was admitted on 11/06/17. Developed hypotension (? infectious vs non infectious causes); blood culture from 11/06 one out 2 bottles is growing gram-positive cocci in clusters (? S. aureus vs SCN), and he received today overnight one dose of iv vancomycin (1.5 gm). HILDA DVT L LE Suggestion: 1. Obtain random vancomycin level in am; observe off abx; if spiking fever or hypotension please call; also repeat UA/UC. 2. BC x2 in am 11/10/17. 3. Trend CBC, BMP. 4. Sputum cx if productive cough. Consult Acknowledgment - Thank you for your consult request.
[2017-11-09 16:00] VITALS: BP 64/44
[2017-11-09 18:02] LABS: PTT 97 SEC (25-37)
[2017-11-09 23:00] VITALS: BP 102/56
--- NOTE | 2017-11-10 00:43 | Event Note ---
Event Note Event Note: At 9 PM I was notified of low blood pressure down to 50s/30s. At that time patient was on 19 Levophedmcg/min and 15mcg/kg/min dobutamine drip. Levophed was increased to 20mcg/min, and dobutamine was decreased to 11 for concern it was contributing to the severe hypotension. Vasopressin was started and an arterial line was placed for continuous blood pressure monitoring. Of note, the patient was lethargic and difficult to arouse. Unable to provide consent for the procedure, which was obtained from his son over the telephone. After arterial line placement, a blood gas was obtained. Came back critical result 7.15/83/71/28 on fio2 0.7 nasal high flow. BiPAP was immediately started. Patient's mental status, blood pressure and repeat gas (7.27/59/72/27 on fio2 0.6 BiPAP) all improved within the next two hours. At 2 AM patient blood pressure was again down to 70s/40s. This was most likely a result of decreased preload from BiPAP. Patient was given 250 mL IV normal saline as a bolus. Blood pressure improved to 90s/50s. TSH and random cortisone were added to the morning labs. When the patinet mentation improved he asked for code status change, he would like to be DNR/DNI. The patient was A&O x3. Code status was changed.
[2017-11-10 00:50] LABS: PTT 83 SEC (25-37)
[2017-11-10 05:24] LABS: ABSOLUTE BASOPHIL COUNT 0 /CUMM (0.0-0.2); ABSOLUTE EOSINOPHIL COUNT 0.1 /CUMM (0.0-0.7); ABSOLUTE GRANULOCYTE CT 10.8 /CUMM (1.4-6.5); ABSOLUTE LYMPH COUNT 0.2 /CUMM (1.2-3.4); ABSOLUTE MONOCYTE COUNT 0.9 /CUMM (0.10-0.60); BASOPHIL % 0 % (0.0-2.0); EOSINOPHIL % 0.7 % (0-5); GRANULOCYTE % 89.7 % (42.2-75.2); HEMATOCRIT 46.7 % (42-52); MEAN CORPUSCULAR HGB 29.3 PG (27.0-31.0); MEAN CORPUSCULAR HGB CONC 30.9 G/DL (33.0-37.0); MEAN PLATELET VOLUME 9.3 FL (7.4-10.4); RBC DISTRIBUTION WIDTH 18.3 % (11.5-14.5); RED BLOOD CELL CT 4.92 /CUMM (4.70-6.10)
[2017-11-10 05:38] LABS: PLATELET COUNT 120 /CUMM (130-400)
--- NOTE | 2017-11-10 07:49 | PN- Resident CRCU ---
Purvi SHAH,Fiorella 11/10/17 0748: Subjective HPI/CRCU Issues: Overnight issues: Patient's blood pressure decreased his 50s over 30s at approximately 9 PM at which point patient was on Levophed and dobutamine. The rate of only that was increased from 19-20 mcg/m and dobutamine was decreased from 15 to 11. Patient was started on vasopressin and an arterial line was placed for continuous blood pressure monitoring. Patient was lethargic and difficult to arouse. Consent for arterial line was obtained from son. ABG was done which showed respiratory acidosis with hypercarbia with a PCO2 to of 83 and hypoxemia with PO2 of 72. Patient was placed on BiPAP and received a 250 mL IV normal saline bolus with improvement in his blood pressure to 90s over 50s. Patient's mentation improved and asked to be DNR/DNI. CODE STATUS was changed as patient had capacity to make his own medical decisions. Patient's family was contacted overnight however did not respond. Discussion with patient's daughter was held this morning and she is agreeable with patient's current wishes. Patient states that he does not wish to continue current medical treatment. Patient denies any pain. Reports shortness of breath and discomfort with the BIPAP machine. Vitals: Tmax 98.5, heart rate 94-114, first-degree AV block, sinus tachycardia, respiration rate 28-39, blood pressure 93/47, currently on BiPAP and 60% oxygen, saturating at 95% Currently on IV heparin drip, levo fed, dobutamine, vasopressin Total intake 6683, output 5713 Objective Vital Signs & I&O Last 8 Hrs of Vitals and I&O: Vital Signs Result Date Time Pulse Ox 96 11/10 1040 Pulse 120 11/10 1040 B/P 87/47 11/10 0838 O2 Delivery BIPAP 11/10 08 O2 Flow Rate 60% 11/10 08 Temp 97.2 11/10 08 Resp 28 11/10 0800 Intake & Output 11/10 0000 11/09 1600 11/09 0800 Intake Total 1540 879.2 759 Output Total 173 300 420 Balance 1367 579.2 339 Intake, IV 1320 489.2 659 Intake, Oral 220 390 100 Number 0 Bowel Movements Output, Urine 173 300 420 Patient 214 lb Weight Weight Bed scale Measurement Method Exam General Appearance: well developed/nourished, anxious, moderate distress Head: atraumatic, normal appearance Respiratory: decreased breath sounds, crackles, rhonchi, respiratory distress Cardiovascular: regular rate/rhythm Gastrointestinal: normal bowel sounds, distention, tenderness, abdominal hernia- chronic pain at site Extremities: no edema, bilateral lower extremity erythema Cranial Nerves: normal hearing, PERRL Skin: intact, normal color IV Drips IV Drips: IV Levophed IV Dobutamine IV vasopressor Current Medications: Current Medications Sig/Lexi Start time Last Medication Dose Route Stop Time Status Admin Artificial Tears 2 GTT Q2P PRN 11/10 1115 DCD OU Aspirin Buffered 81 MG DAILY 11/07 1000 DC 11/09 PO 1010 Atorvastatin Calcium 20 MG 1700 11/07 1700 DC 11/09 PO 1643 Bisacodyl 10 MG DAILY NEEDED PRN 11/10 1115 DCD MI Dobutamine HCl 250 MG Q6H 11/09 2000 DC 11/10 Dextrose/Water 250 ML IV 0838 Dobutamine HCl 250 MG Q24H 11/09 1230 DC 11/09 Dextrose/Water 250 ML IV 11/09 1959 1417 Glycerin 2 SPRAY Q4P PRN 11/10 1115 DCD PO Glycerin/Mineral Oil 1 BEULAH Q8P PRN 11/10 1115 DCD TOP Glycopyrrolate 400 MCG Q4P PRN 11/10 1115 DCD IV Heparin Sodium 25,000 UNIT Q24H 11/07 1630 DC 11/09 (Porcine) IV 1817 Sodium Chloride 500 ML Lidocaine 20 ML .STK-MED ONE 11/09 2029 DC IA 11/09 2030 Lorazepam 0.5 MG Q4 11/10 1400 DCD IV Morphine Sulfate 2 MG Q2P PRN 11/10 1115 DCD 04/ IV 1140 Norepinephrine 8 MG Q8H 11/09 2359 DC 11/10 Sodium Chloride 250 ML IV 0837 Norepinephrine 4 MG Q4H 11/09 1445 DC 11/09 Dextrose/Water 250 ML IV 2335 Phenylephrine HCl 40 MG .STK-MED ONE 11/10 0159 DC IM 11/10 0200 Scopolamine HBr 1 PAT Q72 11/10 1125 DCD TOP Sodium Chloride 250 ML BOLUS ONE 11/10 0230 DC 11/10 IV 11/10 0329 0224 Sodium Chloride 500 ML BOLUS ONE 11/09 1830 DC 11/09 IV 11/09 1928 1830 Vasopressin 40 UNITS Q16H 11/09 2229 DC 11/09 Sodium Chloride 100 ML IV 2230 Results Results: Laboratory Tests 11/10/17416: Lactic Acid 1.7, CBC w Diff NO MAN DIFF REQ, RBC 4.92, MCV 95.0 H, MCH 29.3, MCHC 30.9 L, RDW 18.3 H, MPV 9.3, Gran % 89.7 H, Lymphocytes % 1.9 L, Monocytes % 7.7, Eosinophils % 0.7, Basophils % 0, Absolute Granulocytes 10.8 H , Absolute Lymphocytes 0.2 L, Absolute Monocytes 0.9 H, Absolute Eosinophils 0.1, Absolute Basophils 0 11/10/17 040: Random Vancomycin Cancelled 11/10/17 034: Anion Gap 12, Estimated GFR 19 L, Glucose 125 H, Calcium 8.6, Phosphorus 6.1 H, Magnesium 2.1, Total Bilirubin 1.6 H, AST 20, ALT 27, Albumin 2.3 L, TSH 2.900, Cortisol AM Sample 37.3 H, Random Vancomycin 11.1 11/10/17 0130: pH 7.27 *L, pCO2 59 H, pO2 72 L, HCO3 27, ABG O2 Sat (Measured) 94.0 L, P-50 (Temp Corrected) Y, Carboxyhemoglobin 1.2 L, O2 Concentration % 60%, Temperature 96.2 L, Respiration Rate 28, O2 Delivery Method VISION-FFM, Vent Mode ST, Expiratory Pressure 6, Inspiratory Pressure 24, Phlebotomy Draw Site ZAP 11/10/17 0011: APTT 83 H 11/09/175: pH 7.15 *L, pCO2 83 *H, pO2 71 L, HCO3 28, ABG O2 Sat (Measured) 90.0 L, P-50 (Temp Corrected) Y, Carboxyhemoglobin 1.7, O2 Concentration % 70%, Temperature 97.9, O2 Delivery Method HI, Phlebotomy Draw Site ZAP Microbiology 11/10 416 BLOOD: Blood Culture - RECD 11/10 345 BLOOD: Blood Culture - RECD Impression/Plan Impression/Problem List Impression: Impression/Plan: Patient is an 87-year-old male with past medical history of heart failure with preserved ejection fraction (with ejection fraction of greater than 55% and right ventricular systolic pressure of greater than 100 mmHg in 2017), pulmonary hypertension, history of paroxysmal atrial fibrillation not on anticoagulation at this time due to GI bleeding (previously on Xarelto), 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 Today: Patient expressed desire to stop medical treatment overnight and today. He was initially switched to DNR/DNI. A discussion with the patient and his family was held. Patient stated he did not want further medical management at this point. Patient and his family were aware that without current medical care with pressors and respiratory support he will not survive. Dr. Stafford spoke to the family. Patient was continued on current medical therapy with no escalation. After a short period of time, patient and his family ( and daughter) decided that it was time for treatment to be discontinued. Patient was placed on comfort care measures at approximately 11AM today. Patient at approximately 1PM today. Patient is admitted to the ICU for management of the following: Respiratory: Acute hypoxic respiratory failure secondary to acute on chronic congestive heart failure and likely secondary to pulmonary embolism Patient on physical exam is volume overloaded with chest x-ray showing mild congestive heart failure and proBNP of 20,000. Patient continued to today on oxygen with increased respiratory effort and was placed on high flow oxygen. Patient saturation improved. Patient had a lower extremity doppler performed today with suspicion of DVTs due to lower extremity swelling and erythema and was found to have an extensive DVT in multiple veins of his left leg. There is high suspicion of pulmonary embolism in this patient which may have caused acute decompensation of his heart failure and led to this admission. IV heparin was restarted on 11/07 and vascular was contacted. Patient's respiratory status worsened over the weekend and was tranisitioned to BIPAP. - de-escalated treatment after patient placed on comfort care measures Infectious: Leukocytosis- likely reactive - Continue to monitor vitals and WBC Staph coag negative - blood culture from November 06 grew staph coag negative in 1 of 2 bottles. Likely contaminant. No further antibiotics were given. Cardiac: Cardiogenic shock in setting of right heart failure and presumed PE Patient over the weekend became hypotensive requiring the initiation of pressors. A central line was placed and patient was initially started on levophed. Due to patient's heart failure, an inotropic agent- dobutamine was added following cardiology recommendations. Patient's blood pressure improved however overnight became hypotensive and required addition of a second pressor. An arterial line was placed to more accurately measure blood pressure. - de-escalated treatment after patient placed on comfort care measures Acute on chronic congestive heart failure with significant pulmonary hypertension seen on previous echo See above Elevated troponin likely type II OH Troponins elevated likely due to demand ischemia in the setting of acute congestive heart failure and acute on chronic renal failure. No significant EKG changes seen. Troponins peaked at 0.90. Patient does not have any chest pain at this time. IV heparin for ACS protocol was discontinued per cardiology on (however note - that IV heparin has been restarted per PE/DVT protocol on at approximately 4:30PM). - de-escalated treatment after patient placed on comfort care measures History of paroxysmal atrial fibrillation- in NSR History of hypertension Blood pressure medication held in the setting of hypotension History of hyperlipidemia Heme: None Metabolic: None Alimentary: CHF diet, 1L fluid restriction, low Na and K Nephrology: Acute on chronic renal failure: Patient's baseline creatinine is approximately 1.3. On admission patient's creatinine is 3.5 which has decreased slightly to 3.4 today. Patient's renal failure may be secondary to congestive heart failure leading to a cardiorenal type picture however we will need to rule out other causes of acute renal failure including obstructive an intrinsic causes. Patient had a renal ultrasound today showing no evidence of hydronephrosis or nephrolithiasis with a large exophytic mid right renal cyst that is unchanged from previous imaging. Patient does have a enlarged prostate on ultrasound. - de-escalated treatment after patient placed on comfort care measures Neurology: Patient has no focal neurological deficits. Mentation is appropriate at this time. DVT prophylaxis: IV heparin discontinued Problem List: 1. Hypoxia 2. Pulmonary hypertension 3. Acute exacerbation of CHF (congestive heart failure) 4. Acute kidney injury Pain Ratin Tomorrow's Labs & Rationales: none- pt today Plan DVT/Prophylaxis: pharmacological Omid Stafford MD 11/10/17 1049: Attending MD Review Statement Attending Sign Off Attending Cosign Statement: I have: examined this patient, reviewed [facility] EMR data, personally reviewd images, discussd w/resident/PA/[employer], discussed mgmt plan w/pierre, discussed mgmt plan w/CM, discussed mgmt plan w/pt, agreed w/resident/PA/[employer], amended to note. Other Findings: Omid Schreiber M.D. have examined this patient, reviewed available EMR data, personally reviewed images, discussed with resident/PA/[employer], discussed management plan with housestaff and nursing staff, discussed managment plan all of healthcare providers, discussed management plan with patient and/or family, agreed with resident/PA/[employer]. The past history and parts of the chart have been autopopulated. Impression 87 year old man * CHF exacerbation with now a clinical presentation consistent with cardiogenic shock * HILDA, CKD stage III * hypoxemic respiratory failure - acute on chronic * paroxysmal a.flutter not on a/c secondary to GI bleed risk, hx of colorectal ca * pulmonary htn * Left lower extremity DVT Plan -pt changed code status to DNR/DNI -he wishes for comfort measures, he is awaiting to discuss with his -on vasopressors and inotropes -cardiology, nephrology, vascular consultations are appreciated -a/c with heparin -high flow o2, presumed pulmonary embolism DVT prophylaxis at all times TTS 35 min
[2017-11-10 08:00] VITALS: BP 92/52
--- NOTE | 2017-11-10 08:22 | Event Note ---
Event Note Event Note: I was notified by night house staff team that the change of code status was made after the patient himself decided so and he had the capacity to decide then. The family was unreachable over phone, and was left a message to call us back. Nobody had returned a call even during our signout time 7 am. (0700 hrs) I called patient's /person to notify Junie Blanchard over phone (the number listed in the EMR), who did not slate picker the phone thus the left a message to call us back in the ICU number. This is in regards to the update about patient's code status and also the patient's health condition in general. Will wait for a callback. 0820 hrs I briefly spoke with the patient, and his daughter was in the room, who I updated her separately regarding the patient's current critical condition, requiring three pressor support for BP, BiPAP for breathing (for the hypercapnea ), and his wishes to be considered DNR/DNI. His daughter was agreeable with the patient's decision for the change in code status, and even to make him comfort measures only if he decides so at any point of time whenever he has the capacity. I discussed this with the daughter in detail, who said she would bring her mother/patient's just to get updated and to have a conversation with the patient himself later today. Also, the family would like us to update his trend in health status later today. 0900 hrs I heard the patient having discussion with his daughter about goals of care while I was briefly int he room. Will leave it to the patient for now, and join whenever requested or later today when we have the discussion together. 0930 hrs
[2017-11-10 08:38] VITALS: BP 87/47
--- NOTE | 2017-11-10 10:26 | PN- Infect Dx ---
Subjective Subjective: Afebrile. He complains of discomfort in the left leg but is otherwise without complaints. His blood pressure remains low, requiring 3 pressors. Objective Last 24 Hrs of Vital Signs/I&O Vital Signs Date Time Temp Pulse Resp B/P B/P Pulse O2 O2 Flow FiO2 Mean Ox Delivery Rate 11/10 0838 106 87/47 04/ 0837 115 82/46 04/ 0805 115 94 04/ 0800 94 BIPAP 60% 11/10 0800 97.2 112 28 92/52 94 BIPAP 60% 11/10 0604 117 95 04/ 0500 94 28 108/48 04/ 0400 93 BIPAP 60% 11/10 0350 113 93 / 0136 102 29 96/55 / 0022 119 94 / 0015 106 29 93/46 04/ 0000 94 BIPAP 60% 11/09 2335 112 30 85/54 04/ 2300 96.2 109 30 102/56 94 BIPAP 60% 11/09 2039 103 30 58/48 11/09 2000 91 Nasal 55% Cannula 11/09 1600 98.5 119 29 64/44 92 Nasal 55% Cannula 11/09 1600 92 Nasal 55% Cannula 11/09 1417 84/61 04/ 1200 93 Nasal 55% Cannula 11/09 1200 98.2 84 27 102/60 93 Nasal 55% Cannula 11/09 1022 92 Nasal 55% Cannula Intake & Output / 1600 02 0800 / 0000 Intake Total 1257 1540 Output Total 405 173 Balance 852 1367 Intake, IV 1257 1320 Intake, Oral 220 Number 0 0 Bowel Movements Output, Urine 405 173 Physical Exam Other Physical Findings: He is awake and alert on BiPAP in mild respiratory distress Neck right IJ triple-lumen catheter with no inflammation at the site Lungs scattered rhonchi bilaterally Heart regular rhythm with no murmur Abdomen is soft, nontender with positive bowel sounds Extremities bilateral lower extremity edema, with erythema over the anterior aspect of both legs Vitale catheter remains in place Results Last 24 Hours of Lab Results: Laboratory Tests 11/10 11/10 11/10 0417 0400 0346 Chemistry Sodium (137 - 145 mmol/L) 139 Potassium (3.5 - 5.1 mmol/L) 4.8 Chloride (98 - 107 mmol/L) 99 Carbon Dioxide (22 - 30 mmol/L) 28 Anion Gap (5 - 16) 12 BUN (9 - 20 mg/dL) 105 *H Creatinine (0.7 - 1.2 mg/dL) 3.1 H Estimated GFR (>60 ml/min) 19 L Glucose (65 - 99 mg/dL) 125 H Lactic Acid (0.7 - 2.1 mmol/L) 1.7 Calcium (8.4 - 10.2 mg/dL) 8.6 Phosphorus (2.5 - 4.5 mg/dL) 6.1 H Magnesium (1.6 - 2.3 mg/dL) 2.1 Total Bilirubin (0.2 - 1.3 mg/dL) 1.6 H AST (17 - 59 U/L) 20 ALT (21 - 72 U/L) 27 Albumin (3.5 - 5.0 g/dL) 2.3 L TSH (0.270 - 4.200 uIU/mL) 2.900 Cortisol AM Sample (4.46 - 22.7 ug/dL) 37.3 H Hematology CBC w Diff NO MAN DIFF REQ WBC (4.8 - 10.8 /CUMM) 12.0 H RBC (4.70 - 6.10 /CUMM) 4.92 Hgb (14.0 - 18.0 G/DL) 14.4 Hct (42 - 52 %) 46.7 MCV (80.0 - 94.0 FL) 95.0 H MCH (27.0 - 31.0 PG) 29.3 MCHC (33.0 - 37.0 G/DL) 30.9 L RDW (11.5 - 14.5 %) 18.3 H Plt Count (130 - 400 /CUMM) 120 L MPV (7.4 - 10.4 FL) 9.3 Gran % (42.2 - 75.2 %) 89.7 H Lymphocytes % (20.5 - 51.1 %) 1.9 L Monocytes % (1.7 - 9.3 %) 7.7 Eosinophils % (0 - 5 %) 0.7 Basophils % (0.0 - 2.0 %) 0 Absolute Granulocytes (1.4 - 6.5 /CUMM) 10.8 H Absolute Lymphocytes (1.2 - 3.4 /CUMM) 0.2 L Absolute Monocytes (0.10 - 0.60 /CUMM) 0.9 H Absolute Eosinophils (0.0 - 0.7 /CUMM) 0.1 Absolute Basophils (0.0 - 0.2 /CUMM) 0 Toxicology Random Vancomycin (ug/ml) Cancelled 11.1 04 04/ 0411/09 0130 0011 2305 1650 Blood Gas pH (7.35 - 7.45 PH) 7.27 *L 7.15 *L pCO2 (35 - 45 TORR) 59 H 83 *H pO2 (80 - 100 TORR) 72 L 71 L HCO3 (21 - 28 MEQ/L) 27 28 ABG O2 Sat (Measured) (>96.0 %) 94.0 L 90.0 L P-50 (Temp Corrected) Y Y Carboxyhemoglobin (1.5 - 5.0 %) 1.2 L 1.7 O2 Concentration % 60% 70% Temperature (97.0 - 100.0 FARH) 96.2 L 97.9 Respiration Rate (BPM) 28 O2 Delivery Method VISION-FFM NC Vent Mode ST Expiratory Pressure (CM H2O P) 6 Inspiratory Pressure (CM H2O P) 24 Coagulation APTT (25 - 37 SEC) 83 H 97 H Miscellaneous Phlebotomy Draw Site INNA KEITH Last 24 Hours of Burak Results: Blood cultures November 06 one bottle positive for coag-negative Staph Blood cultures 2 November 10 negative Assessment/Plan ID Impression: Condition remains poor with persistent hypotension, requiring 3 pressors, and respiratory failure, requiring BiPAP, though he remains awake and alert. He remains afebrile with a mild leukocytosis status post 1 dose of Vancomycin yesterday for one positive blood culture, which has been identified as coag- negative Staph, which is a presumed contaminant. He has no evidence for any infectious process; therefore he can be followed off antibiotics. Suggestion: 1. Further management with regard to his overall level of care per Medicine 2. Continue to follow off antibiotics
--- NOTE | 2017-11-10 10:58 | Event Note ---
Event Note Event Note: Spoke to patient and his family at 10:55AM. They are adamant about converting patient to comfort care at this point and do not want to wait to see if patient improves with current medical care. I spoke to Dr. Stafford and patient will be converted to comfort measures only at this point. Levophed, dobutamine, vasopressor were all stopped. Comfort care orders were placed. The patient's family was updated. Patient this afternoon, at approximately 12:50PM, . Patient's family was present at the time of .
--- NOTE | 2017-11-10 11:03 | PN- Cardiology ---
Subjective Subjective: Resting comfortably on BiPAP. Denies any pain. Objective Vital Signs and I&Os Vital Signs Date Time Temp Pulse Resp B/P B/P Pulse O2 O2 Flow FiO2 Mean Ox Delivery Rate 11/10 1040 120 96 / 0838 106 87/47 04/ 0837 115 82/46 04/02 0805 115 94 04/ 0800 94 BIPAP 60% 11/10 0800 97.2 112 28 92/52 94 BIPAP 60% 11/10 0604 117 95 04/ 0500 94 28 108/48 04/ 0400 93 BIPAP 60% 11/10 0350 113 93 04/ 0136 102 29 96/55 04/ 0022 119 94 04/ 0015 106 29 93/46 04/ 0000 94 BIPAP 60% 11/09 2335 112 30 85/54 04 2300 96.2 109 30 102/56 94 BIPAP 60% 11/09 2039 103 30 58/48 11/09 2000 91 Nasal 55% Cannula 11/09 1600 98.5 119 29 64/44 92 Nasal 55% Cannula 11/09 1600 92 Nasal 55% Cannula 11/09 1417 84/61 04/ 1200 93 Nasal 55% Cannula 11/09 1200 98.2 84 27 102/60 93 Nasal 55% Cannula Intake & Output 11/10 1600 11/10 0800 11/10 0000 11/09 1600 11/09 0800 11/09 0000 Intake Total 1257 1540 879.2 759 553 Output Total 405 173 300 420 705 Balance 852 1367 579.2 339 -152 Intake, IV 1257 1320 489.2 659 333 Intake, Oral 220 390 100 220 Number 0 0 Bowel Movements Output, Urine 405 173 300 420 705 Patient 214 lb Weight Weight Bed scale Measurement Method Physical Exam: General: Comfortable on BiPAP Eyes: No obvious scleral icterus. HEENT: No abnormal jugular venous pulsations. Cardiovascular: Normal intensity S1/S2. Regular. PPM. Respiratory: Basilar rales noted Abdomen: Soft, nontender with no guarding or rebound tenderness. Musculoskeletal: No clubbing or cyanosis noted, 1-2+ lower extremity edema Skin: Warm, stasis changes noted Neurologic: No gross focal deficits noted. Current Medications: Current Medications Sig/Lexi Start time Last Medication Dose Route Stop Time Status Admin Aspirin Buffered 81 MG DAILY 11/07 1000 AC 11/09 PO 1010 Atorvastatin Calcium 20 MG 1700 11/07 1700 AC 11/09 PO 1643 Dobutamine HCl 250 MG Q6H 11/09 2000 AC 11/10 Dextrose/Water 250 ML IV 0838 Dobutamine HCl 250 MG Q24H 11/09 1230 DC 11/09 Dextrose/Water 250 ML IV 11/09 195 1417 Heparin Sodium 25,000 UNIT Q24H 11/07 1630 AC 11/09 (Porcine) IV 1817 Sodium Chloride 500 ML Lidocaine 20 ML .STK-MED ONE 11/09 202 DC IA 11/09 2030 Norepinephrine 8 MG Q8H 11/09 2359 AC 11/10 Sodium Chloride 250 ML IV 0837 Norepinephrine 4 MG Q4H 11/09 1445 DC 11/09 Dextrose/Water 250 ML IV 2335 Norepinephrine 4 MG .STK-MED ONE 11/09 1431 DC IV 11/09 1432 Norepinephrine 4 MG Q4H 11/09 1045 DC 11/09 Dextrose/Water 250 ML IV 1046 Phenylephrine HCl 40 MG .STK-MED ONE 11/10 0159 DC IM 11/10 0200 Sodium Chloride 250 ML BOLUS ONE 11/10 0230 DC 11/10 IV 11/10 0329 0224 Sodium Chloride 500 ML BOLUS ONE 11/09 1830 DC 11/09 IV 11/09 1929 1830 Vasopressin 40 UNITS Q16H 11/09 2230 AC 11/09 Sodium Chloride 100 ML IV 2230 Results Last 48 Hrs of Labs/Mics: Laboratory Tests 11/10/17 0417: Lactic Acid 1.7, CBC w Diff NO MAN DIFF REQ, RBC 4.92, MCV 95.0 H, MCH 29.3, MCHC 30.9 L, RDW 18.3 H, MPV 9.3, Gran % 89.7 H, Lymphocytes % 1.9 L, Monocytes % 7.7, Eosinophils % 0.7, Basophils % 0, Absolute Granulocytes 10.8 H , Absolute Lymphocytes 0.2 L, Absolute Monocytes 0.9 H, Absolute Eosinophils 0.1, Absolute Basophils 0 11/10/17 0400: Random Vancomycin Cancelled 11/10/17 0346: Anion Gap 12, Estimated GFR 19 L, Glucose 125 H, Calcium 8.6, Phosphorus 6.1 H, Magnesium 2.1, Total Bilirubin 1.6 H, AST 20, ALT 27, Albumin 2.3 L, TSH 2.900, Cortisol AM Sample 37.3 H, Random Vancomycin 11.1 11/10/17 0130: pH 7.27 *L, pCO2 59 H, pO2 72 L, HCO3 27, ABG O2 Sat (Measured) 94.0 L, P-50 (Temp Corrected) Y, Carboxyhemoglobin 1.2 L, O2 Concentration % 60%, Temperature 96.2 L, Respiration Rate 28, O2 Delivery Method VISION-FFM, Vent Mode ST, Expiratory Pressure 6, Inspiratory Pressure 24, Phlebotomy Draw Site [place] 11/10/17 0011: APTT 83 H 11/09/17 2305: pH 7.15 *L, pCO2 83 *H, pO2 71 L, HCO3 28, ABG O2 Sat (Measured) 90.0 L, P-50 (Temp Corrected) Y, Carboxyhemoglobin 1.7, O2 Concentration % 70%, Temperature 97.9, O2 Delivery Method NC, Phlebotomy Draw Site [place] 11/09/17 1650: APTT 97 H 11/09/17 0530: Anion Gap 12, Estimated GFR 19 L, Glucose 125 H, Calcium 8.9, Phosphorus 6.9 H, Magnesium 2.2, Total Bilirubin 1.3, AST 24, ALT 33, Albumin 2.7 L, APTT 85 H, CBC w Diff NO MAN DIFF REQ, RBC 5.36, MCV 94.8 H, MCH 29.1, MCHC 30.7 L, RDW 18.0 H, MPV 9.4, Gran % 87.9 H, Lymphocytes % 2.4 L, Monocytes % 9.0, Eosinophils % 0.5, Basophils % 0.2, Absolute Granulocytes 11.6 H, Absolute Lymphocytes 0.3 L, Absolute Monocytes 1.2 H, Absolute Eosinophils 0.1, Absolute Basophils 0 11/08/17 1630: APTT 69 H 11/08/17 1200: Urine IEP Pending, Ur Creatinine 24 Hour Pending, Ur Total Protein 24 Hr Pending , Protein/Creat Ratio 24h Pending, U Protein Electrophores Pending, Urine Albumin (%) Pending, U [id number] Pending, U [id number] Pending, U Beta Globulin Pending, U Gamma Globulin Pending, U Abnormal Prot Band 1 Pending, U Abnormal Prot Band 2 Pending, U Abnormal Prot Band 3 Pending Recent Imaging Studies: Telemetry tracings were personally reviewed and shows sinus tachycardia with PVCs Assessment/Plan Assessment/Plan 1. Acute on chronic diastolic heart failure with lower extremity edema 2. Paroxysmal atrial flutter not on anticoagulation due to GI bleed risk 3. Acute kidney injury 4. Elevated troponin likely due to type II SD 5. Hyperlipidemia 6. Prior colorectal cancer status post resection and radiation therapy 7. History of bifascicular block; status post single lead pacemaker 2016 8. History of severe pulmonary hypertension with right ventricular dysfunction 9. Hypotension requiring pressors 10. Lower extremity DVT Patient remains on dual intravenous pressor support as well as inotropic support with dobutamine. Creatinine grossly unchanged. The blood culture revealed coag negative staph which is likely due to contaminant. Remains on intravenous heparin for DVT and presumed PE. He is awake and alert and has decided he wants to be DNR/DNI with likely progression to comfort measures. Kt Jean MD [facility] Continue telemetry? Yes
--- NOTE | 2017-11-10 18:51 | Discharge Summary ---
Visit Information Visit Dates Admission Date: 11/06/17 Discharge Date: 11/10/17 Hospital Course Course Attending Physician: Omid Stafford MD Primary Care Physician: Kika SHAH,Mendez Garrison Hospital Course: Patient is an 87-year-old male with past medical history of heart failure with preserved ejection fraction (with ejection fraction of greater than 55% and right ventricular systolic pressure of greater than 100 mmHg in 2017), pulmonary hypertension, history of paroxysmal atrial fibrillation not on anticoagulation at this time due to GI bleeding (previously on Xarelto), 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 Patient was admitted to the ICU for management of the following: Problems: 1. Acute hypoxic respiratory failure 2/2 decompensated heart failure and presumed PE 2. Cardiogenic shock in setting of right heart failure and presumed PE 3. Extensive left lower extremity venous thromboembolism 4. Acute on chronic renal failure likely cardiorenal 5. Type II SD 6. Leukocytosis - likely reactive 7. Staph coag negative - likely contaminant 8. History of paroxysmal a.fib, not on anticoagulation due to history of GI bleed 9. History of HTN and HLD Acute hypoxic respiratory failure secondary to acute on chronic congestive heart failure and to presumed pulmonary embolism Patient on initial physical exam was volume overloaded with chest x-ray showing mild congestive heart failure and proBNP of 20,000. Patient received IV lasix with initial improvement in his respiratory status. However over the course of the admission, patient's respiratory status worsened and was transitioned from nasal cannula to high flow and then to BIPAP. Patient had a lower extremity doppler on 11/07 with suspicion of DVTs due to lower extremity swelling and erythema and was found to have an extensive DVT in multiple veins of his left leg. Patient was on IV heparin. Vascular surgery was consulted. Cardiogenic shock in setting of right heart failure and presumed PE On 11/08 became hypotensive requiring the initiation of pressors. A central line was placed and patient was initially started on levophed. Due to patient's heart failure, an inotropic agent- dobutamine was added following cardiology recommendations. Patient's blood pressure improved however overnight on 11/10 patient became hypotensive and required addition of vasopressin. An arterial line was placed to more accurately measure blood pressure. Patient's blood pressure remained close to 80s to 90s systolic. Staph coag negative - blood culture from November 06 grew staph coag negative in 1 of 2 bottles. Patient initially received vancomycin 1 dose. No further antibiotics were given after identification of organism. Patient remained afebrile with downtrending leukocytosis. Elevated troponin likely type II SD Troponins elevated likely due to demand ischemia in the setting of acute congestive heart failure and acute on chronic renal failure. No significant EKG changes seen. Troponins peaked at 0.90. Patient did not have any chest pain during admission. Patient was initially started on IV heparin for ACS which was continued for DVT/PE. Acute on chronic renal failure: Patient's baseline creatinine is approximately 1.3. On admission patient's creatinine is 3.5. Patient's renal failure may be secondary to congestive heart failure leading to a cardiorenal syndrome. Patient had a renal ultrasound showing no evidence of hydronephrosis or nephrolithiasis with a large exophytic mid right renal cyst that is unchanged from previous imaging. Patient does have a enlarged prostate on ultrasound. Patient had a wang placed with initial improvement in creatinine. Further diuresis was held in setting of hypotension. De-escalation of care at request of patient and family: Patient expressed desire to stop medical treatment on 11/09 and 11/10. He was initially switched to DNR/DNI. A discussion with the patient and his family was held. Patient stated he did not want further medical management at this point. Patient and his family were aware that without current medical care with pressors and respiratory support he would not survive. Dr. Stafford and the ICU team spoke to the family. Patient was initially continued on current medical therapy with no escalation. After a short period of time, patient and his family ( and daughter) decided that it was time for treatment to be discontinued. Patient was placed on comfort care measures on 11/10 at approximately 11AM. Patient at approximately 1PM on 11/10 with family at bedside. Allergies: Coded Allergies: NO KNOWN ALLERGIES (12/18/15) Significant Procedures: Medicine Procedure Procedure Date: 11/08/17 Medical Procedure(s): central venous cath place Pre-Operative Diagnosis: Hypotension Post-Operative Diagnosis: Hypotension Estimated Blood Loss: less than 50ml Anesthesia: local anesthetic Procedure Findings: Procedure - Central Line Resident - Fernando Murray/Justin Nino Attending - [facility] Consent for procedure was obtained and is in chart. The Patient's right internal jugular was prepped and draped in usual sterile fashion. 2% Lidocaine was used to anesthetize the area. A Triple lumen central line was introduced over a wire via the Seldinger technique and the catheter sutured into place. Good blood flow was noted from the each port. Blood loss was minimal and the patient tolerated the procedure well without complications. Chest xray was ordered to assess for pneumothorax and catheter placement. Pertinent Lab Results: SERVICE DATE: 11/06/17 EXAM TYPE: RAD - XRY-PORTABLE CHEST XRAY EXAMINATION: XR PORTABLE CHEST CLINICAL INFORMATION: Hypoxia COMPARISON: 02/07/2017 TECHNIQUE: Portable frontal view of the chest was obtained. FINDINGS: Changes of mild CHF. Size remains enlarged. Single lead pacer intact and unchanged. Limited imaging. No ectopic air grossly. IMPRESSION: CHF as above. SERVICE DATE: 11/07/17- EXAM TYPE: US - US-RENAL/KIDNEY EXAMINATION: US RETROPERITONEAL COMPLETE (RENAL) CLINICAL INFORMATION: Acute kidney injury. Renal failure. Assess for hydronephrosis/obstructive uropathy. COMPARISON: CT scan of the abdomen and pelvis dated 03/04/2014. TECHNIQUE: Real-time imaging of the kidneys and bladder. FINDINGS: Evaluation of the kidneys is slightly limited due to shadowing by adjacent bowel gas. RIGHT KIDNEY: 8.2 x 5.3 x 6.0 cm (SAG x AP x TRV). The kidney is normal in size, contour, and echogenicity. Renal cortical thickness is normal. No calculi. No hydronephrosis. There is a large exophytic 4.9 x 4.3 x 5.8 cm thin-walled anechoic cyst seen arising from the mid right kidney, similar to the previous CT scan from 03/04/2014. No suspicious renal mass noted. LEFT KIDNEY: 7.4 x 5.8 x 4.4 cm (SAG x AP x TRV). The kidney is normal in size, contour, and echogenicity. Renal cortical thickness is normal. No calculi or focal parenchymal lesions. No hydronephrosis. BLADDER: Well-distended and normal. Bilateral ureteral jets are not demonstrated. Prevoid bladder volume is 303 mL. Postvoid bladder volume is 106.2 mL. PROSTATE GLAND: Prostate gland is seen in outline, measuring 4.5 x 4.5 x 6.8 cm (67.9 mL volume). IMPRESSION: Slightly limited assessment due to shadowing by overlying bowel gas. 1. No evidence of hydronephrosis or nephrolithiasis. 2. Large exophytic mid right renal cyst again noted, unchanged. 3. Prostate gland enlarged and heterogeneous. SERVICE DATE: 11/07/17 EXAM TYPE: CARD - ECHOCARDIOGRAM FINDINGS Left Ventricle Left ventricular cavity size normal. Left ventricular wall thickness moderately increased. No obvious regional wall motion abnormalities. Left ventricular ejection fraction is estimated at 55 %. Flattened septum in systole and diastole consistent with right ventricle pressure and volume overload. Right Ventricle Moderate right ventricular dilatation. Moderately reduced right ventricular global systolic function. Catheter/pacemaker wire in the right ventricular cavity. Right Atrium Mild right atrial dilatation. Left Atrium Mild left atrial dilatation. Mitral Valve Mild mitral annular calcification. Mild mitral regurgitation. Aortic Valve Diffuse thickening of the aortic valve cusps with reduced excursion. Mild aortic stenosis. Tricuspid Valve Tricuspid valve not well visualized. Moderate tricuspid regurgitation. Severe pulmonary hypertension (RVSP > 80 mmHg). Pulmonic Valve Pulmonic valve not well visualized. Pericardium Small pericardial effusion. Great Vessels Normal size aortic root. CONCLUSIONS Technically difficult study. Left ventricular cavity size normal. Left ventricular wall thickness moderately increased. No obvious regional wall motion abnormalities. Left ventricular ejection fraction is estimated at 55 %. Flattened septum in systole and diastole consistent with right ventricle pressure and volume overload. Moderate right ventricular dilatation. Moderately reduced right ventricular global systolic function. Catheter/pacemaker wire in the right ventricular cavity. Mild right atrial dilatation. Mild left atrial dilatation. Mild aortic stenosis. Moderate tricuspid regurgitation. Severe pulmonary hypertension (RVSP > 80 mmHg). Small pericardial effusion. Jm Jean M.D. (Electronically Signed) Final Date: 08 November 2017 10:28 MEASUREMENTS (Male / Female) Normal Values 2D ECHO LV Diastolic Diameter PLAX 2.7 cm 4.2 - 5.9 / 3.9 - 5.3 cm LV Systolic Diameter PLAX 2.0 cm 2.1 - 4.0 cm LV Fractional Shortening PLAX 25.9 % 25 - 46 % LV Ejection Fraction 2D Teich 52.9 % IVS Diastolic Thickness 1.6 cm LVPW Diastolic Thickness 1.6 cm LV Relative Wall Thickness 1.2 LVOT Diameter 2.2 cm Aortic Root Diameter 3.2 cm Ascending Aorta Diameter 3.6 cm DOPPLER AV Peak Velocity 175.0 cm/s AV Peak Gradient 12.3 mmHg AV Mean Velocity 107.0 cm/s AV Mean Gradient 6.0 mmHg AV Velocity Time Integral 24.4 cm LVOT Peak Velocity 90.2 cm/s LVOT Peak Gradient 3.3 mmHg LVOT Mean Velocity 60.9 cm/s LVOT Mean Gradient 2.0 mmHg LVOT Velocity Time Integral 15.1 cm LVOT Stroke Volume 57.4 cm LVOT Cardiac Index 1691.2 cm/minm AV Area Cont Eq vti 2.4 cm AV Area Cont Eq pk 2.0 cm Mitral E Point Velocity 112.2 cm/s Mitral A Point Velocity 100.0 cm/s Mitral E to A Ratio 1.1 MV Deceleration Time 142.5 ms TR Peak Velocity 404.0 cm/s TR Peak Gradient 65.3 mmHg PV Peak Velocity 76.0 cm/s PV Peak Gradient 2.3 mmHg LV E' Lateral Velocity 3.9 cm/s Mitral E to LV E' Lateral Ratio 28.8 LV E' Septal Velocity 5.9 cm/s Mitral E to LV E' Septal Ratio 19.2 SERVICE DATE: 11/07/17 EXAM TYPE: US - US-EXT BILAT VENOUS DOPPLER EXAMINATION: BILATERAL LOWER EXTREMITY VENOUS ULTRASOUND CLINICAL INFORMATION: Bilateral lower extremity swelling and erythema. Rule out DVT. COMPARISON: Bilateral lower extremity venous Doppler ultrasound dated 02/07/2017. TECHNIQUE: Doppler spectral analysis and color flow Doppler imaging was performed of the lower extremities. Compression and augmentation maneuvers were performed. FINDINGS: Right lower extremity: The right common femoral vein, greater saphenous vein takeoff, femoral vein, and popliteal vein are normally compressible with normal augmentation responses and phasic changes seen with Doppler imaging. The midcalf posterior tibial veins are patent as well. The peroneal veins could not be seen. No popliteal cyst is seen. Left lower extremity: There is a nonocclusive thrombus within the left common femoral vein with incomplete compressibility and color flow demonstrated. 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 The left popliteal vein and the posterior tibial veins in the calf are occluded as well. The left peroneal veins could not be imaged. There is prominent soft tissue edema seen in the soft tissues of the left calf. No popliteal cyst is seen. IMPRESSION: 1. Positive deep venous thrombosis in the left lower extremity. 2. No evidence of deep venous thrombosis in the right lower extremity. SERVICE DATE: 11/08/17 EXAM TYPE: RAD - XRY-PORTABLE CHEST XRAY EXAMINATION: XR PORTABLE CHEST CLINICAL INFORMATION: 87-year-old man post central line placement. COMPARISON: 11/06/2017 chest radiograph TECHNIQUE: Portable frontal view of the chest was obtained. FINDINGS: There has been interval placement of a right IJ central venous catheter. The catheter tip projects over the right atrium. There is mild to moderate pulmonary edema with superimposed bibasilar opacities likely reflecting effusions with associated atelectasis/consolidation. Moderate to severe cardiomegaly is unchanged. There is a left-sided single lead pacemaker. There is no pneumothorax. IMPRESSION: 1. The tip of a right IJ central venous catheter projects over the proximal right atrium. No pneumothorax. 2. Mild to moderate pulmonary edema with bilateral effusions. Disposition Summary Disposition Principal Diagnosis: Cardiogenic shock 2/2 right heart failure and presumed PE Additional Diagnosis: Acute hypoxic respiratory failure, acute on chronic renal failure, type II SD Discharge Disposition: in the hospital after being placed on comfort care measures Discharge Instructions General Discharge Information Code Status: Comfort Care Only Patient's Diet: n/a Patient's Activity: n/a Follow-Up Instructions/Appts: n/a Copies To: Kika SHAH,Mendez Garrison
== END 2017-11-10 12:50 | disposition expired ==
LOC: ERH 17:19 → CRI 19:52 → ERHI 19:52 → ENTRNSPT 22:03 → EDTRNSPTSTS 22:14 → EDTRNSPT 22:27 → CRI 22:30 → CMPTRNSPT 22:50 → CRI 11-07 08:27
PROVIDERS: Internal Medicine; Internal Medicine Critical Care Medicine; Physician Assistant; Physician Assistant Medical; Student in an Organized Health Care Education/Training Program
PROC: 02H633Z Insertion of Infusion Device into Right Atrium, Percutaneous Approach (ICD-10-PCS; principal; 2017-11-08)
PROC: 5A09357 Assistance with Respiratory Ventilation, Less than 24 Consecutive Hours, Continuous Positive Airway Pressure (ICD-10-PCS; 2017-11-10)
DX: I13.0 Hypertensive heart and chronic kidney disease with heart failure and stage 1 through stage 4 chronic kidney disease, or unspecified chronic kidney disease (principal); I50.33 Acute on chronic diastolic (congestive) heart failure; I21.A1 Myocardial infarction type 2; I26.99 Other pulmonary embolism without acute cor pulmonale; J96.21 Acute and chronic respiratory failure with hypoxia; R57.0 Cardiogenic shock; E87.2 Acidosis; I95.9 Hypotension, unspecified; N17.9 Acute kidney failure, unspecified; I82.412 Acute embolism and thrombosis of left femoral vein; I82.432 Acute embolism and thrombosis of left popliteal vein; I82.442 Acute embolism and thrombosis of left tibial vein; Z51.5 Encounter for palliative care; I27.20 Pulmonary hypertension, unspecified; N18.3 Chronic kidney disease, stage 3 (moderate); I48.0 Paroxysmal atrial fibrillation; Z66 Do not resuscitate; E78.5 Hyperlipidemia, unspecified; Z92.21 Personal history of antineoplastic chemotherapy; Z95.0 Presence of cardiac pacemaker; Z85.038 Personal history of other malignant neoplasm of large intestine; Z90.49 Acquired absence of other specified parts of digestive tract; Z87.891 Personal history of nicotine dependence
CPT/HCPCS: 84133; 84300; CCU; 36415; 71045; 76775; 81001; 82436; 82570; 87040; 87086; 87147; 87804; 87804-59; 93005; 93010; 93306; 93970; 96374; 99291; J1644; J1940; J3370; J7040; J7060